=== PATIENT | female | born 1985 | race Caucasian/White ===

== ENCOUNTER → 2017-05-21 07:30 | Outpatient (CLI) | payer OTHER, MEDICAID, SELFPAY ==
[2017-05-21 08:05] LABS: Basophils # 0.1 K/mm3 (0-0.2); Basophils % 1.2 % (0.1-2.0); Eosinophils # 0.2 K/mm3 (0.0-0.4); Eosinophils % 2.5 % (0.1-12.0); Hematocrit 39.1 % (37.0-47.0); Hemoglobin 12.7 g/dL (12.2-16.2); Lymphocytes # 2.5 K/mm3 (0.7-4.5); Lymphocytes % 31.5 K/mm3 (10-50); Mean Corpuscular HGB Conc 32.6 g/dL (31.8-35.4); Mean Corpuscular Volume 89.1 fl (81-99); Mean Platelet Volume 7.6 fl (7.4-10.4); Monocytes # 0.4 K/mm3 (0.1-1.0); Monocytes % 4.8 % (1.7-9.3); Neutrophils # 4.7 K/mm3 (1.8-7.8); Platelet Count 230 K/mm3 (142-424); Red Blood Count 4.39 M/mm3 (4.20-5.40); Red Cell Distribution Width 13.7 % (11.5-17.5); White Blood Count 7.9 K/mm3 (4.8-10.8)
[2017-05-21 08:39] LABS: Anion Gap 11.2 mEq/L (5-15); Blood Urea Nitrogen 7 mg/dL (7-18); Carbon Dioxide 27 mmol/L (21.0-32.0); Chloride 107 mmol/L (98-107); Creatinine,Serum 0.61 mg/dL (0.55-1.02); Estimated Glomerular Filt Rate 112 ml/min (>60); GFR (African American) 136 ML/MIN (>60); Glucose 87 mg/dL (74-106); Potassium 4.2 mmoL/L (3.5-5.1); Sodium 141 mmol/L (136-145)
[2017-05-21 08:42] LABS: HCG,Quantitative 0 mIU/mL
== END ==
PROVIDERS: PCP Family Medicine; Visit Provider Nurse Practitioner Obstetrics & Gynecology
DX: N92.0 Excessive and frequent menstruation with regular cycle (principal); N94.6 Dysmenorrhea, unspecified; R10.2 Pelvic and perineal pain; Z01.812 Encounter for preprocedural laboratory examination
CPT/HCPCS: 36415; 80048; 84702; 85025

== ENCOUNTER 2017-07-18 16:32 | Emergency (ER) | payer MEDICAID, SELFPAY ==
[2017-07-18 16:51] VITALS: BP 132/86; PULSE 88; RESP 18; TEMP 37.4; O2SAT 98; BMI 28.3
[2017-07-18 17:02] LABS: UTC Influenza A Antigen Negative (Negative); UTC Influenza B Antigen Negative (Negative)
--- NOTE | 2017-07-18 17:41 | HMH.EDUTC ---
[facility] [place] Disposition Clinical Impression: Sinusitis Qualifiers: Sinusitis location: pansinusitis Chronicity: acute Recurrence: recurrent Qualified Code(s): J01.41 - Acute recurrent pansinusitis Disposition: Home, Self-Care Condition on Discharge: Good Instructions: DI for Sinusitis Additional Instructions: * Continue and complete antibiotic * Start steroid tomorrow since you had infection today. Helps with inflammation therefore, cough, drainage, pressure. Follow directions on package. Rvwd side effects. Pt reports they have taken them before. * Stop robitussin, theraflu and any other otc cough/sinus medication. Bromfed may cause drowsiness. Know how it effects you (or your child) before driving, caring for small children, or sending your child to school. No other antihistamines/allergy medications while taking bromfed. * Flonase 2 sprays each nostril daily to help with nasal congestion, sinus and ear pressure/inflammation * Lots of fluids * Sleep elevated * Sinus rinse twice a day * Humidifier/vaporizer Prescriptions: Brompheniramine/Pseudoephed/Dm [Bromfed DM Cough Syrup 5mL] 10 ml PO QID PRN #240 ml PRN Reason: Cough Fluticasone Propionate [Flonase 50mcg nasal spray 16gm] 2 spr NS DAILY #1 bottle methylPREDNISolone [Medrol] 4 mg PO DIRECTED #1 tab.ds.pk Referrals: Vibha Barragan MD [Primary Care Provider] - (Follow up IMMEDIATELY for new or worsening symptoms OR no noticeable improvement over the next 72 hours. If this continues to reoccur you might need daily medication for prevention or referral to ENT so BE SURE to follow up. 911 for difficulty breathing or swallowing) Time of Disposition: 17:57 Medical Decision Making - Devante Inquiry Pt receiving controlled substance: No Vital Signs: 07/18/17 16:51 Temperature 99.3 F Temperature Source Temporal Artery Scan Pulse Rate [Brachial] 88 Respiratory Rate 18 Blood Pressure [Right Arm] 132/86 Blood Pressure Mean [Right Arm] 101 Blood Pressure Position [Right Arm] Sitting 02 Sat by Pulse Oximetry 98 - Lab Data Lab results reviewed: Yes: I reviewed the patient's lab results. Lab Results 07/18/17 16:52: Influenza Type A Ag Negative, Influenza Type B Ag Negative [facility] [place] HPI - General Stated complaint: sinus,cough,chills Time Seen by Provider: 07/18/17 17:41 Mode of Arrival: Ambulatory Source of Information: Patient Limitations: No Limitations Description of Symptoms (Recalled from Triage Doc. by RN): SEEN BY DR NOEMI FAYE SUNDAY AND DX WITH SINUS INFECTION AND GIVEN ANTIBIOTIC. CONTINUES TO HAVE FEVER, CHILLS, COUGH AND H/A. HEENT Symptoms (Recalled from RN notes): Yes Resp Symptoms (Recalled from RN notes): Yes Skin Symptoms (Recalled from RN notes): No MS Symptoms (Recalled from RN notes): No Functional Status (Recalled from RN notes): NA - History of Present Illness Provider Complaint: c/o continued sinus pressure. Started 2 weeks ago. Theraflu wasn't helping. Saw PCP, 5 days later. Dx sinusitis. Treated w/ pt believes amoxicillin. Still no improvement despite robitussin. Hx of these same symptoms in Apr 2017 and Feb 2017. Son w/ same symptoms but dx ear infection. - Related Data Home Medications Medication Instructions Recorded Confirmed Loratadine [Claritin 10mg Tablet] 10 mg PO DAILY 05/22/17 05/22/17 Propranolol HCl [Propranolol HCl 80 mg PO DAILY 05/22/17 05/22/17 ER] Previous Rx's Medication Instructions Recorded Brompheniramine/Pseudoephed/Dm 10 ml PO QID PRN #240 ml 07/18/17 [Bromfed DM Cough Syrup 5mL] Fluticasone Propionate [Flonase 2 spr NS DAILY #1 bottle 07/18/17 50mcg nasal spray 16gm] methylPREDNISolone [Medrol] 4 mg PO DIRECTED #1 tab.ds.pk 07/18/17 Allergies Allergy/AdvReac Type Severity Reaction Status Date / Time Sulfa (Sulfonamide Allergy Intermediate I-HIVES Verified 05/22/17 13:22 Antibiotics) - Worker's Comp Is this a Worker's Comp case?: No [facility] History I have reviewed the rickie
--- NOTE | 2017-07-18 17:50 | ED_ITS ---
[facility] [place] Clinical Impression: Sinusitis Qualifiers: Sinusitis location: pansinusitis Chronicity: acute Recurrence: recurrent Qualified Code(s): J01.41 - Acute recurrent pansinusitis Disposition: Home, Self-Care Condition on Discharge: Good Instructions: DI for Sinusitis Additional Instructions: * Continue and complete antibiotic * Start steroid tomorrow since you had infection today. Helps with inflammation therefore, cough, drainage, pressure. Follow directions on package. Rvwd side effects. Pt reports they have taken them before. * Stop robitussin, theraflu and any other otc cough/sinus medication. Bromfed may cause drowsiness. Know how it effects you (or your child) before driving, caring for small children, or sending your child to school. No other antihistamines/allergy medications while taking bromfed. * Flonase 2 sprays each nostril daily to help with nasal congestion, sinus and ear pressure/inflammation * Lots of fluids * Sleep elevated * Sinus rinse twice a day * Humidifier/vaporizer Prescriptions: Brompheniramine/Pseudoephed/Dm [Bromfed DM Cough Syrup 5mL] 10 ml PO QID PRN # 240 ml PRN Reason: Cough Fluticasone Propionate [Flonase 50mcg nasal spray 16gm] 2 spr NS DAILY #1 bottle methylPREDNISolone [Medrol] 4 mg PO DIRECTED #1 tab.ds.pk Referrals: Vibha Barragan MD [Primary Care Provider] - (Follow up IMMEDIATELY for new or worsening symptoms OR no noticeable improvement over the next 72 hours. If this continues to reoccur you might need daily medication for prevention or referral to ENT so BE SURE to follow up. 911 for difficulty breathing or swallowing) Time of Disposition: 17:57 Medical Decision Making - Devante Inquiry Pt receiving controlled substance: No Vital Signs: 07/18/17 16:51 Temperature 99.3 F Temperature Source Temporal Artery Scan Pulse Rate [Brachial] 88 Respiratory Rate 18 Blood Pressure [Right Arm] 132/86 Blood Pressure Mean [Right Arm] 101 Blood Pressure Position [Right Arm] Sitting 02 Sat by Pulse Oximetry 98 - Lab Data Lab results reviewed: Yes: I reviewed the patient's lab results. Lab Results 07/18/17 16:52: Influenza Type A Ag Negative, Influenza Type B Ag Negative [facility] [place] HPI - General Stated complaint: sinus,cough,chills Time Seen by Provider: 07/18/17 17:41 Mode of Arrival: Ambulatory Source of Information: Patient Limitations: No Limitations Description of Symptoms (Recalled from Triage Doc. by RN): SEEN BY DR NOEMI FAYE SUNDAY AND DX WITH SINUS INFECTION AND GIVEN ANTIBIOTIC. CONTINUES TO HAVE FEVER, CHILLS, COUGH AND H/A. HEENT Symptoms (Recalled from RN notes): Yes Resp Symptoms (Recalled from RN notes): Yes Skin Symptoms (Recalled from RN notes): No MS Symptoms (Recalled from RN notes): No Functional Status (Recalled from RN notes): NA - History of Present Illness Provider Complaint: c/o continued sinus pressure. Started 2 weeks ago. Theraflu wasn't helping. Saw PCP, 5 days later. Dx sinusitis. Treated w/ pt believes amoxicillin. Still no improvement despite robitussin. Hx of these same symptoms in Apr 2017 and Feb 2017. Son w/ same symptoms but dx ear infection. - Related Data Home Medications Medication Instructions Recorded Confirmed Loratadine [Claritin 10mg Tablet] 10 mg PO DAILY 05/22/17 05/22/17 Propranolol HCl [Propranolol HCl 80 mg PO DAILY 05/22/17 05/22/17 ER] Previous Rx's Medication Instructions Rec
[2017-07-18 18:08] VITALS: BP 129/85; PULSE 87; RESP 24; TEMP 37.4; O2SAT 98
--- NOTE | 2017-07-18 18:19 | PC.NURSE ---
AFTER PT RECEIVED IM INJECTION SHE WENT TO THE WAITING ROOM QITH HER FAMILY. PT CAME BACK TO THE WINDOW AND SHE THAT SHE DIDNT FEEL WELL. PT VAGALED AT THE WINDOW AND NURSE AND SHINGLES ROOFER HELPER ASSISTED PT TO THE FLOOR. PT STATED THE INJECTION SITE HURTS. PT DENIES BREATHING PROBLEMS, VITALS WERE TAKEN, COOL CLOTH PLACED ON PT'S FOREHEAD. PATIENT AND FAMILY ASKED TO REMAIN IN THE WAITING ROOM.
--- NOTE | 2017-07-18 18:25 | PC.NURSE ---
PT WALKING AROUND IN WAITING ROOM AND STATES SHE FEELS BETTER. PT LEAVING WITH FAMILY AT THIS TIME.
== END 2017-07-18 18:26 | disposition home or self-care (01) ==
PROVIDERS: Emergency Provider Nurse Practitioner Family; Family Provider Family Medicine; PCP Family Medicine
DX: J01.41 Acute recurrent pansinusitis (principal); F17.210 Nicotine dependence, cigarettes, uncomplicated
CPT/HCPCS: 87804; 96372; 99202

== ENCOUNTER → 2017-10-05 10:28 | Outpatient (CLI) | payer MEDICAID, SELFPAY ==
[2017-10-05 10:40] LABS: Basophils # 0.1 K/mm3 (0-0.2); Basophils % 1.7 % (0.1-2.0); Eosinophils # 0.2 K/mm3 (0.0-0.4); Hematocrit 47.3 % (37.0-47.0); Hemoglobin 14.8 g/dL (12.2-16.2); Lymphocytes % 35.7 K/mm3 (10-50); Mean Corpuscular HGB Conc 31.4 g/dL (31.8-35.4); Mean Corpuscular Hemoglobin 28.5 pg (27.0-31.2); Mean Corpuscular Volume 90.7 fl (81-99); Mean Platelet Volume 7.8 fl (7.4-10.4); Monocytes # 0.4 K/mm3 (0.1-1.0); Monocytes % 6.9 % (1.7-9.3); Neutrophils % 51.7 % (37.0-80.0); Platelet Count 253 K/mm3 (142-424); Red Blood Count 5.21 M/mm3 (4.20-5.40); Red Cell Distribution Width 13.7 % (11.5-17.5); White Blood Count 5.7 K/mm3 (4.8-10.8)
[2017-10-05 11:16] LABS: Anion Gap 14.4 mEq/L (5-15); Blood Urea Nitrogen 5 mg/dL (7-18); Calcium 9.2 mg/dL (8.5-10.1); Carbon Dioxide 27 mmol/L (21.0-32.0); Chloride 106 mmol/L (98-107); Creatinine,Serum 0.74 mg/dL (0.55-1.02); Estimated Glomerular Filt Rate 90 ml/min (>60); GFR (African American) 109 ML/MIN (>60); Potassium 4.4 mmoL/L (3.5-5.1); Sodium 143 mmol/L (136-145)
[2017-10-05 11:18] LABS: Glucose 49 mg/dL (74-106)
== END ==
PROVIDERS: Visit Provider Nurse Practitioner Obstetrics & Gynecology
DX: Z01.818 Encounter for other preprocedural examination (principal)
CPT/HCPCS: 36415; 80048; 85025

== ENCOUNTER 2017-10-10 06:00 | Observation (INO) ==
--- NOTE | 2017-10-10 07:13 | Progress Note ---
[facility] Anesthesia Checklist - Patient Identification Patient Identification: Arm Band, Verbal (Name & ) - Structural Data Admitted From: Home Planned Operative Procedure/s: [facility] Consent for Planned Operative Procedure(s) Verified: Yes Verified Documents: Surgical Consent, History and Physical - NPO Status Verified Time NPO: 00:00 - Additional verifications Patient : No Anesthesia Reactions: No Hx Blood Transfusions: No Blood Transfusion Reaction: No Cephalosporin Allergy: No Previous Colonoscopy: No - Cardiovascular Assessment Heart Sounds: S1 & S2 Pulse Strength: Baseline Pulse Rhythm: Regular Peripheral Edema: No - Airway Assessment C-Spine Mobility Assessed: Yes TMJ Mobility Assessed: Yes Dentition: Good Dentition - Neurological Assessment Level of Consciousness: Awake, Alert, Appropriate Hx Seizures: No Numbness or tingling in extremities: No - Anesthesia Plan Anesthesia Risk discussed: Yes Anesthesia Plan: Verified ASA Class: II Anesthesia Type: General [facility] Anesthesia HX I have reviewed the patient's past medical history: Yes Medical History: Reports:: Tuberculosis Denies:: Cancer, Diabetes Mellitus Type 1, Diabetes Mellitus Type 2, Hypertension, Internal Pacemaker, MRSA, Seizures Other Medical History: Denies: Blood Transfusion Reaction Other Surgeries: Yes: Dilation and Curettage, Tubal Ligation, Other. No: Pacemaker Amputation: No Fractures: No *Family Hx:: Cancer, Coronary Artery Disease, Diabetes, Hypertension, Tuberculosis
--- NOTE | 2017-10-10 09:24 | Operative Note ---
Date of procedure: 10/10/17 Pre-op Diagnosis:: Menorrhagia, dysmenorrhea, dyspareunia, possible adenomyosis Post-op Diagnosis:: Menorrhagia, dyspareunia, dysmenorrhea, possible adenomyosis Procedure performed:: Laparoscopically assisted vaginal hysterectomy and bilateral salpingectomy Surgeon:: Bonifacio Montalvo MD Ball Machine Operator(s):: Dr. Pierce CASTINGS TRIMMER:: Clint Roe Anesthesia: GETA Estimated blood loss (mL): 200 Clinical Note:: She is a 32-year-old 3 para 3 lady who complains of severe pain with her periods as well as heavy periods. She has severe pain with intercourse and is not able to have intercourse as result of her discomfort. When I examined her in my office her uterus is bulky and tender possibly consistent with adenomyosis. Having discussed the risks and benefits we like to perform a laparoscopically assisted vaginal hysterectomy and bilateral salpingectomy. Operative findings:: She had a retroverted bulky uterus. The ovaries and tubes appeared normal. The tubes had been previously ligated with Filshie clips. The appendix is visualized appeared normal. The upper abdomen appeared normal. Operative note:: She was taken to the operating room where general anesthesia was found be adequate. She was prepped and draped in the normal sterile fashion in the semi- lithotomy position. A weighted speculum was placed in the vagina and the anterior lip of the cervix was grasped with a tenaculum. I inserted a Nellie retractor into the cervical os. I then changed gloves and injected 10 mL of 0.5 percent ropivacaine around the umbilicus. I made a small incision within the umbilicus and inserted a Veress needle into the abdominal cavity. The abdominal cavity was then insufflated with carbon dioxide gas to a pressure of 20 millimeters of mercury. I then inserted an 11 mm trocar under direct vision. I injected through and through the pubic hairline, made a small incision here and inserted a 5 mm trocar under direct vision. I identified the inferior epigastric arteries on the LEFT side and went lateral to these and injected through and through with ropivacaine.. I made a small incision and inserted an 11 mm trocar under direct vision. This was similarly performed on the patient's RIGHT side. The LEFT round ligament was then grasped and cut with Harmonic scalpel. This was followed by the LEFT tube. I then cut through and cauterized the LEFT utero- ovarian ligament. I opened up the peritoneum anteriorly to the midline. I then took down the posterior aspect of the broad ligament to the level of the uterosacral ligament on the LEFT side. The uterine arteries on the LEFT side were then skeletonized. Hemoclips were placed across the uterine arteries and then the uterine arteries were cauterized with Harmonic scalpel adjacent to the cervix. We then further took down the bladder anteriorly. I grasped the RIGHT round ligament and cut through this with Harmonic scalpel. This was followed by the RIGHT tube. I then cauterized and cut the RIGHT utero- ovarian ligament with Harmonic scalpel. I then freed up the peritoneum anteriorly on the RIGHT side joining up with the midline. I then took down the posterior aspect of the broad ligament to the level of the uterosacral ligament. The uterine arteries on the RIGHT side were skeletonized. Hemoclips were applied to the uterine arteries. I then cauterized and cut the uterine arteries with Harmonic scalpel adjacent to the cervix. I freed up the bladder pillars on the RIGHT side and the LEFT side. I freed up the bladder anteriorly along the cervix. After assuring hemostasis and rinsing the pelvis well we then turned our attention to the fallopian tubes. The RIGHT fallopian tube was grasped at its distal end and cut along the meso salpinx. The tube was removed through the 11 mm trocar site. This was similarly performed on the patient's LEFT side. After assuring hemostasis we then turned our attention to the vaginal portion the surgery. The patient was placed in the lithotomy position. A weighted spectrum was placed in vagina. The anterior and posterior lip of the cervix were grasped with Louis tenacula. I injected 20 mL of 1 percent Xylocaine with epinephrine circumferentially about the cervix. I then circumscribed the cervix with knife. I then opened up into the posterior cul-de-sac with Burleson scissors. A long weighted speculum was then placed to this defect. The left uterosacral ligament was then clamped cut and suture ligated and tied. This is followed by the left cardinal ligament which was clamped cut and suture ligated and tagged. This was followed by clamping cutting and tying the right uterosacral ligament which was also tagged. This is followed by the right cardinal ligament which was clamped cut and suture ligated. I then grasped the anterior vagina mucosa and using both sharp and blunt dissection dissected the bladder off the anterior aspect of the cervix. A [place] retractor was placed through this defect. There were 2 small pedicles of tissue which were clamped cut and the uterus was then removed through the vagina. I then closed the posterior cuff using running 2-0 Vicryl suture in a locked fashion. This was followed by placement of a Escalante suture using 0 PDS first through the posterior vagina and peritoneum and through the left perirectal fascia. I then plicated across posterior peritoneum to the right perirectal fascia and through the peritoneum vagina. The suture was left to be tied at the end. I then closed the peritoneum using 2-0 PDS suture in a pursestring fashion. The cuff was then closed using running 0 Vicryl suture in a locked fashion from anterior to posterior from left to right. A Stark catheter was then placed in the bladder. Clear urine was seen to flow. She was once of again placed in the semi-lithotomy position. I changed gloves. The abdominal cavity was insufflated with carbon oxide gas to a pressure of 20 mmHg. The pelvis was rinsed and once again hemostasis was assured. I then left approximately 100 cc of saline with the pelvis and injected 20 cc of 0.5% ropivacaine into the pelvis as well. The secondary trochars were then removed under direct vision. The sites were hemostatic. The gas was let out of the abdomen and the primary trocar and camera were removed together. No bowel was seen to follow. The 11 mm trocar sites were closed deeply with 2-0 Vicryl suture followed by running subcuticular 4-0 Monocryl suture. The 5 mm trocar site was closed with subcuticular 4-0 Monocryl suture. Sterile dressings were applied. The patient tolerated the procedure well and was taken to the recovery room in excellent condition. All sponge instrument and needle counts were correct. Estimate a blood loss was less than 200 mL. Condition: stable Disposition: PACU Specimens:: Uterus and fallopian tubes. Complications:: None
--- NOTE | 2017-10-10 09:30 | Progress Note ---
[facility] Anesthesia Record Part II Discharge Time: 10:00 Destination: 2nd floor PACU nurse assessment reviewed?: Yes Patient Condition:: Good Anesthesia Complications:: None
--- NOTE | 2017-10-10 09:30 | Progress Note ---
[facility] Anesthesia Record Part I Intake, IV Amount: 1,500 Estimated blood loss (mL): 200 Urine output (mL): 50 Blood Pressure: 105/61 SaO2: 95 Pulse Rate: 64 Respiratory Rate: 16 Temperature: 97.5 F Patient is:: Drowsy, Stable Stable to PACU at:: 09:30
--- NOTE | 2017-10-10 11:01 | Pharmacy Consult Notes ---
[facility] Pharmacy VTE Monitoring - Patient Demographics Admission date: 10/10/17 Report Date: 10/10/17 Time: 11:00 Allergies/Adverse Reactions: Patient Allergies Sulfa (Sulfonamide Antibiotics) Allergy (Intermediate, Verified 09/11/17 11:25) I-HIVES steroid shot Adverse Reaction (Uncoded 10/09/17 12:04) passed out Height: 1.65 m Weight: 80.286 kg - VTE Risk Clinical Trial Participant: Yes - Prophylaxis VTE Prophylaxis Ordered?: Yes Types of VTE Prophylaxis: IPCS Knee High (POST OP) Location of Applied Device: Bilateral Lower Extremeties
[2017-10-10 16:25] LABS: Hematocrit 36.3 % (37.0-47.0); Hemoglobin 11.4 g/dL (12.2-16.2)
[2017-10-11 06:03] LABS: Basophils % 0.2 % (0.1-2.0); Eosinophils # 0.1 K/mm3 (0.0-0.4); Eosinophils % 0.5 % (0.1-12.0); Hematocrit 35.1 % (37.0-47.0); Lymphocytes # 3.1 K/mm3 (0.7-4.5); Lymphocytes % 20.8 K/mm3 (10-50); Mean Corpuscular HGB Conc 31.4 g/dL (31.8-35.4); Mean Corpuscular Hemoglobin 28.4 pg (27.0-31.2); Mean Corpuscular Volume 90.3 fl (81-99); Mean Platelet Volume 8.2 fl (7.4-10.4); Monocytes # 0.6 K/mm3 (0.1-1.0); Monocytes % 4.3 % (1.7-9.3); Neutrophils % 74.3 % (37.0-80.0); Platelet Count 235 K/mm3 (142-424); Red Blood Count 3.89 M/mm3 (4.20-5.40); Red Cell Distribution Width 13.6 % (11.5-17.5); White Blood Count 14.8 K/mm3 (4.8-10.8)
[2017-10-11 06:18] LABS: Anion Gap 11.8 mEq/L (5-15); Calcium 8.6 mg/dL (8.5-10.1); Potassium 3.8 mmoL/L (3.5-5.1)
--- NOTE | 2017-10-11 08:29 | Discharge Summary ---
General - General Admission date:: 10/10/17 Discharge date: 10/11/17 HPI HPI: She is a 32-year-old lady who complains of severe dysmenorrhea, dyspareunia and menorrhagia. She still had a bulky tender uterus possibly consistent with adenomyosis. After having discussed the risks and benefit elected to go ahead with a laparoscopically assisted vaginal hysterectomy and bilateral salpingectomy. Hospital Course Hospital Course: On October 10, 2017 she underwent a laparoscopically assisted vaginal hysterectomy and bilateral salpingectomy. She has done well and has remained afebrile throughout her hospitalization. She is eating and drinking and ambulating. She denies any short breath or chest. She denies any calf tenderness. On examination her incisions are clean and dry. She is voiding well. Objective Vital signs: Temp Pulse Resp BP Pulse Ox 98.0 F 56 L 18 99/53 99 10/11/17 04:30 10/11/17 04:30 10/11/17 04:30 10/11/17 04:30 10/11/17 04:30 no acute distress - *Routine HEENT Exam Head: Present: normocephalic - *Routine Respiratory Exam Comments: She is breathing well and there are no accessory muscle use. - *Routine Cardiovascular Exam Present: RRR - *Routine Abdominal Exam Present: soft Comments: Her incisions are clean and dry. Results Labs on day of discharge: Labs from last 24 hours 10/11/17 10/11/17 10/10/17 05:30 05:30 14:00 WBC 14.8 H RBC 3.89 L Hgb 11.0 L 11.4 L Hct 35.1 L 36.3 L MCV 90.3 MCH 28.4 MCHC 31.4 L RDW 13.6 Plt Count 235 MPV 8.2 Neut % (Auto) 74.3 Lymph % (Auto) 20.8 [place] % (Auto) 4.3 Eos % (Auto) 0.5 Baso % (Auto) 0.2 Neut # (Auto) 11.0 H Lymph # (Auto) 3.1 [place] # (Auto) 0.6 Eos # (Auto) 0.1 Baso # (Auto) 0.0 Sodium 143 Potassium 3.8 Chloride 108 H Carbon Dioxide 27 Anion Gap 11.8 BUN 8 Creatinine 0.75 Estimated Creat Clear 134 Estimated GFR 88 Est GFR ( Amer) 107 Glucose 133 H Calcium 8.6 Urine Color Urine Appearance Urine pH Ur Specific [place] Urine Protein Urine Glucose (UA) Urine Ketones Urine Blood Urine Nitrate Urine Bilirubin Urine Urobilinogen Ur Leukocyte Esterase Urine RBC Urine WBC Ur Squamous Epith Cells Urine Bacteria 10/10/17 09:00 WBC RBC Hgb Hct MCV MCH MCHC RDW Plt Count MPV Neut % (Auto) Lymph % (Auto) [place] % (Auto) Eos % (Auto) Baso % (Auto) Neut # (Auto) Lymph # (Auto) [place] # (Auto) Eos # (Auto) Baso # (Auto) Sodium Potassium Chloride Carbon Dioxide Anion Gap BUN Creatinine Estimated Creat Clear Estimated GFR Est GFR ( Amer) Glucose Calcium Urine Color Yellow Urine Appearance Cloudy Urine pH 6.0 Ur Specific [place] >= 1.030 Urine Protein 1+ Urine Glucose (UA) Negative Urine Ketones Negative Urine Blood Negative Urine Nitrate Negative Urine Bilirubin Negative Urine Urobilinogen 0.2 Ur Leukocyte Esterase Negative Urine RBC None Urine WBC Occasional Ur Squamous Epith Cells 10-20 Urine Bacteria 3+ A DS: Diagnosis - Discharge Diagnosis (1) Menorrhagia Status: Acute (2) Dysmenorrhea Status: Acute (3) Dyspareunia Status: Acute (4) Adenomyosis Status: Acute Discharge Plan - Patient Discharge Instructions ACTIVITY: No heavy lifting DIET: continue same diet - Follow up Plan Disposition: Home, Self-Shelter Medications: Home Medications Medication Instructions Recorded Confirmed Type Azithromycin [Z-Nigel 250mg Tab] 250 mg PO DIRECTED 10/09/17 10/11/17 History Cetirizine HCl [Zyrtec] 10 mg PO HS 10/09/17 10/09/17 History Levonorgestrel [Mirena] 1 insert INTRAUTERI ONCE 10/09/17 10/09/17 History Promethazine/Dextromethorphan 1 tsp PO Q6HP PRN 10/09/17 10/09/17 History [Promethazine-Dm Syrup] Propranolol HCl [Propranolol HCl 120 mg PO DAILY 10/09/17 10/09/17 History ER] predniSONE [Deltasone 2.5mg 2.5 mg PO BID 10/10/17 10/10/17 History tab] Prescriptions/Medication Reconciliation: New Oxycodone HCl/Acetaminophen [Percocet 5/325mg tablet] 1 - 2 tab PO Q4- 6H PRN #30 tab PRN Reason: Severe Pain Continue naproxen 500 mg tablet 500 mg PO BID PRN #60 tab PRN Reason: pain Promethazine/Dextromethorphan [Promethazine-Dm Syrup] 1 tsp PO Q6HP PRN PRN Reason: Cough Propranolol HCl [Propranolol HCl ER] 120 mg PO DAILY Levonorgestrel [Mirena] 1 insert INTRAUTERI ONCE predniSONE [Deltasone 2.5mg tab] 2.5 mg PO BID Cetirizine HCl [Zyrtec] 10 mg PO HS Azithromycin [Z-Nigel 250mg Tab] 250 mg PO DIRECTED
== END 2017-10-11 09:00 | disposition home or self-care (01) ==
LOC: OR 06:00 → OB 10:17 → INTOOBSV 10:17
PROVIDERS: ADMIT Nurse Practitioner Obstetrics & Gynecology; ATTEND Nurse Practitioner Obstetrics & Gynecology

== ENCOUNTER → 2017-11-02 09:59 | Outpatient (CLI) | payer MEDICAID, SELFPAY ==
--- NOTE | 2017-11-02 10:05 | US_ITS ---
US thyroid HISTORY: ITS.REASON: ENLARGED THYROID ORDERING PHYSICIAN: Asya Bustos PATIENT AGE: 32 years Comparison: None FINDINGS: The right lobe is 4.2 x 1.9 x 1.6 cm with homogeneous echogenicity. No discrete mass. The left lobe is 4.4 x 1.3 x 1.5 cm with homogeneous echogenicity and no discrete mass. The isthmus has an unremarkable appearance. IMPRESSION: Mildly enlarged thyroid gland. No nodules evident
== END ==
PROVIDERS: Family Provider Family Medicine; PCP Family Medicine; Visit Provider Nurse Practitioner
DX: E04.9 Nontoxic goiter, unspecified (principal)
CPT/HCPCS: 76536

== ENCOUNTER → 2018-01-08 11:27 | Outpatient (CLI) | payer MEDICAID, SELFPAY ==
--- NOTE | 2018-01-08 11:35 | XR_ITS ---
XR chest 2V HISTORY: ITS.REASON: INACTIVE TUBERCULOSIS ORDERING PHYSICIAN: Avis Jain PATIENT AGE: 32 years COMPARISON: 09/13/2016 FINDINGS: The cardiomediastinal silhouette and pulmonary vascularity are within normal limits. The lungs are clear without infiltrates, suspicious nodules, or pleural effusions. There is prominent calcified left hilar lymph node unchanged. No cavitating process evident. No acute bony abnormalities. IMPRESSION: No change with no acute finding. No radiographic evidence of active tuberculosis
== END ==
PROVIDERS: PCP Family Medicine; Visit Provider Nurse Practitioner Family
DX: R76.11 Nonspecific reaction to tuberculin skin test without active tuberculosis (principal)
CPT/HCPCS: 71046

== ENCOUNTER → 2019-01-18 10:42 | Outpatient (CLI) | payer BC, SELFPAY ==
--- NOTE | 2019-01-18 10:51 | XR_ITS ---
PROCEDURE: XR CHEST 2V CLINICAL HISTORY: HX OF PPD Positive PPD COMPARISON: CXR CHEST(2 VIEWS-NOT PORTABLE) from 09/13/2016 CXR2V XR chest 2V from 01/08/2018 FINDINGS: The cardiomediastinal silhouette and pulmonary vascularity are within normal limits. Calcified node is present in the left hilum The remaining lungs are clear. No acute bony anomaly IMPRESSION: No change with no acute finding. Calcified lymph node is present in the left hilum unchanged. No radiographic evidence of active granulomatous process Dictated by: Eleazar Crawford MD 01/18/2019 11:28 Electronically signed by Eleazar Crawford MD in [place] 01/18/2019 11:28
== END ==
PROVIDERS: PCP Family Medicine; Visit Provider Family Medicine
DX: Z92.89 Personal history of other medical treatment (principal)
CPT/HCPCS: 71046

== ENCOUNTER → 2019-03-26 09:13 | Outpatient (CLI) | payer BC, SELFPAY ==
[2019-03-26 15:05] LABS: Chol/HDL Ratio 3.4 (1-3.5); Cholesterol 181 mg/dL (140-200); HDL Cholesterol 54 mg/dL (29-89); LDL Cholesterol 116 mg/dL (0-130); Triglycerides 53 mg/dL (30-200); VLDL Cholesterol 11 mg/dL (0-40)
== END ==
PROVIDERS: PCP Nurse Practitioner Family; Visit Provider Nurse Practitioner Family
DX: E78.5 Hyperlipidemia, unspecified (principal)
CPT/HCPCS: 36415; 80061

== ENCOUNTER 2020-03-12 17:18 | Emergency (ER) | payer BC, SELFPAY ==
[2020-03-12 17:55] VITALS: BP 112/79; PULSE 78; RESP 18; TEMP 36.6; O2SAT 99; BMI 28.3
--- NOTE | 2020-03-12 18:12 | HMH.EDUTC ---
[facility] [place] Disposition Clinical Impression: Exposure to COVID-19 virus Disposition: Home, Self-Care Condition on Discharge: Good Instructions: Preventing the Spread of Coronavirus Discharge Instructions Additional Instructions: Drink plenty of fluids. Take tylenol for pain or fever. Follow up with your regular doctor. GO TO THE ER FOR ANY WORSENING SYMPTOMS Referrals: Shubham Bland MD [Primary Care Provider] - Time of Disposition: 18:13 Medical Decision Making - Medical Records Medical records reviewed: No: I reviewed the patient's medical records. - Devante Inquiry Pt receiving controlled substance: No Vital Signs: 03/12/20 17:55 Temperature 97.9 F Temperature Source Oral Pulse Rate [Radial] 78 Respiratory Rate 18 Blood Pressure [Right Arm] 112/79 Blood Pressure Mean [Right Arm] 90 Blood Pressure Source [Right Arm] Automatic Cuff Blood Pressure Position [Right Arm] Sitting 02 Sat by Pulse Oximetry 99 Oxygen Delivery Method Room Air Orders (Tests/Meds): ORDERS Category Date Time Status Covid-19 Nasal PCR ([facility]) Routine Lab 03/12/20 17:45 Received [facility] [place] HPI - General Stated complaint: wants covid test Time Seen by Provider: 03/12/20 18:12 Mode of Arrival: Ambulatory Source of Information: Patient Limitations: No Limitations Description of Symptoms (Recalled from Triage Doc. by RN): COVID TEST HEENT Symptoms (Recalled from RN notes): No Resp Symptoms (Recalled from RN notes): No Skin Symptoms (Recalled from RN notes): No MS Symptoms (Recalled from RN notes): No Functional Status (Recalled from RN notes): WNL - History of Present Illness Provider Complaint: She was exposed to covid thru a coworker. She denies any symptoms. - Related Data Home Medications Medication Instructions Recorded Confirmed Cetirizine HCl [Zyrtec] 10 mg PO HS 10/09/17 10/09/17 Propranolol HCl [Propranolol HCl 120 mg PO DAILY 10/09/17 10/09/17 ER] Previous Rx's Medication Instructions Recorded naproxen 500 mg tablet 500 mg PO BID PRN #60 tab 08/15/17 Allergies Allergy/AdvReac Type Severity Reaction Status Date / Time Sulfa (Sulfonamide Allergy Intermediate I-HIVES Verified 11/19/17 13:24 Antibiotics) steroid shot AdvReac passed out Uncoded 11/19/17 13:24 - Worker's Comp Is this a Worker's Comp case?: No [facility] History - Hepatitis A Screen Drug use history?: No High risk sexual behaviors?: No History of sexually transmitted infection?: No Currently employed?: No Childcare worker?: No Do you have indoor plumbing?: Yes Do you have electricity?: Yes Attestation statement:: This patient has been screened for Hepatitis A risk factors. I have reviewed the patient's past medical history: Yes Medical History: Reports:: Tuberculosis Denies:: Cancer, Diabetes Mellitus Type 1, Diabetes Mellitus Type 2, Hypertension, Internal Pacemaker, MRSA, Seizures Other Medical History: Denies: Blood Transfusion Reaction Laterality Cases: Bilateral: Other Other Surgeries: Yes: Dilation and Curettage, Tubal Ligation, Other. 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
[2020-03-12 18:36] VITALS: BP 112/79; PULSE 78; RESP 18; TEMP 36.6; O2SAT 99
== END 2020-03-12 18:36 | disposition home or self-care (01) ==
PROVIDERS: Emergency Provider Nurse Practitioner Family; PCP Family Medicine
DX: Z20.828 Contact with and (suspected) exposure to other viral communicable diseases (principal); Z88.2 Allergy status to sulfonamides
CPT/HCPCS: 99201; U0003

== ENCOUNTER 2020-03-19 19:24 | Emergency (ER) | payer BC, SELFPAY ==
[2020-03-19 19:30] VITALS: BP 133/75; PULSE 77; RESP 20; TEMP 36.9; O2SAT 98; BMI 25.0
--- NOTE | 2020-03-19 19:54 | HMH.EDUTC ---
[facility] [place] Disposition Clinical Impression: Exposure to COVID-19 virus Disposition: Home, Self-Care Condition on Discharge: Good Instructions: Preventing the Spread of Coronavirus Discharge Instructions Additional Instructions: Drink plenty of fluids. Take tylenol for pain or fever. Return if you begin to have difficulty breathing. Follow up with your regular doctor. GO TO THE ER FOR ANY WORSENING SYMPTOMS Referrals: Shubham Bland MD [Primary Care Provider] - Time of Disposition: 19:56 Medical Decision Making - Medical Records Medical records reviewed: No: I reviewed the patient's medical records. - Devante Inquiry Pt receiving controlled substance: No Vital Signs: 03/19/20 19:30 Temperature 98.5 F Temperature Source Oral Pulse Rate [Right Brachial] 77 Respiratory Rate 20 Blood Pressure [Right Arm] 133/75 Blood Pressure Mean [Right Arm] 94 Blood Pressure Source [Right Arm] Automatic Cuff Blood Pressure Position [Right Arm] Sitting 02 Sat by Pulse Oximetry 98 Oxygen Delivery Method Room Air Orders (Tests/Meds): ORDERS Category Date Time Status Covid-19 Nasal PCR Sendout Stat Lab 03/19/20 19:35 Received [facility] [place] HPI - General Stated complaint: covid test Time Seen by Provider: 03/19/20 19:54 Mode of Arrival: Ambulatory Source of Information: Patient Limitations: No Limitations Description of Symptoms (Recalled from Triage Doc. by RN): PATIENT REQUESTING COVID TEST; NO SYMPTOMS OR KNOWN DIRECT EXPOSURE HEENT Symptoms (Recalled from RN notes): No Resp Symptoms (Recalled from RN notes): No Skin Symptoms (Recalled from RN notes): No MS Symptoms (Recalled from RN notes): No Functional Status (Recalled from RN notes): WNL - History of Present Illness Provider Complaint: She is here needing a covid test. She denies any symptoms. - Related Data Home Medications Medication Instructions Recorded Confirmed Cetirizine HCl [Zyrtec] 10 mg PO HS 10/09/17 03/19/20 Allergies Allergy/AdvReac Type Severity Reaction Status Date / Time Sulfa (Sulfonamide Allergy Intermediate I-HIVES Verified 11/19/17 13:24 Antibiotics) steroid shot AdvReac passed out Uncoded 11/19/17 13:24 - Worker's Comp Is this a Worker's Comp case?: No [facility] History - Hepatitis A Screen Drug use history?: No High risk sexual behaviors?: No History of sexually transmitted infection?: No Currently employed?: No Childcare worker?: No Do you have indoor plumbing?: Yes Do you have electricity?: Yes Attestation statement:: This patient has been screened for Hepatitis A risk factors. I have reviewed the patient's past medical history: Yes Medical History: Reports:: Tuberculosis Denies:: Cancer, Diabetes Mellitus Type 1, Diabetes Mellitus Type 2, Hypertension, Internal Pacemaker, MRSA, Seizures Other Medical History: Denies: Blood Transfusion Reaction Laterality Cases: Bilateral: Other Other Surgeries: Yes: Dilation and Curettage, Tubal Ligation, Other. 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
[2020-03-19 20:05] VITALS: BP 133/75; PULSE 77; RESP 20; TEMP 36.9; O2SAT 98
[2020-03-21 09:21] LABS: Covid-19 Nasal PCR Sendout UK Not Detected
== END 2020-03-19 20:06 | disposition home or self-care (01) ==
PROVIDERS: Emergency Provider Nurse Practitioner Family; PCP Family Medicine
DX: Z20.828 Contact with and (suspected) exposure to other viral communicable diseases (principal); Z88.2 Allergy status to sulfonamides; Z90.79 Acquired absence of other genital organ(s)
CPT/HCPCS: 99201; U0003

== ENCOUNTER 2020-04-02 12:28 | Emergency (ER) | payer BC, SELFPAY ==
[2020-04-02 12:48] VITALS: BP 129/70; PULSE 90; RESP 18; O2SAT 100; BMI 25.0
--- NOTE | 2020-04-02 13:20 | HMH.EDUTC ---
[facility] [place] Disposition Clinical Impression: Exposure to COVID-19 virus Disposition: Home, Self-Care Condition on Discharge: Good Instructions: Preventing the Spread of Coronavirus Discharge Instructions Additional Instructions: Drink plenty of fluids. Take tylenol for pain or fever. Return if you begin to have difficulty breathing. Follow up with your regular doctor. GO TO THE ER FOR ANY WORSENING SYMPTOMS Referrals: Shubham Bland MD [Primary Care Provider] - Time of Disposition: 13:21 Medical Decision Making - Medical Records Medical records reviewed: No: I reviewed the patient's medical records. - Devante Inquiry Pt receiving controlled substance: No Vital Signs: 04/02/20 12:48 04/02/20 13:30 Temperature 98.0 F Temperature Source Oral Pulse Rate 90 Pulse Rate [Radial] 90 Respiratory Rate 18 18 Blood Pressure 129/70 Blood Pressure [Right Arm] 129/70 Blood Pressure Mean [Right Arm] 89 Blood Pressure Source Automatic Cuff Blood Pressure Source [Right Arm] Automatic Cuff Blood Pressure Position Sitting Blood Pressure Position [Right Arm] Sitting 02 Sat by Pulse Oximetry 100 Oxygen Delivery Method Room Air Room Air Orders (Tests/Meds): ORDERS Category Date Time Status Covid-19 Nasal PCR Sendout Fabián Stat Lab 04/02/20 12:45 Received [facility] [place] HPI - General Stated complaint: covid test Time Seen by Provider: 04/02/20 13:20 Mode of Arrival: Ambulatory Source of Information: Patient Limitations: No Limitations Description of Symptoms (Recalled from Triage Doc. by RN): covid test HEENT Symptoms (Recalled from RN notes): No Resp Symptoms (Recalled from RN notes): No Skin Symptoms (Recalled from RN notes): No MS Symptoms (Recalled from RN notes): No Functional Status (Recalled from RN notes): wnl - History of Present Illness Provider Complaint: Her tested positive for covid last week. She denies any symptoms. - Related Data Home Medications Medication Instructions Recorded Confirmed Cetirizine HCl [Zyrtec] 10 mg PO HS 10/09/17 03/19/20 Allergies Allergy/AdvReac Type Severity Reaction Status Date / Time Sulfa (Sulfonamide Allergy Intermediate I-HIVES Verified 11/19/17 13:24 Antibiotics) steroid shot AdvReac passed out Uncoded 11/19/17 13:24 - Worker's Comp Is this a Worker's Comp case?: No [facility] History - Hepatitis A Screen Drug use history?: No High risk sexual behaviors?: No History of sexually transmitted infection?: No Currently employed?: No Childcare worker?: No Do you have indoor plumbing?: Yes Do you have electricity?: Yes Attestation statement:: This patient has been screened for Hepatitis A risk factors. I have reviewed the patient's past medical history: Yes Medical History: Reports:: Tuberculosis Denies:: Cancer, Diabetes Mellitus Type 1, Diabetes Mellitus Type 2, Hypertension, Internal Pacemaker, MRSA, Seizures Other Medical History: Denies: Blood Transfusion Reaction Laterality Cases: Bilateral: Other Other Surgeries: Yes: Dilation and Curettage, Tubal Ligation, Other. 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
[2020-04-02 13:30] VITALS: BP 129/70; PULSE 90; RESP 18; TEMP 36.7; O2SAT 100
[2020-04-03 17:44] LABS: Covid-19 Nasal PCR Sendout Lex Not Detected
== END 2020-04-02 13:31 | disposition home or self-care (01) ==
PROVIDERS: Emergency Provider Nurse Practitioner Family; PCP Family Medicine
DX: Z20.828 Contact with and (suspected) exposure to other viral communicable diseases (principal); F17.210 Nicotine dependence, cigarettes, uncomplicated; Z88.2 Allergy status to sulfonamides
CPT/HCPCS: 99201; U0004

== ENCOUNTER → 2020-12-02 13:15 | Outpatient (CLI) | payer BC, SELFPAY ==
--- NOTE | 2020-12-02 14:07 | XR_ITS ---
PROCEDURE: XR SHOULDER LT MIN 2V CLINICAL INDICATION: LT SHOULDER PAIN COMPARISON: No exams were available for comparison FINDINGS: No fracture or dislocation. No lytic or blastic change. There is normal mineralization. The joint spaces are well-preserved. No significant degenerative/arthritic changes. No erosive changes evident. Other findings:No subacromial stenosis IMPRESSION: No acute findings. Dictated by: Eleazar Crawford MD 12/02/2020 15:52 Eleazar Crawford MD in [place] 12/02/2020 15:52
--- NOTE | 2020-12-02 14:07 | XR_ITS ---
PROCEDURE: XR CERVICAL SPINE 5V CLINICAL INDICATION: CERVICALGIA,NUMBNESS COMPARISON: CR CS5 CERVICAL SPINE 4 OR 5 VIEWS from 07/01/2014 FINDINGS: Normal alignment. No fracture or dislocation. Foramina are widely patent. No lytic or blastic change. No cervical rib. There is slight decrease in the disc space at C5-C6 with minimal endplate osteophytes. Multiple calcified nodes are present in the mediastinum IMPRESSION: Minimal degenerative disc disease C5-C6 Dictated by: Eleazar Crawford MD 12/02/2020 15:51 Eleazar Crawford MD in [place] 12/02/2020 15:51
== END ==
PROVIDERS: PCP Family Medicine; Visit Provider Nurse Practitioner Family
DX: M25.512 Pain in left shoulder (principal); M54.2 Cervicalgia; R20.0 Anesthesia of skin
CPT/HCPCS: 72050; 73030

== ENCOUNTER → 2021-05-19 12:33 | Outpatient (CLI) | payer BC, SELFPAY | PROVIDERS: Visit Provider Nurse Practitioner | DX: Z20.822 Contact with and (suspected) exposure to COVID-19 (principal) | CPT/HCPCS: C9803; U0003; U0005 ==

== ENCOUNTER 2021-09-15 19:01 | Emergency (ER) | payer BC, SELFPAY ==
[2021-09-15 19:31] VITALS: BP 130/76; PULSE 78; RESP 19; TEMP 36.8; O2SAT 99; BMI 26.1
--- NOTE | 2021-09-15 19:41 | XR_ITS ---
PROCEDURE INFORMATION: Exam: XR Thoracic Spine Exam date and time: 09/15/2021 7:44 PM Age: 36 years old Clinical indication: Other: Pain in between shoulder blades TECHNIQUE: Imaging protocol: XR of the thoracic spine. Views: 3 views. COMPARISON: CR XR CERVICAL SPINE 5V 12/02/2020 2:13 PM FINDINGS: Bones/joints: Mild rotoscoliosis. Soft tissues: Densely calcified lymph nodes are identified in the left hilar and apparently the carinal and right infrahilar chains. Lungs: Included lungs appear clear. Other findings: No evidence of acute displaced cortical disruption or dislocation. IMPRESSION: 1. Densely calcified lymph nodes are identified in the left hilar and apparently the carinal and right infrahilar chains. 2. No evidence of acute fracture disruption or dislocation. 3. Mild rotoscoliosis.
--- NOTE | 2021-09-15 19:41 | HMH.EDUTC ---
[facility] [place] Clinical Impression: Muscle spasm Disposition: Home, Self-Care Condition on Discharge: Good Instructions: DI for Muscle Spasm, Methocarbamol Additional Instructions: *Ibuprofen maulik 6 hours with meal as needed for pain/inflammation *Remember you had a Toradol shot in the clinic today, which is similar to Motrin *Not additional anti-inflammatory like motrin, aleve, advil with the above amount of ibuprofen. You can still take Tylenol every 4 hours as needed if you need something else for pain *Ice 20 minutes every 2 hours for the first 48 hours after the initial injury followed by moist heat every 20 minutes 3-4 times a day to affected area *Muscle relaxer every 12 hours as needed for muscle spasms but remember, it WILL cause drowsiness You cannot take it and drive, operate machinery or care for small children. *Keep this area active, no movement leads to more stiffness, However take it easy and avoid heavy lifting pushing or pulling *Follow up with you family doctor if no improvement for further treatment Prescriptions: methocarbamoL [Methocarbamol] 750 mg PO BID PRN #10 tab PRN Reason: Muscle Spasm Transmission Status: Pending to [facility] Referrals: Vibha Barragan MD [Primary Care Provider] - As needed Forms: Work/School Release Time of Disposition: 21:09 Medical Decision Making - Devante Inquiry Pt receiving controlled substance: No Devante was queried for this patient: No Vital Signs: 09/15/21 19:31 Temperature 98.2 F Temperature Source Oral Pulse Rate [Left] 78 Respiratory Rate 19 Blood Pressure [Right Arm] 130/76 Blood Pressure Mean [Right Arm] 94 02 Sat by Pulse Oximetry 99 Orders (Tests/Meds): ED MEDICATIONS Discontinued Medications Generic Name Dose Route Start Last Admin Trade Name Freq PRN Reason Stop Dose Admin Ketorolac Tromethamine 60 mg 09/15/21 20:48 09/15/21 20:49 Ketorolac 60mg/2ml Vial IM 09/15/21 20:49 60 mg ONCE ONE Administration - Radiology Data #1 Image(s): T-Spine Image Reviewed: Yes I have reviewed radiologist's interpretation IMPRESSION: 1. Densely calcified lymph nodes are identified in the left hilar and apparently the carinal and right infrahilar chains. 2. No evidence of acute fracture disruption or dislocation. 3. Mild rotoscoliosis. Medical Decision Narrative: Discussed xray finding with patient and she agreed to follow up with PCP for further testing [facility] [place] - General Stated complaint: neck, back L shoulder pain Time Seen by Provider: 09/15/21 19:41 Mode of Arrival: Ambulatory Source of Information: Patient Limitations: No Limitations Description of Symptoms (Recalled from Triage Doc. by RN): pt c/o pain right below the base of her neck that radiates up her neck and down to her R shoulder. pt denies any injury. HEENT Symptoms (Recalled from RN notes): No Resp Symptoms (Recalled from RN notes): No Skin Symptoms (Recalled from RN notes): No MS Symptoms (Recalled from RN notes): Yes Functional Status (Recalled from RN notes): wnl - History of Present Illness Provider Complaint: Patient states that she woke up Wed having pain between her shoulderblades with tightness and pain in her right shoulder area that radiates up her shoulder into the base of her neck and hurts when she moves States feels tight and hurts when she turns her head or moves her right shoulder so tonight when she was still having pain and spasms she came in to get checked out - Related Data Home Medications Medication Instructions Recorded Confirmed Cetirizine HCl [Zyrtec] 10 mg PO HS 10/09/17 03/19/20 Previous Rx's Medication Instructions Recorded methocarbamoL [Methocarbamol] 750 mg PO BID PRN #10 tab 09/15/21 Allergies Allergy/AdvReac Type Severity Reaction Status Date / Time Sulfa (Sulfonamide Allergy Intermediate I-HIVES Verified 11/19/17 13:24 Antibiotics) steroid shot AdvReac passed out Uncoded 11/19/17 13:
[2021-09-15 21:19] VITALS: BP 130/76; PULSE 78; RESP 19; TEMP 36.8
== END 2021-09-15 21:20 | disposition home or self-care (01) ==
PROVIDERS: Emergency Provider Nurse Practitioner; PCP Family Medicine
DX: M62.830 Muscle spasm of back (principal); M25.511 Pain in right shoulder; M54.2 Cervicalgia; F17.210 Nicotine dependence, cigarettes, uncomplicated; Z79.899 Other long term (current) drug therapy; Z88.2 Allergy status to sulfonamides; Z88.8 Allergy status to other drugs, medicaments and biological substances; Z86.11 Personal history of tuberculosis; Z82.49 Family history of ischemic heart disease and other diseases of the circulatory system; Z80.9 Family history of malignant neoplasm, unspecified; Z83.3 Family history of diabetes mellitus; Z83.1 Family history of other infectious and parasitic diseases
CPT/HCPCS: 72072; 96372; 99213; G0463

== ENCOUNTER → 2021-09-27 12:46 | Outpatient (CLI) | payer BC, SELFPAY ==
--- NOTE | 2021-09-27 12:55 | CT_ITS ---
FINAL REPORT CLINICAL HISTORY: CALCIFIED LYMPH NODES,ABN CXR FINDINGS: Axial images of the chest was performed with and without contrast by computed tomography. Sagittal and coronal reformatted images were obtained and reviewed. This study was performed with techniques to keep radiation doses as low as reasonably achievable (ALARA). Individualized dose reduction techniques using automated exposure control or adjustment of mA and/or kV according to the patient's size were employed. There are bulky calcified mediastinal and left hilar lymph nodes. The heart is normal in size. There is no pleural or pericardial effusion. There is a calcified granuloma in the right lower lobe. The lungs are otherwise clear. Limited images of the upper abdomen are unremarkable. IMPRESSION: Calcified mediastinal and left hilar lymph nodes consistent with prior mycobacterial/fungal disease. Reviewed, Interpreted and Dictated by Preston Villalta III, MD Transcribed by Chrissy Villa Authenticated by Pretson Villalta III, MD on 09/27/2021 02:12:[address] [facility]
== END ==
LOC: RAD 12:47
PROVIDERS: PCP Family Medicine; Visit Provider Nurse Practitioner Family
DX: I89.8 Other specified noninfective disorders of lymphatic vessels and lymph nodes (principal); R93.89 Abnormal findings on diagnostic imaging of other specified body structures
CPT/HCPCS: 71270; Q9967

== ENCOUNTER → 2022-01-13 15:31 | Outpatient (CLI) | payer BC, SELFPAY ==
[2022-01-13 16:10] LABS: Basophils # 0.1 K/mm3 (0-0.2); Basophils % 1.7 % (0.1-2.0); Eosinophils # 0.2 K/mm3 (0.0-0.4); Eosinophils % 2.3 % (0.1-12.0); Hematocrit 40.1 % (37.0-47.0); Hemoglobin 13.2 g/dL (12.2-16.2); Lymphocytes # 2.9 K/mm3 (0.7-4.5); Lymphocytes % 33.6 % (10-50); Mean Corpuscular HGB Conc 32.8 g/dL (31.8-35.4); Mean Corpuscular Hemoglobin 30.7 pg (27.0-31.2); Mean Corpuscular Volume 93.6 fl (81-99); Mean Platelet Volume 8.6 fl (7.4-10.4); Monocytes # 0.4 K/mm3 (0.1-1.0); Monocytes % 4.2 % (1.7-9.3); Neutrophils % 58.2 % (37.0-80.0); Platelet Count 249 K/mm3 (142-424); Red Blood Count 4.28 M/mm3 (4.20-5.40); Red Cell Distribution Width 13.3 % (11.5-17.5); White Blood Count 8.5 K/mm3 (4.8-10.8)
[2022-01-13 17:24] LABS: Chloride 106 mmol/L (98-107); Potassium 4.4 mmoL/L (3.5-5.1); Sodium 141 mmol/L (136-145)
[2022-01-13 17:26] LABS: Alanine Aminotransferase 20 U/L (12-78); Amylase 67 U/L (30-110); Aspartate Amino Transferase 30 U/L (14-36); Blood Urea Nitrogen 9 mg/dl (7-17); Estimated Glomerular Filt Rate 94 ml/min (>60); GFR (African American) 113 ML/MIN (>60)
[2022-01-13 17:27] LABS: Albumin Level 4.4 g/dl (3.5-5.0); Albumin/Globulin Ratio 1.9 (1.1-1.8); Alkaline Phosphatase 64 U/L (38-126); Anion Gap 10.4 mEq/L (5-15); Calcium 9.2 mg/dl (8.4-10.2); Carbon Dioxide 29 mmol/L (22.0-30.0); Globulin 2.3 g/dL (1.3-3.2); Glucose 92 mg/dl (74-100); Lipase 157 U/L (23-300); Total Protein,Serum 6.7 g/dl (6.3-8.2)
[2022-01-13 17:30] LABS: Bilirubin,Total < 0.1 mg/dl (0.2-1.3)
== END ==
PROVIDERS: PCP Nurse Practitioner Family; Visit Provider Nurse Practitioner Family
DX: R10.10 Upper abdominal pain, unspecified (principal); R13.19 Other dysphagia; R19.5 Other fecal abnormalities; L40.9 Psoriasis, unspecified
CPT/HCPCS: 36415; 80053; 82150; 83690; 85025

== ENCOUNTER → 2022-01-24 14:36 | Outpatient (POV) | payer BC, SELFPAY | PROVIDERS: Visit Provider Dermatology | DX: Z00.00 Encounter for general adult medical examination without abnormal findings (principal) ==

== ENCOUNTER → 2022-03-21 16:01 | Outpatient (CLI) | payer BC, SELFPAY ==
[2022-03-21 17:04] LABS: Uric Acid 3.1 mg/dl (2.5-6.2)
[2022-03-21 17:09] LABS: C-Reactive Protein 1.9 mg/L (0-4)
[2022-03-21 17:17] LABS: Erythrocyte Sedimentation Rate 14 mm/hr (0-20)
[2022-03-23 09:23] LABS: RA Latex Turbid. <10.0 IU/mL (<14.0)
[2022-03-24 10:03] LABS: Antinuclear Antibodies, IFA Negative (.)
== END ==
PROVIDERS: PCP Nurse Practitioner Family; Visit Provider Nurse Practitioner Family
DX: M79.10 Myalgia, unspecified site (principal); M25.50 Pain in unspecified joint; L40.9 Psoriasis, unspecified
CPT/HCPCS: 36415; 84550; 85651; 86038; 86140; 86431; 86788; 86789

== ENCOUNTER → 2022-04-01 08:06 | Outpatient (CLI) | payer BC, SELFPAY ==
--- NOTE | 2022-04-01 08:16 | MR_ITS ---
FINAL REPORT CLINICAL HISTORY: JOINT PAIN, PAIN IN L SHOULDER. PAIN WTH LAYING DOWN. LROM. COMPARISON: 12/02/2020 FINDINGS: Multiplanar MR imaging of the left shoulder was performed without contrast. There is a partial thickness, articular surface tear of the supraspinatus tendon measuring greater than 50%. The infraspinatus tendon is intact. There is mild a.c. joint arthrosis with mild outlet narrowing. A moderate amount of fluid is present in the subacromial/subdeltoid bursa. No labral tear is identified. The long head of the biceps tendon is intact. There is abnormal signal of the anterior aspect of the greater tuberosity likely representing a small, nondisplaced fracture with adjacent bone marrow edema. However, focal osteonecrosis could have a similar appearance. No significant glenohumeral joint effusion is identified. The musculature is intact. There is no evidence of soft tissue mass or cyst. IMPRESSION: Partial thickness, articular surface tear of the supraspinatus tendon, greater than 50%. Probable, small, nondisplaced fracture of the greater tuberosity with adjacent bone marrow edema. However, focal osteonecrosis could have a similar appearance. Mild a.c. joint arthrosis with moderate subacromial/subdeltoid bursitis. Reviewed, Interpreted and Dictated by Preston Villalta III, MD Transcribed by Inessa Middleton Authenticated and [facility]
== END ==
LOC: RAD 08:07
PROVIDERS: PCP Nurse Practitioner Family; Visit Provider Nurse Practitioner Family
DX: M25.512 Pain in left shoulder (principal)
CPT/HCPCS: 73221

== ENCOUNTER 2023-01-20 12:23 | Emergency (ER) | payer OTHER, SELFPAY ==
--- NOTE | 2023-01-20 12:39 | EXP.UTC ---
Discharge Plan Disposition Patient Disposition: Home, Self-Care Condition: Good Prescriptions Prescriptions: New azithromycin [Zithromax] 250 mg tablet 250 mg PO UD DOSE PK Qty: 6 0RF Rx Instructions: Take two (2) tablets today, then one (1) tablet days #2 thru #5 guaifenesin [Mucinex] 600 mg tablet extended release 12hr 600 - 1,200 mg PO BIDP PRN (Reason: Congestion) Qty: 30 0RF No Action Otezla 30 mg tablet 30 mg PO DAILY ondansetron HCl 4 mg tablet 4 mg PO tyrosine 500 mg tablet 500 mg PO BID Rx Instructions: administer on an empty stomach, 1 hour before or 2-3 hours after meals Referrals Follow up/Referrals: Avis Jain APRN [Primary Care Provider] - See instructions Activity Restrictions/Add. Instructions Additional Instructions/Restrictions: Drink plenty of fluids. Take tylenol or ibuprofen for pain or fever. Take the medications as directed. Follow up with your regular doctor. GO TO THE ER FOR ANY WORSENING SYMPTOMS Clinical Impressions Clinical Impression: Sinusitis, Acute viral syndrome Instructions Patient Instructions: DI for Sinusitis, DI for Viral Syndrome Discharge ED Provider: Jl Willis [facility] [place] General Stated complaint: sore throat Time Seen by Provider: 01/20/23 12:39 History of Present Illness Provider Complaint: She states that for the past 3 days she has had cough, chest and sinus congestion. Related Data Home Medications Medication Instructions Recorded Confirmed apremilast 30 mg tablet (Otezla) 30 mg PO DAILY . 07/24/22 01/20/23 ondansetron HCl 4 mg tablet 4 mg PO 07/24/22 07/24/22 tyrosine 500 mg tablet 500 mg PO BID 07/24/22 07/24/22 Previous Rx's Medication Instructions Recorded azithromycin 250 mg tablet 250 mg PO UD DOSE PK #6 tabs 01/20/23 (Zithromax) guaifenesin 600 mg tablet, 600 - 1,200 mg PO BIDP PRN 01/20/23 extended release 12 hr (Mucinex) Congestion #30 tabs Allergies Allergy/AdvReac Type Severity Reaction Status Date / Time Sulfa (Sulfonamide Allergy Intermediate I-HIVES Verified 01/20/23 12:58 Antibiotics) steroid shot AdvReac Unknown passed out Uncoded 01/20/23 12:59 [facility] Disclaimer: The information contained in this section may have been updated after the patient was seen, as this information can be updated by other users. Surgical History Hx of hysterectomy Hx of tubal ligation Family History Other Cancer Social History Smoking Status: Current every day smoker tobacco type: cigarettes packs per day: 1 second hand exposure: Yes alcohol intake: current substance use type: denies use current occupational status: other Travel in the last 8 weeks: None household members: spouse and children housing: house current occupation: [employer] current occupational exposures/hazards: No caffeine: Yes ROS Obtained: Yes All systems reviewed & no additional complaints except as documented Constitutional Constitutional: Reports chills and Reports fever(s) Eyes Eyes: Denies eye discharge ENT Ears, Nose, Mouth, and Throat: Reports as per HPI Cardiovascular Cardiovascular: Denies chest pain Respiratory Respiratory: Denies chest congestion and Reports cough Gastrointestinal Gastrointestingal: Reports nausea; Denies abdominal pain, constipation, cramping, diarrhea or vomiting Musculoskeletal Musculoskeletal: Denies arthralgias Integumentary/Breasts Skin/Breast: Denies rash Neurologic Neurologic: Denies paresthesias Physical Exam General General appearance: alert and in no apparent distress Eye Eye exam: Present normal appearance, PERRL and EOMI ENT ENT exam: Present mucous membranes moist and normal external ear exam Expanded ENT Exam 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
[2023-01-20 12:40] VITALS: BP 115/77; PULSE 76; RESP 18; TEMP 37; O2SAT 98; BMI 28.3
[2023-01-20 12:59] LABS: UTC Strep Screen (Rapid) Negative (Negative)
[2023-01-20 13:38] VITALS: BP 115/77; PULSE 76; RESP 18; TEMP 37; O2SAT 98
== END 2023-01-20 13:38 | disposition home or self-care (01) ==
PROVIDERS: Emergency Provider Nurse Practitioner Family; PCP Nurse Practitioner Family
DX: J01.90 Acute sinusitis, unspecified (principal); B34.9 Viral infection, unspecified; F17.210 Nicotine dependence, cigarettes, uncomplicated
CPT/HCPCS: 87880; 99212; 99214; G0463

== ENCOUNTER 2023-03-18 15:48 | Emergency (ER) | payer OTHER, SELFPAY ==
--- NOTE | 2023-03-18 15:59 | EXP.UTC ---
Discharge Plan Disposition Patient Disposition: Home, Self-Care Condition: Good Prescriptions Prescriptions: New ondansetron 4 mg Tablet,Disintegrating 4 mg PO Q8H PRN (Reason: Nausea) Qty: 12 0RF No Action Otezla 30 mg tablet 30 mg PO DAILY cetirizine [Zyrtec] 10 mg Tablet,Chewable 10 mg PO DAILY Referrals Follow up/Referrals: Avis Jain APRN [Primary Care Provider] - See instructions Activity Restrictions/Add. Instructions Additional Instructions/Restrictions: Drink plenty of fluids. Take tylenol for pain or fever. Follow up with your regular doctor. GO TO THE ER FOR ANY WORSENING SYMPTOMS Clinical Impressions Clinical Impression: Acute viral syndrome Stand Alone Forms Stand Alone Forms: Work/School Release Instructions Patient Instructions: DI for Viral Syndrome Discharge ED Provider: Jl Willis [facility] General Stated complaint: THOMAS, Backpain Time Seen by Provider: 03/18/23 15:59 History of Present Illness Provider Complaint: She states that she has had body aches, chills, fever, head ache and malaise since yesterday. Related Data Home Medications Medication Instructions Recorded Confirmed apremilast 30 mg tablet (Otezla) 30 mg PO DAILY . 07/24/22 03/18/23 cetirizine 10 mg chewable tablet 10 mg PO DAILY allergies 03/18/23 03/18/23 (Zyrtec) Previous Rx's Medication Instructions Recorded ondansetron 4 mg disintegrating 4 mg PO Q8H PRN Nausea #12 tabs 03/18/23 tablet Allergies Allergy/AdvReac Type Severity Reaction Status Date / Time Sulfa (Sulfonamide Allergy Intermediate I-HIVES Verified 03/18/23 16:22 Antibiotics) steroid shot AdvReac Unknown passed out Uncoded 03/18/23 16:23 [facility] Disclaimer: The information contained in this section may have been updated after the patient was seen, as this information can be updated by other users. Surgical History Hx of hysterectomy Hx of tubal ligation Family History Other Cancer Social History Smoking Status: Current every day smoker tobacco type: cigarettes packs per day: 1 second hand exposure: Yes alcohol intake: current substance use type: denies use current occupational status: other Travel in the last 8 weeks: None household members: spouse and children housing: house current occupation: [employer] current occupational exposures/hazards: No caffeine: Yes ROS Obtained: Yes All systems reviewed & no additional complaints except as documented Constitutional Constitutional: Reports chills and Reports fever(s) Eyes Eyes: Denies eye discharge ENT Ears, Nose, Mouth, and Throat: Reports as per HPI Cardiovascular Cardiovascular: Denies chest pain Respiratory Respiratory: Denies chest congestion and Reports cough Gastrointestinal Gastrointestingal: Reports nausea; Denies abdominal pain, constipation, cramping, diarrhea or vomiting Musculoskeletal Musculoskeletal: Denies arthralgias Integumentary/Breasts Skin/Breast: Denies rash Neurologic Neurologic: Denies paresthesias Physical Exam General General appearance: alert and in no apparent distress Head Head exam: atraumatic, normocephalic and normal inspection Eye Eye exam: Present normal appearance, PERRL and EOMI ENT ENT exam: Present normal exam, normal oropharynx, mucous membranes moist, TM's normal bilaterally and normal external ear exam Neck Neck exam: Present normal inspection, full ROM and trachea midline; Absent meningismus or lymphadenopathy Chest Chest inspection: Present normal inspection and symmetric chest wall rise; Absent tenderness Respiratory Respiratory exam: Present normal lung sounds bilaterally; Absent respiratory distress Cardiovascular Cardiovascular exam: Present regular rate and normal rhythm; Absent JV
[2023-03-18 16:10] VITALS: BP 116/47; PULSE 87; RESP 18; TEMP 36.7; O2SAT 99; BMI 27.3
[2023-03-18 16:17] LABS: UTC Influenza A Antigen Negative (Negative); UTC Influenza B Antigen Negative (Negative)
[2023-03-18 16:18] LABS: Apearance,Urine Clear (Clear); Bilirubin,Urine Negative (Negative); Blood, Urine Negative (Negative); Color,Urine Yellow (Yellow); Glucose,Urine (UA) Negative (Negative); Ketones,Urine Negative (Negative); Protein,Urine Negative (Negative); UTC Leukocyte Esterase,Urine Negative (Negative); UTC Nitrate,Urine Negative (Negative); Urobilinogen,Urine 0.2 EU/dl (0.2)
[2023-03-18 16:56] LABS: UTC Strep Screen (Rapid) Negative (Negative)
[2023-03-18 17:12] VITALS: BP 116/47; PULSE 87; RESP 18; TEMP 36.7; O2SAT 99
[2023-03-18 17:13] LABS: Adenovirus,PCR Not Detected (NotDetected); Coronavirus 19, PCR Not Detected (NotDetected); Coronavirus 229E Not Detected (NotDetected); Coronavirus NL63 Not Detected (NotDetected); Coronavirus OC43 Not Detected (NotDetected); Coronovirus HKU1,PCR Not Detected (NotDetected); Human Metapneumovirus Not Detected (NotDetected); Influenza A, PCR Not Detected (NotDetected); Influenza AH1, 2009 Not Detected (NotDetected); Influenza AH1, PCR Not Detected (NotDetected); Influenza AH3,PCR Not Detected (NotDetected); Influenza B, PCR Not Detected (NotDetected); Parainfluenza 1, PCR Not Detected (NotDetected); Parainfluenza 2, PCR Not Detected (NotDetected); Parainfluenza 3, PCR Not Detected (NotDetected); Parainfluenza 4, PCR Not Detected (NotDetected); Rhinovirus/Enterovirus Not Detected (NotDetected)
[2023-03-18 18:54] LABS: Respiratory Syncytial Virus Detected (NotDetected)
== END 2023-03-18 17:12 | disposition home or self-care (01) ==
PROVIDERS: Emergency Provider Nurse Practitioner Family; PCP Nurse Practitioner Family
DX: R51.9 Headache, unspecified (principal); R50.9 Fever, unspecified; R53.81 Other malaise; M54.9 Dorsalgia, unspecified; R05.9 Cough, unspecified; R11.0 Nausea; B34.9 Viral infection, unspecified; F17.210 Nicotine dependence, cigarettes, uncomplicated
CPT/HCPCS: 81003; 87632; 87635; 87804; 87880; 99212; 99214; G0463

== ENCOUNTER 2023-05-12 12:57 | Emergency (ER) | payer OTHER, SELFPAY ==
[2023-05-12 13:13] VITALS: BP 113/74; PULSE 80; RESP 18; TEMP 37.3; O2SAT 100; BMI 27.1
--- NOTE | 2023-05-12 13:26 | ED_ITS ---
Discharge Plan Disposition Patient Disposition: Home, Self-Care Condition: Good Prescriptions Prescriptions: New iwpzoisjaszfgug-ulazhaepn-IM [Bromfed DM] 2-30-10 mg/5 mL syrup 10 ml PO Q4-6H PRN (Reason: cold symptoms) Qty: 200 0RF methylprednisolone [Medrol (Nigel)] 4 mg tablets,dose pack See Rx Instructions .ROUTE .COMPLEX 6 Days Qty: 21 0RF Rx Instructions: 4 mg orally ;Medrol dose taper nigel cefdinir 300 mg capsule 300 mg PO Q12H Qty: 20 0RF No Action albuterol sulfate 90 mcg/actuation HFA aerosol inhaler 2 puff inhalation Q4-6H PRN (Reason: shortness of breath or wheezing) 30 Days Qty: 8.5 0RF Otezla 30 mg tablet 30 mg PO BID cetirizine [Zyrtec] 10 mg Tablet,Chewable 10 mg PO DAILY Referrals Follow up/Referrals: Avis Jain APRN [Primary Care Provider] - See instructions Activity Restrictions/Add. Instructions Additional Instructions/Restrictions: Go to ER for chest pain. Take medication as prescribed. Increase fluids and rest. Clinical Impressions Clinical Impression: Acute upper respiratory infection Instructions Patient Instructions: DI for Viral Upper Respiratory Infection -- Adult Discharge ED Provider: Annetta Miller [facility] General Stated complaint: congestion body ache diarrhea perera vomiting st Mode of Arrival: Ambulatory Source of Information: Patient Limitations: No Limitations Time Seen by Provider: 05/12/23 13:16 Description of Symptoms (Recalled from Triage Doc. by RN): Pt's symptoms are body aches, fever, bilateral ear pain, neck pain, vomiting, and diarrhea. HEENT Symptoms (Recalled from RN notes): Yes Resp Symptoms (Recalled from RN notes): No Skin Symptoms (Recalled from RN notes): No MS Symptoms (Recalled from RN notes): No Functional Status (Recalled from RN notes): n/a History of Present Illness Provider Complaint: Pt relates that she got drunk on and started getting sick the next day. She reports that she has had sinus pressure and pain, facial swelling, fever, cough, vomiting, diarrhea, and bilateral ear pain. She reports that she has been taking her daughters left over Amoxicillin for the last 5 days. Pt reports that she is coughing up green phlegm. Related Data Home Medications Medication Instructions Recorded Confirmed cetirizine 10 mg chewable tablet 10 mg PO DAILY allergies 03/18/23 05/12/23 (Zyrtec) apremilast 30 mg tablet (Otezla) 30 mg PO BID . 03/19/23 05/12/23 Previous Rx's Medication Instructions Recorded albuterol sulfate 90 mcg/actuation 2 puff inhalation Q4-6H PRN 03/19/23 aerosol inhaler shortness of breath or wheezing 30 days #8.5 grams ctbpbukrhigqssa-piycgtsoxngxtxe-WT 10 ml PO Q4-6H PRN cold symptoms 05/12/23 2 mg-30 mg-10 mg/5 mL oral syrup #200 mL (Bromfed DM) cefdinir 300 mg capsule 300 mg PO Q12H #20 caps 05/12/23 methylprednisolone 4 mg tablets in See Rx Instructions .Route 05/12/23 a dose pack (Medrol (Nigel)) .COMPLEX 6 days #21 tabs Allergies Allergy/AdvReac Type Severity Reaction Status Date / Time Sulfa (Sulfonamide Allergy Intermediate I-HIVES Verified 05/12/23 13:19 Antibiotics) steroid shot AdvReac Unknown passed out Uncoded 03/27/23 08:24 Worker's Comp Is this a Worker's Comp case?: No [facility] Disclaimer: The information contained in this section may have been updated after the patient was seen, as this information can be updated by other users. Surgical History Hx of hysterectomy Hx of tubal ligation Family History Other Cancer Social History Smoking Status: Current every day smoker tobacco type: cigarettes packs per day: 1 second hand exposure: Yes alcohol intake: current substance use type: denies use current occupational status: other Travel in the last 8 weeks: None household members: spouse and children housing: house current occupation: [employer] current occupational exposures/hazards: No caffeine: Yes ROS Obtained: Yes All systems reviewed & no additional complaints except as documented Constitutional Constitutional: Reports system reviewed and no additional complaints, except as documented, Reports body ache, Reports fatigue, Reports fever(s) and Reports malaise Eyes Eyes: Reports system reviewed and no additional complaints, except as documented ENT Ears, Nose, Mouth, and Throat: Reports system reviewed and no additional complaints, except as documented, Reports otalgia, Reports facial pain, Reports nasal congestion, Reports nasal discharge, Reports sinus pain and Reports sinus pressure Cardiovascular Cardiovascular: Reports system reviewed and no additional complaints, except as documented Respiratory Respiratory: Reports system reviewed and no additional complaints, except as documented, Reports change in phlegm color and Reports pain with cough Gastrointestinal Gastrointestingal: Reports system reviewed and no additional complaints, except as documented, diarrhea, nausea and vomiting Genitourinary Female Genitourinary: Reports system reviewed and no additional complaints, except as documented Musculoskeletal Musculoskeletal: Reports system reviewed and no additional complaints, except as documented Integumentary/Breasts Skin/Breast: Reports system reviewed and no additional complaints, except as documented Neurologic Neurologic: Reports system reviewed and no additional complaints, except as documented Endocrine Endocrine: Reports system reviewed and no additional complaints, except as documented and Reports fatigue Hematologic/Lymphatic Henatologic/Lymphatic: Reports system reviewed and no additional complaints, except as documented Allergic/Immunologic Allergic/Immunologic: Reports system reviewed and no additional complaints, except as documented Physical Exam General General appearance: alert Comment: ill appearing Head Head exam: atraumatic and normocephalic Eye Eye exam: Present normal appearance Expanded ENT Exam External ear exam: Present normal external inspection TM/Canal exam: Bilateral TM: effusion Nose exam: Present sinus tenderness (with obvious swelling noted) Nasal speculum exam: Bilateral: other (clear drainage) Mouth exam: Present normal external inspection Teeth exam: Present normal inspection Throat exam: Present normal inspection Neck Neck exam: Present tenderness and lymphadenopathy Chest Chest inspection: Present normal inspection and symmetric chest wall rise Respiratory Respiratory exam: Present normal lung sounds bilaterally Cardiovascular Cardiovascular exam: Present regular rate and normal rhythm Abdominal Exam Abdominal exam: Present soft and normal bowel sounds Extremities Exam Extremities exam: Present normal inspection Back Exam Back exam: Present normal inspection Neurological Exam Neurological exam: Present alert and oriented X3 Psychiatric Psychiatric exam: Present normal affect and normal mood Skin Skin exam: Present warm, dry and intact Lymphatic Lymphatic Findings: no adenopathy Medical Decision Making Devante Inquiry Pt receiving controlled substance: No Devante was queried for this patient: No Vital Signs: 05/12/23 13:13 Temperature 99.1 F Temperature Source Oral Pulse Rate [Right Radial] 80 Respiratory Rate 18 Blood Pressure [Right Arm] 113/74 Blood Pressure Mean [Right Arm] 87 Blood Pressure Source [Right Arm] Automatic Cuff Blood Pressure Position [Right Arm] Sitting 02 Sat by Pulse Oximetry 100 Oxygen Delivery Method Room Air Lab Data Lab results reviewed: Yes I reviewed the patient's lab results. Medical Decision Narrative: Talked with the patient at length concerning chest pain. Advised to go to ER for chest pain. Pt relates that she has an appointment with her PCP on Sunday and will mention the chest pain to her.
[2023-05-12 13:30] LABS: UTC Influenza A Antigen Negative (Negative); UTC Influenza B Antigen Negative (Negative)
[2023-05-12 13:45] VITALS: BP 113/74; PULSE 80; RESP 18; TEMP 37.3; O2SAT 100
== END 2023-05-12 13:45 | disposition home or self-care (01) ==
PROVIDERS: Emergency Provider Nurse Practitioner Family; PCP Nurse Practitioner Family
DX: R07.1 Chest pain on breathing (principal); J06.9 Acute upper respiratory infection, unspecified; R51.9 Headache, unspecified; R50.9 Fever, unspecified; R11.2 Nausea with vomiting, unspecified; R19.7 Diarrhea, unspecified; R09.81 Nasal congestion; R07.0 Pain in throat; H92.03 Otalgia, bilateral; F17.210 Nicotine dependence, cigarettes, uncomplicated; B34.9 Viral infection, unspecified
CPT/HCPCS: 87804; 99212; 99214; G0463

== ENCOUNTER 2023-05-14 14:53 | Outpatient (CLI) | payer OTHER, SELFPAY ==
--- NOTE | 2023-05-14 14:59 | XR_ITS ---
FINAL REPORT CLINICAL HISTORY: left sided chest pain COMPARISON: 01/18/2019 FINDINGS: Two views of the chest were obtained. The heart size and pulmonary vascularity are within normal limits. The mediastinum is normal. No acute pulmonary abnormality is identified. There is no pneumothorax. The bony thorax is intact. IMPRESSION: No active cardiopulmonary disease. Reviewed, Interpreted and Dictated by Preston Villalta III, MD Transcribed by Andressa Diego Authenticated and [facility]
[2023-05-14 17:21] LABS: Basophils % 0.3 % (0.1-2.0); Eosinophils % 0.1 % (0.1-12.0); Hematocrit 43.2 % (37.0-47.0); Hemoglobin 14.3 g/dL (12.2-16.2); Lymphocytes # 1.3 K/mm3 (0.7-4.5); Lymphocytes % 20.6 % (10-50); Mean Corpuscular HGB Conc 33.1 g/dL (31.8-35.4); Mean Corpuscular Hemoglobin 30.5 pg (27.0-31.2); Mean Corpuscular Volume 91.9 fl (81-99); Mean Platelet Volume 9.5 fl (7.4-10.4); Monocytes # 0.2 K/mm3 (0.1-1.0); Monocytes % 3.8 % (1.7-9.3); Neutrophils # 4.9 K/mm3 (1.8-7.8); Neutrophils % 75.3 % (37.0-80.0); Platelet Count 236 K/mm3 (142-424); White Blood Count 6.5 K/mm3 (4.8-10.8)
[2023-05-14 18:24] LABS: Chloride 102 mmol/L (98-107); Sodium 138 mmol/L (136-145)
[2023-05-14 18:25] LABS: Potassium 4.3 mmoL/L (3.5-5.1)
[2023-05-14 18:27] LABS: Alanine Aminotransferase 101 U/L (12-78); Albumin Level 4.5 g/dl (3.5-5.0); Alkaline Phosphatase 71 U/L (38-126); Anion Gap 14.3 mEq/L (5-15); Aspartate Amino Transferase 92 U/L (14-36); Bilirubin,Total 0.4 mg/dl (0.2-1.3); Blood Urea Nitrogen 4 mg/dl (7-17); Carbon Dioxide 26 mmol/L (22.0-30.0); Cholesterol 138 mg/dl (140-200); Estimated Glomerular Filt Rate 137 ml/min (>60); GFR (African American) 165 ML/MIN (>60); Triglycerides 163 mg/dl (30-150); VLDL Cholesterol 33 mg/dL (0-40)
[2023-05-14 18:28] LABS: Albumin/Globulin Ratio 1.7 (1.1-1.8); Calcium 8.8 mg/dl (8.4-10.2); Chol/HDL Ratio 3.6 (1-3.5); Globulin 2.6 g/dL (1.3-3.2); Glucose 102 mg/dl (74-100); HDL Cholesterol 38 mg/dl (40-60); Total Protein,Serum 7.1 g/dl (6.3-8.2)
[2023-05-14 18:38] LABS: Direct LDL Cholesterol 71.75 mg/dL (100-129)
[2023-05-14 18:41] LABS: C-Reactive Protein 0.7 mg/L (0-4); Troponin I < 0.01 ng/ml (0.00-0.034)
== END 2023-05-14 23:59 ==
LOC: RAD 14:55
PROVIDERS: PCP Nurse Practitioner Family; Visit Provider Nurse Practitioner Family
DX: R07.9 Chest pain, unspecified (principal); D72.829 Elevated white blood cell count, unspecified; R74.8 Abnormal levels of other serum enzymes
CPT/HCPCS: 71046; 80053; 80061; 84484; 85025; 86140

== ENCOUNTER 2023-05-24 07:43 | Outpatient (CLI) | payer OTHER, SELFPAY ==
--- NOTE | 2023-05-24 07:43 | US_ITS ---
FINAL REPORT TECHNIQUE: Multiple transverse and longitudinal images CLINICAL HISTORY: Elevated liver enzymes COMPARISON: None FINDINGS: The gallbladder shows no wall thickening, distention or stone disease. However, there is sludge present in the gallbladder. The common bile duct is mildly enlarged, measuring up to 8 mm. No fluid collections are seen. Limited portions of the right liver are unremarkable. Limited portions of the right kidney are unremarkable. IMPRESSION: No gallstones are seen, however sludge is present in the gallbladder and the common bile duct is mildly enlarged. Reviewed, Interpreted and Dictated by Nitesh Davison MD Transcribed by Lashell Hay Authenticated and [facility]
== END 2023-05-24 23:59 ==
LOC: RAD 07:43
PROVIDERS: PCP Nurse Practitioner Family; Visit Provider Nurse Practitioner Family
DX: R74.8 Abnormal levels of other serum enzymes (principal)
CPT/HCPCS: 76705

== ENCOUNTER 2023-06-22 09:03 | Outpatient (CLI) | payer OTHER, SELFPAY ==
--- NOTE | 2023-06-22 09:04 | NM_ITS ---
FINAL REPORT CLINICAL HISTORY: elevated liver enzymes, gallbladder sludge 9:15 am 8.40 mci Tc choletec 1.5 mcg of cck no pain during cck COMPARISON: None FINDINGS: Sequential anterior projection images of the abdomen were obtained after the intravenous injection of 8.4 mCi technetium 99m Choletec. There is normal uptake of radiotracer by the liver. The bile ducts are visualized by 5 minutes. Gallbladder activity is seen by 15 minutes. Bowel activity is noted by 10 minutes. After 1 hour, 1.5 ?g of CCK was injected intravenously for calculation of gallbladder ejection fraction. The gallbladder ejection fraction is 85%, which is within normal limits. IMPRESSION: No evidence of cystic duct or bile duct obstruction. Normal gallbladder ejection fraction of 85%. Reviewed, Interpreted and Dictated by Nitesh Davison MD Transcribed by Lashell Hay Authenticated and [facility]
[2023-06-22] MEDS: ISOTOPE CHOLETECH;1 DOSE (UP TO 15 MCI) IV (13:06)
[2023-06-22] MEDS: SODIUM CHLORIDE 0.9% 10ML SYR (RAD ONLY) 10 ML IV (13:06)
[2023-06-22] MEDS: SINCALIDE 1.5 MCG in 0.9 % SODIUM CHLORIDE 50 ML 100 MCG IV (13:06)
== END 2023-06-22 23:59 ==
LOC: RAD 09:04
PROVIDERS: PCP Nurse Practitioner Family; Visit Provider Nurse Practitioner Family
DX: K82.8 Other specified diseases of gallbladder (principal); R74.8 Abnormal levels of other serum enzymes
CPT/HCPCS: 78227; A9537; J2805

== ENCOUNTER 2023-09-25 16:46 | Outpatient (CLI) | payer OTHER, SELFPAY ==
--- NOTE | 2023-09-25 16:49 | XR_ITS ---
PROCEDURE INFORMATION: Exam: XR Chest Exam date and time: 09/25/2023 4:50 PM Age: 38 years old Clinical indication: Screening exam; Pre-employment physical; Additional info: HX of tb TECHNIQUE: Imaging protocol: Radiologic exam of the chest. Views: 2 views. COMPARISON: CR XR CHEST 2V 05/14/2023 3:07 PM FINDINGS: Lungs: Clear lungs. Stable calcified left hilar lymph node. Pleural spaces: No pneumothorax. No sizable pleural effusion. Heart/Mediastinum: No cardiomegaly. Bones/joints: Unremarkable. IMPRESSION: Clear lungs.
== END 2023-09-25 23:59 | disposition home or self-care (01) ==
LOC: RAD 16:47
PROVIDERS: PCP Nurse Practitioner Family; Visit Provider Nurse Practitioner Family
DX: Z86.11 Personal history of tuberculosis (principal)
CPT/HCPCS: 71046

== ENCOUNTER 2024-04-21 20:04 | Emergency (ER) | payer OTHER, SELFPAY ==
[2024-04-21 20:05] VITALS: BP 135/74; PULSE 103; RESP 16; TEMP 37.2; O2SAT 99; BMI 27.9
--- NOTE | 2024-04-21 20:23 | HMH.EDGENADL ---
Discharge Plan Disposition Patient Disposition: Home, Self-Care Condition: Good Prescriptions Prescriptions: New fdrltyokvrgkdrr-uyolyirdg-XR [Bromfed DM] 2-30-10 mg/5 mL syrup 5 ml PO Q6H PRN (Reason: cold symptoms) Qty: 118 0RF ondansetron HCl 4 mg tablet 4 mg PO Q8H PRN (Reason: nausea and vomiting) 4 Days Qty: 12 0RF No Action hydroxychloroquine [Plaquenil] 200 mg tablet 200 mg PO DAILY prednisone 20 mg tablet 20 mg PO BID Qty: 14 0RF Rx Instructions: Take two tablets on days 1-4. Take one tablet daily on days 5-8. On days 9-12 take one half tablet. benzonatate 100 mg capsule 100 mg PO TID PRN (Reason: cough) Qty: 30 0RF Rx Instructions: May take 2 capsules(200mg) at a time if one does not provide relief. pseudoephedrine HCl 60 mg tablet 60 mg PO Q6H PRN (Reason: nasal congestion) Qty: 30 0RF Rx Instructions: DNExceed 4 doses/24h amoxicillin-pot clavulanate 875-125 mg tablet 1 tab PO Q12H Qty: 14 0RF cetirizine [Zyrtec] 10 mg Tablet,Chewable 10 mg PO DAILY Referrals Follow up/Referrals: Avis Jain APRN [Primary Care Provider] - See instructions Activity Restrictions/Add. Instructions Additional Instructions/Restrictions: You were evaluated in the emergency department today and diagnosed with COVID-19. 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 Take Tylenol and ibuprofen every 4-6 hours at home as needed for pain/fever. Follow-up closely with your primary care provider. Return to the emergency department for new or worsening symptoms. Clinical Impressions Clinical Impression: COVID-19 Stand Alone Forms Stand Alone Forms: Work/School Release Instructions Patient Instructions: DI for Viral Syndrome, DI for COVID-19 (Suspected or Confirmed ) Print Language Print Language: Ethiopian Discharge ED Provider: Kenzie Kirkpatrick General Adult HPI General Chief complaint: PAIN Stated complaint: congestion chills headache fever Time Seen by Provider: 04/21/24 20:17 Mode of Arrival: Ambulatory Source of Information: Patient Limitations: No Limitations Description of Symptoms (Recalled from ER Triage Doc. by RN): Pt presents to ED for fever, body aches, chills that started this morning around 7am. Pt states she took Theraflu at home but still feels bad. Pt is A&O*4 and is bedside. History of Present Illness HPI narrative: This patient is a 39-year-old female who denies significant past medical history presenting to the emergency department for evaluation with concern for fever, body aches, and chills that started around 7:00 this morning suddenly. She states that she took TheraFlu at home earlier this morning but still feels bad. She reports sore throat and cough as well but no significant abdominal pain, vomiting, changes in bowel movements, urinary symptoms, or other concerns. Related Data Home Medications ?Medication ?Instructions ?Recorded ?Confirmed cetirizine 10 mg chewable tablet 10 mg PO DAILY allergies 03/18/23 04/02/24 (Zyrtec) hydroxychloroquine 200 mg tablet 200 mg PO DAILY 12/14/23 04/02/24 (Plaquenil) Previous Rx's ?Medication ?Instructions ?Recorded amoxicillin 875 mg-potassium 1 tab PO Q12H #14 tabs 04/02/24 clavulanate 125 mg tablet benzonatate 100 mg capsule 100 mg PO TID PRN cough #30 caps 04/02/24 prednisone 20 mg tablet 20 mg PO BID #14 tabs 04/02/24 pseudoephedrine HCl 60 mg tablet 60 mg PO Q6H PRN nasal congestion 04/02/24 #30 tabs tsbxzsbtqjggytv-hszwhquorlxkklj-FX 5 ml PO Q6H PRN cold symptoms #118 04/21/24 2 mg-30 mg-10 mg/5 mL oral syrup mL (Bromfed DM) ondansetron HCl 4 mg tablet 4 mg PO Q8H PRN nausea and 04/21/24 vomiting 4 days #12 tabs Allergies Allergy/AdvReac Type Severity Reaction Status Date / Time Sulfa (Sulfonamide Allergy Intermediate I-HIVES Verified 04/02/24 15:36 Antibiotics) steroid shot AdvReac Unknown passed out Uncoded 04/02/24 15:36 PFSH PFSH Disclaimer: The information contained in this section may have been updated after the patient was seen, as this information can be updated by other users. Medical History Elevated white blood cell count Elevated liver enzymes Surgical History Hx of tubal ligation Hx of hysterectomy Family History Other Cancer Social History Smoking Status: Current every day smoker tobacco type: cigarettes packs per day: 1 second hand exposure: Yes alcohol intake: current alcohol intake frequency: holidays/special occasions only substance use type: denies use current occupational status: other Travel in the last 8 weeks: None household members: spouse and children housing: house current occupation: [employer] [place] current occupational exposures/hazards: No caffeine: Yes Have you lived/traveled outside US in past 30 days?: No Contact w/someone who lives/traveled outside US past 30 days?: No Exposure to someone with infectious disease in past 14 days?: No Do you have a fever (greater than 100.4 F or 38 C)?: Yes Have you tested positive for COVID-19: No Exposed to someone with COVID-19 in past 14 days?: No Do you have a sore throat?: No Do you have a cough?: No Do you have any weakness?: No Do you have any diarrhea?: No Are you experiencing any unusual bleeding?: No Do you have any muscle aches/pain?: No Do you have any abdominal pain?: No Are you experiencing loss of taste or smell?: No Other Medical History Have you received the Flu Vaccine for this season: No Have you received the Pneumonia Vaccine: No ROS Obtained: Yes All systems reviewed & no additional complaints except as documented Physical Exam General General appearance: alert and in no apparent distress Head Head exam: atraumatic and normocephalic Eye Eye exam: Present normal appearance, PERRL and EOMI ENT ENT exam: Present normal exam, normal oropharynx, mucous membranes moist and normal external ear exam Neck Neck exam: Present normal inspection, full ROM and trachea midline; Absent tenderness Chest Chest inspection: Present normal inspection and symmetric chest wall rise; Absent tenderness Respiratory Respiratory exam: Present normal lung sounds bilaterally; Absent respiratory distress, wheezes, stridor or accessory muscle use Cardiovascular Cardiovascular exam: Present normal rhythm and tachycardia Abdominal Exam Abdominal exam: Present soft; Absent distention, tenderness or guarding Extremities Exam Extremities exam: Present normal inspection, full ROM and normal capillary refill; Absent tenderness or edema Back Exam Back exam: Present normal inspection and full ROM; Absent tenderness Neurological Exam Neurological exam: Present alert, oriented X3, CN II-XII intact and normal gait; Absent motor sensory deficit Psychiatric Psychiatric exam: Present normal affect and normal mood Skin Skin exam: Present warm and dry Medical Decision Making Medical Records Medical records reviewed: Yes I reviewed the patient's medical records. Screening: Per USPSTF and CDC recommendations, given the prevalence of disease in our region, it is our hospital?s policy to screen for HIV and viral Hepatitis for all patients aged 18 and over and those with ongoing risk factors. Devante Inquiry Pt receiving controlled substance: No Vital Signs: 04/21/24 20:05 04/21/24 20:30 04/21/24 21:00 Temperature 99.0 F Temperature Source Oral Pulse Rate 93 H 92 H Pulse Rate [Left] 103 H Respiratory Rate 16 Blood Pressure 116/66 115/64 Blood Pressure [Right Arm] 135/74 Blood Pressure Mean [Right Arm] 94 02 Sat by Pulse Oximetry 99 96 97 Oxygen Delivery Method Room Air 04/21/24 21:30 04/21/24 22:06 Temperature 99 F Temperature Source Pulse Rate 73 71 Pulse Rate [Left] Respiratory Rate 18 Blood Pressure 113/71 113/71 Blood Pressure [Right Arm] Blood Pressure Mean [Right Arm] 02 Sat by Pulse Oximetry 95 Oxygen Delivery Method Room Air Lab Data Lab results reviewed: Yes I reviewed the patient's lab results. Lab Results 04/21/24 20:08: SARS-CoV-2 (PCR) Detected A, Influenza A Untype (PCR) Not detected, Influenza Type B (PCR) Not detected Orders (Tests/Meds): ED MEDICATIONS Discontinued Medications Generic Name Dose Route Start Last Admin Trade Name Freq PRN Reason Stop Dose Admin Acetaminophen 1,000 mg 04/21/24 20:22 04/21/24 20:46 Acetaminophen 1,000mg/100ml Vial IV 04/21/24 20:23 1,000 mg ONCE ONE Administration Lactated Ringer's 1,000 mls @ 999 mls/hr 04/21/24 20:22 04/21/24 20:46 Lactated Ringer's 1000 Ml Bag IV 04/21/24 21:22 999 mls/hr .Q1H1M ONE Administration Ketorolac Tromethamine 15 mg 04/21/24 20:22 04/21/24 20:46 Ketorolac 30mg/Ml Vial IV 04/21/24 20:23 15 mg ONCE ONE Administration Ondansetron HCl 4 mg 04/21/24 20:22 04/21/24 20:46 Ondansetron 4mg/2ml Vial IV 04/21/24 20:23 Not Given ONCE ONE ORDERS Category Date Time Status Rapid PCR Covid and Flu A/B Stat Lab 04/21/24 20:08 Completed Medical Decision Narrative: In summary, this patient is a 39-year-old female presenting to the Emergency Department for evaluation of fever, headache, cough, body aches.. Differential diagnoses considered include but are not limited to viral syndrome, pneumonia, dehydration, gastroenteritis, migraine. Ruling out the most morbid conditions drove assessment. On exam, the patient is nontoxic-appearing. She alert and oriented x 4 and has no meningismus. Cardiopulmonary and abdominal exams are benign. Official close a viral syndrome causing her symptoms. I considered obtaining basic lab evaluation, however given reassuring history and exam I do not feel that this is indicated as it would likely not change control specialist. I also consider chest x-ray, but she has no adventitious lung sounds and I feel is likely viral, so this was not ordered. I did send viral swabs. Also give the patient a bolus of IV fluids, IV Toradol, acetaminophen, and Zofran for symptomatic improvement. She had good improvement and was resting comfortably on reassessment with normal vital signs on cardiac telemetry. She did test positive for COVID-19, which I notified her of. Ultimately at this time I feel that she is appropriate for discharge home with instructions for supportive management of viral syndrome. She was given prescriptions for Bromfed and Zofran as well as instructions for close follow-up with her primary care provider. She was discharged after all questions were answered. Critical Care Critical Care Time Critical Care Time: No
[2024-04-21 20:30] VITALS: BP 116/66; PULSE 93; O2SAT 96
[2024-04-21 20:40] LABS: Influenza A, PCR Not Detected (NotDetected); Influenza B, PCR Not Detected (NotDetected)
[2024-04-21] MEDS: ACETAMINOPHEN 1,000MG/100ML VIAL 1000 MG IV (20:46)
[2024-04-21] MEDS: KETOROLAC 30MG/ML VIAL 15 MG IV (20:46)
[2024-04-21] MEDS: LACTATED RINGERS 1000ML 1,000 ML 999 ML IV (20:46)
[2024-04-21 21:00] VITALS: BP 115/64; PULSE 92; O2SAT 97
[2024-04-21 21:30] VITALS: BP 113/71; PULSE 73; O2SAT 95
[2024-04-21 21:39] LABS: Coronavirus 19, PCR Detected (NotDetected)
[2024-04-21 22:06] VITALS: BP 113/71; PULSE 71; RESP 18; TEMP 37.2; O2SAT 94
== END 2024-04-21 22:07 | disposition home or self-care (01) ==
PROVIDERS: Emergency Provider Emergency Medicine; PCP Nurse Practitioner Family
DX: U07.1 COVID-19 (principal); R50.9 Fever, unspecified; R09.81 Nasal congestion; R51.9 Headache, unspecified; R05.9 Cough, unspecified; M79.10 Myalgia, unspecified site
CPT/HCPCS: 87636; 96361; 96374; 96375; 99283; J0131; J1885; J7120

== ENCOUNTER 2024-08-25 16:46 | Outpatient (CLI) | payer OTHER, SELFPAY ==
--- OUTSIDE RECORDS SUMMARY | 2024-08-25 16:47 | XMS_ITS ---
Author Organization [facility] , [facility] Address [address] [place] [address] Phone Care Team Providers Care Feature Writer Name Role Phone Kali PURI, Shaggy Cortes Unavailable [phone] JYOTI PALENCIA MD Primary Care Provider [phone] Problems Includes: Active, inactive, and resolved Problems All Visits Onset Date Resolved Date Provider Condition S tatus Joint Pain, Localized in the Left Shoulder 04/04/2022 Shaggy Bass MD Active Last Documented On 2 10:14AM ; [facility] Plan of Treatment Instructions to patient Lose weight Last Documented On 3 2:55PM ; [facility] Assessments Includes: Assessments for all patient encounters No Assessments Recorded Instructions Includes: Instructions for all patient encounters Instructions to patient Lose weight Last Documented On 3 2:55PM ; [facility] Medical Equipment - Implanted Devices Includes: Current and historical Devices No Medical Equipment Recorded Medications Includes: Current and historical Medications Current Medications (continue as prescribed) Omeprazole 20 MG Oral Capsule Delayed Release 03/26/20 Provider: Libra Askew APRN Diagnosis: Last Documented On 3 2:48PM By Arya Peacock ; [facility] Medications Administered Includes: Administered Medications in patient's chart No Administered Medications Recorded Results Includes: Results from 08/26/2023 through 08/25/2024 No Results Recorded For Specified Dates History of Present Illness History of Present Illness not supported for this document type No History of Present Illness Recorded Social History Description Last Updated Tobacco non-user 08/01/2022 Last Documented On 3 5:04PM ; [facility], [facility] Alcohol use 08/01/2022 Last Documented On 3 5:04PM ; [facility], [facility] Caffeine use 08/01/2022 Last Documented On 3 5:04PM ; [facility], [facility] Exercising regularly 08/01/2022 Last Documented On 3 5:04PM ; [facility], [facility] No recent change in diet 08/01/2022 Last Documented On 3 5:04PM ; [facility], [facility] Not using drugs 08/01/2022 Last Documented On 3 5:04PM ; [facility], [facility] Yes, current smoker. 08/01/2022 Last Documented On 3 5:04PM ; [facility], [facility] Smoking Status Unknown Procedures and Surgical History Surgical History Last Updated History of hysterectomy 08/01/2022 Last Documented On 3 5:04PM ; [facility], [facility] Medical History Includes: Medical History in patient's chart No Medical History Recorded Family History Includes: Family History in patient's chart Description Last Updated Diabetes mellitus 08/01/2022 Last Documented On 3 5:04PM ; [facility], [facility] Family history of cancer 08/01/2022 Last Documented On 3 5:04PM ; [facility], [facility] Family history of heart disease 08/02/19 23 Last Documented On 3 5:04PM ; [facility], [facility] Family history of osteoporosis 3 Last Documented On 3 5:04PM ; [facility], [facility] Family history of rheumatoid arthritis 0 08/01/2022 Last Documented On 3 5:04PM ; [facility], [facility] Family history of systemic hypertension 08/01/2022 Last Documented On 3 5:04PM ; [facility], [facility] Review of Systems Review of Systems not supported for this document type No Review of Systems Recorded Mental Status Description Anxiety Functional Status No Functional Status Recorded Physical Exam Physical Exam not supported for this document type No Physical Exam Recorded Allergies Includes: Active, inactive, and resolved Allergies Substance Type Reaction Onset Date Resolved Date Statu s Sulfa Antibiotics Allergy 08/01/2022 A ctive Last Documented On 3 2:49PM ; [facility], [facility] Insurance Includes: Active Insurance Policies Plan Name Member ID Group # Subscriber Relationship Effect [id number] Dates 1 - THE Disconnect [id number] Renu Desouza Self 10/28/2022 - Un known Clinical Notes Includes: Signed Clinical Notes starting from 04/13/2022 No Clinical Notes Recorded
--- OUTSIDE RECORDS SUMMARY | 2024-08-25 16:48 | XMS_ITS | Data Portability ---
Author Organization [place] - [facility] Address [address] [place] [address] Care Team Providers Care Obgyn Specialist Name Role Phone TANYA GUZMAN Referring Provider TANYA GUZMAN Primary Care Provider [phone] Assessment No assessment recorded. Plan of Treatment Reminders Order Date Submit Date Provider Last Modified By Organization Details Last Modified Time Details Appointments None recorded. Lab None recorded. Referral None recorded. Procedures None recorded. Surgeries None recorded. Imaging None recorded. Medication Orders omeprazole 20 mg capsule,del ayed release [address] [place] [address] Pharmacy, [address] [place] [address], [address], [place], [address], 16:21:59 Patient TargetsNo targets recorded. Patient InstructionsNo instructions recorded. Reason for Referral None Reported. Results Created Date Observation Date Name Description Value Unit Range Abnormal Flag Note LastModifiedBy Organization Detail LastModifiedTime Result Notes None recorded. Medical Equipment None Reported. Medications Name Sig Start Date Stop Date Status Note LastModified by Organization Details LastModified Time fluconazole 150 mg tablet active Not Available Not Availabl e Not Available penicillin V potassium 500 mg tablet active Not Available Not Available No t Available methocarbamol 750 mg tablet active Not Available Not Availabl e Not Available pantoprazole 40 mg tablet,delayed release active Not Available Not Available Not Available omeprazole 20 mg capsule,delaye d release Take 1 capsule every day by oral route for 30 days. active Not Available Not Available No t Available fluocinonide 0.05 % topical solution active Not Available Not Available Not Available cefdinir 300 mg capsule active Not Available Not Available N ot Available Otezla 30 mg tablet active Not Available Not Available Not Available Clenpiq 10 mg-3.5 gram-12 gram/160 mL oral solution drink 1 5.4 oz bottle at 5 pm followed by 5 cups of clear liquid. Repeat 6 hours before procedure . active Not Available Not Available No t Available Flowflex COVID-19 Antigen Home Test kit active Not Available Not Available Not Available Vitals Date Recorded Body weight Heart rate Systolic blood pressure Diastolic blood pressure Provider Name and Address Organization Details Last Updated DateTime 02/09/2022 61152.15 g 91 /min 112 mm[Hg] 62 mm[Hg] [facility] Mcgee [facility] [place] [facility] [place] 02/09/2022 14:09:27 Social History None recorded. Functional Status None recorded. Mental Status None recorded. Family History Nothing Reported. Medical History No medical history recorded. Gynecological HistoryNo gynecological history recorded. Obstetrics History GPAL:G 0 P 0 0 0 0 Past Encounters Encounter ID Performer Location Encounter Start Date Encounter Closed Date Diagnosis/Indication Diagnosis SNOMED-CT Code Diagnosis ICD10 Code Diagnosis Note [id number] Adrianna Askew NP [facility] [address] [address] 02/09/2022 13:55:45 02/09/2022 15:30:55 Dark stools 05977963 R19.5 - Colonoscop y scheduled- advised Bismuth and iron supplement s also can give stool the appearance of being dark Heartburn 02759254 R12 -Stop taking NSAIDs-Slim id alcohol, NSAIDS, or trigger foods-Omep razole BID x 12 weeks. Consider decreasing to once daily at follow up.- EGD scheduled [id number] Adrianna Askew NP [facility] [address] [address] 05/05/2022 11:08:57 05/05/2022 11:23:02 Gastritis 0088558 K29.70 - continue omeprazole once daily- stay upright 30-60 minutes after eating- avoid trigger/fo ods- also discussed results of EGD colonoscop y. Patient verbalized Health Concerns Section Related Observation LastModified by Organization Detai ls LastModified Time None Recorded Concern Status LastModified by Organization Details LastModified Time None Recorded Advance Directives Directive None Recorded Payers Encounter Date Sequence Insurance Name Policy Number Policy Justin Covered Member ID Justin Member ID Guarantor Name 02/09/2022 1 [place] [id number] Renu Desouza [id number] Renu J Deo 05/05/2022 1 [place] [id number] Renu Desouza [id number] Renu J Deo Notes Date Note Type Note Provider Name and Address Organization Details Recorded Time 02/09/2022 text/html Patient is a 36 year old female referred to our office by Dr Barragan in [place]. Reports black stool, intermittent dysphagia. Reports heartburn and nausea. Denies hematemesis or vomiting. Denies constipation. Reports stool is typically loose. Still has gall bladder. Does not take Iron supplements or Bismuth. Takes Aleve 8 tablets daily. Adrianna Askew NP [address] , [place], [address], [facility] [place] 02/09/2022 16:23:09 05/05/2022 text/html (02/09/22)Sena t is a 36 year old female referred to our office by Dr Barragan in [place]. Reports black stool, intermittent dysphagia. Reports heartburn and nausea. Denies hematemesis or vomiting. Denies constipation. Reports stool is typically loose. Still has gall bladder. Does not take Iron supplements or Bismuth. Takes Aleve 8 tablets daily.(05/05/22) A total of 8 minutes were spent with the patient during this telephone encounter. Greater than 50% of the time spent in medical decision making and evaluation. Adrianna Askew NP [address] , [place], [address], [facility] & [place] 05/05/2022 11:30:07 OBGyn Episode No OBEpisode recorded.
--- OUTSIDE RECORDS SUMMARY | 2024-08-25 16:48 | XMS_ITS ---
Care Plan - [facility], [facility] Created on: August 25, 2024 DeoRenu richmond : 1985 Sex: Female Author Organization [facility] , [facility] Address [address] [place] [address] Phone Care Team Providers Care Pinball Machine Repairer Name Role Phone Kali PURI, Shaggy P Unavailable [phone] SLIME PURI, JYOTI Salgado Primary Care Provider [phone]
--- OUTSIDE RECORDS SUMMARY | 2024-08-25 16:48 | XMS_ITS | Clinical Summary ---
Author Organization [facility] , [facility] Address [address] [place] [address] Phone Care Team Providers Care Bed Rubber Name Role Phone Kali PURI, Shaggy Cortes Unavailable [phone] JYOTI PALENCIA MD Primary Care Provider [phone] Reason for Visit and Chief Complaint The Chief Complaint is: L shoulder pain Problems Includes: Problems addressed during this encounter and other active Problems All Visits Onset Date Resolved Date Provider Condition S tatus Joint Pain, Localized in the Left Shoulder 04/04/2022 Shaggy Bass MD Active Last Documented On 2 10:14AM ; [facility] Plan of Treatment Instructions to patient Lose weight Last Documented On 3 2:55PM ; [facility], [facility] Assessments Includes: Assessments from this encounter Findings 37 year old presents with pain in the left shoulder, she reports that she has had pain in this shoulder for about one- two years. She states that she has constant daily pain in this shoulder. she can not recall a specific injury to this shoulder. She reports that the pain started after the covid injection and reports that the pain has gradually progressed since the day of the injection. She reports that she has a history of 4 pinched nerves in her neck and she has tingling that tracks down the arm to the hands. She comes today with a MRI that shows, inflammation in the bone of the greater tuberosity - Last Documented On 08/02/2022 5:04PM ; [facility], [facility] 08/01/2022-left shoulder pain today follow-up she has been a 6 out of 10 on the pain scale steroid shot in March once another one and no new trauma injury or falls she is been taking medication for psoriatic arthritis but nothing else has been changed. - Last Documented On 08/02/2022 5:04PM ; [facility], [facility] PHYSICAL EXAM - Last Documented On 08/02/2022 5:04PM ; [facility], [facility] CONSTITUTIONAL: Well developed, well groomed, well nourished patient in no acute distress who appears stated age, height and weight. - Last Documented On 08/02/2022 5:04PM ; [facility], [facility] PSYCHIATRIC: The patient is alert and oriented to person, place, date and situation. Mood and affect are normal for current situation. - Last Documented On 08/02/2022 5:04PM ; [facility], [facility] NEUROLOGICAL: Sensation normal bilateral upper and lower extremities. - Last Documented On 08/02/2022 5:04PM ; [facility], [facility] LYMPHATIC: No pitting edema noted in the lower extremities. - Last Documented On 08/02/2022 5:04PM ; [facility], [facility] SKIN: No lesions noted on upper or lower extremities. Skin is dry, warm and with normal turgor. - Last Documented On 08/02/2022 5:04PM ; [facility], [facility] VASCULAR: No swelling in upper or lower extremities other than described below in extremity exam. Radial pulses normal in both upper extremities. - Last Documented On 08/02/2022 5:04PM ; [facility], [facility] GAIT AND STATION: Normal gait without assistive devices. Station normal. - Last Documented On 08/02/2022 5:04PM ; [facility], [facility] LEFT SHOULDER: No atrophy. tenderness to palpation over Ac joint . No crepitation. Active Range of Motion: Abduction 160 degrees, Forward flexion 160 degrees, External rotation with arm at side 35 degrees, Internal rotation to level of . Passive Range of Motion: not limited. Stability: no anterior, no posterior, no inferior laxity. Strength: Forward flexion 5/5 limited by pain , Internal rotation 5/5, External rotation 5/5. Negative Impingement sign. Negative Cross Arm test. Negative Francis's test. No pain with Speeds test. Negative drop arm test. - Last Documented On 08/02/2022 5:04PM ; [facility], [facility] RIGHT SHOULDER: No atrophy. No tenderness to palpation. No crepitation. Active Range of Motion: Abduction 160 degrees, Forward flexion 180 degrees, External rotation with arm at side degrees, Internal rotation to level of T12. Passive Range of Motion: not limited. Stability: no anterior, no posterior, no inferior laxity. Strength: Forward flexion 5/5, Internal rotation 5/5, External rotation 5/5. Negative Impingement sign. Negative Cross Arm test. Negative Francis's test. Negative Speeds test. Negative drop arm test. - Last Documented On 08/02/2022 5:04PM ; [facility] Cervical Spine: No tenderness to palpation. No pain with flexion, extension, lateral rotation, or lateral bending of the cervical spine. Negative Spurling sign. - Last Documented On 08/02/2022 5:04PM ; [facility] ASSESSMENT AND PLAN - Last Documented On 08/02/2022 5:04PM ; [facility] Initial visit for left shoulder pain that occurred 2 years ago after getting a covid injection. She reports that the pain she is having in this shoulder started the same time she got the covid injection. She comes toady with a MRI that shows inflammation the bone of the greater tuberosity. We discussed that this could be related to the injection and the possibility that the needle hit the bone. Specifically SIRVA. Moving forward i would recommend a cortisone injection to help calm down the inflammation in this shoulder. I would also recommend physical therapy to work on the mechanics of the shoulder. I will follow up with her for a recheck in 3 months where she can have another injection if needed. We could also consider a shoulder scope and debridement if symptoms persist. - Last Documented On 08/02/2022 5:04PM ; [facility] 08/01/2022-patient got a left shoulder injection into the subacromial bursa and joint space and the patient is doing well with that took the injection very well to sterile prep the patient has no other abnormalities dislocations or subluxations that we see on physical examination. Follow-up in 3 months if needed - Last Documented On 08/02/2022 5:04PM ; [facility] LEFT SHOULDER INJECTION-After sterile prep with alcohol, using sterile technique & posterior approach, 8 cc Marcaine and 40 mg of Kenalog was injected into the left shoulder subacromial space. Hemostasis obtained at the end of the procedure. Patient tolerated the procedure well and will ice for 10-15 minutes once or twice later today. - Last Documented On 08/02/2022 5:04PM ; [facility], [facility] Instructions Includes: Instructions from this encounter Instructions to patient Lose weight Last Documented On 3 2:55PM ; [facility], [facility] Medical Equipment - Implanted Devices Includes: Current Devices No Medical Equipment Recorded Medications Includes: Medications discussed during this encounter and other current Medications Current Medications (continue as prescribed) Omeprazole 20 MG Oral Capsule Delayed Release 03/26/20 22 Provider: Libra Askew APRN Diagnosis: Last Documented On 3 2:48PM By Arya Peacock ; [facility], [facility] Medications Administered Includes: Administered Medications from this encounter No Administered Medications Recorded Vital Signs Includes: Vital Signs from this encounter Vital Name 08/01/2022 02:55P Height (in) 65 Weight (lb) 168 Body Mass Index 28 Body Surface Area 1.8 Note: snb Last Documented: On 08/01/2022 2:56PM ; [facility], [facility] Results Includes: Results discussed during this encounter No Results Recorded For Specified Dates History of Present Illness Includes: History of Present Illness from this encounter KYLE Desouza is a 37 year old female. - Allergy list reviewed - Problem list reviewed - Medication list reviewed - Previous history of new onset pain Injury is not work related or an automotive accident - Patient pain level from 1-10: 8 - No previous treatment. Social History Description Last Updated Tobacco non-user 08/01/2022 Last Documented On 3 5:04PM ; [facility], [facility] Alcohol use 08/01/2022 Last Documented On 3 5:04PM ; [facility], [facility] Caffeine use 08/01/2022 Last Documented On 3 5:04PM ; [facility] Exercising regularly 08/01/2022 Last Documented On 3 5:04PM ; [facility], [facility] No recent change in diet 08/01/2022 Last Documented On 3 5:04PM ; [facility], [facility] Not using drugs 08/01/2022 Last Documented On 3 5:04PM ; [facility], [facility] Yes, current smoker. 08/01/2022 Last Documented On 3 5:04PM ; [facility], [facility] Smoking Status Unknown Procedures and Surgical History Includes: Procedures from this encounter Procedures Code Diagnosis Performing Provider Service L ocation Service Date use of tobacco assessment performed 1000F Last Documented On 3 2:55PM ; [facility], [facility] an X-ray was performed 44745 Last Documented On 3 2:51PM ; [facility] an MRI was performed [id number] Last Documented On 3 2:51PM ; [facility], [facility] Surgical History Last Updated History of hysterectomy 08/01/2022 Last Documented On 3 5:04PM ; [facility], [facility] Medical History Includes: Medical History addressed during this encounter No Medical History Recorded Family History Includes: Family History addressed during this encounter Description Last Updated Diabetes mellitus 08/01/2022 Last Documented On 3 5:04PM ; [facility], [facility] Family history of cancer 08/01/2022 Last Documented On 3 5:04PM ; [facility] Family history of heart disease 08/02/19 23 Last Documented On 3 5:04PM ; [facility], [facility] Family history of osteoporosis 3 Last Documented On 3 5:04PM ; [facility], [facility] Family history of rheumatoid arthritis 0 08/01/2022 Last Documented On 3 5:04PM ; [facility], [facility] Family history of systemic hypertension 08/01/2022 Last Documented On 3 5:04PM ; [facility], [facility] Review of Systems Includes: Review of Systems from this encounter Systemic: Not feeling tired and no recent weight loss. Recent weight gain. Head: No headache. Sinus pain. Eyes: No vision problems and no Cataracts. Glasses/Contacts. No Glaucoma. Otolaryngeal: No hearing loss and no tinnitus. Cardiovascular: No chest pain or discomfort. Palpitations. No Hypertension and no High Cholesterol. Pulmonary: No daytime asthma symptoms and no chronic cough. No wheezing. Gastrointestinal: No heartburn and no abdominal pain. No Indigestion, no Acid Reflux, no Peptic Ulcer, no GI Stomach Bleed, and no Ulcers. Endocrine: No hot flashes, no muscle weakness, no Diabetes, no Hypothyroid, and no Hyperthyroid. Hematologic: No easy bleeding. A tendency for easy bruising. No Anemia. Musculoskeletal: Arthritis. No lower back pain. No soft tissue swelling. Pain localized to one or more joints. Neurological: No dizziness, no convulsions, and no numbness. Psychological: Anxiety. No emotional lability, no depression, and no insomnia. Not crying for no reason. Skin: No dry skin. No Ulcers, no Scars, and no rash. Allergic and Immunologic: Complaint of seasonal allergic reaction. Mental Status Includes: Mental Status from this encounter Description Anxiety Functional Status Includes: Functional Status from this encounter No Functional Status Recorded Physical Exam Includes: Physical Exam from this encounter Allergies Includes: Active Allergies Substance Type Reaction Onset Date Resolved Date Statu s Sulfa Antibiotics Allergy 08/01/2022 A ctive Last Documented On 3 2:49PM ; [facility] Encounters Encounter Provider Location Date Check-In Time Check- Out Time Diagnosis Follow Up Joel Lala PA-C [facility] 3 2:25PM 3:05PM Insurance Includes: Active Insurance Policies Plan Name Member ID Group # Subscriber Relationship Effect jorje Dates 1 - THE No [employer] [id number] Renu Desouza Self 10/28/2022 - Un known Clinical Notes Includes: Clinical Notes from this encounter * Progress note Date Encounter Last Documented by 08/01/2022 Follow Up Last documented on 08/02/2022; 5:04 PM, Joel Lala PA-C; [facility] Active Problems & Conditions - Joint Pain, Localized in the Left Shoulder Chief Complaint The Chief Complaint is: L shoulder pain. Referred Here Referred by. History of Present Illness Renu Desouza is a 37 year old female. - Allergy list reviewed - Problem list reviewed - Medication list reviewed - Previous history of new onset pain Injury is not work related or an automotive accident - Patient pain level from 1-10: 8 - No previous treatment. Current Medication - Omeprazole 20 MG Oral Capsule Delayed Release 60 days, 0 refills Past Medical/Surgical History Surgical: - Hysterectomy Social History Yes, current smoker. Current diet: No recent change in diet. Caffeine use: Caffeine use. Tobacco use: Tobacco non-user. Alcohol: Alcohol use. Drug Use: Not using drugs. Habits: Exercising regularly. Allergies - Sulfa Antibiotics Family History Cancer Heart disease Diabetes mellitus Systemic hypertension Osteoporosis Rheumatoid arthritis Review Of Systems Systemic: Not feeling tired and no recent weight loss. Recent weight gain. Head: No headache. Sinus pain. Eyes: No vision problems and no Cataracts. Glasses/Contacts. No Glaucoma. Otolaryngeal: No hearing loss and no tinnitus. Cardiovascular: No chest pain or discomfort. Palpitations. No Hypertension and no High Cholesterol. Pulmonary: No daytime asthma symptoms and no chronic cough. No wheezing. Gastrointestinal: No heartburn and no abdominal pain. No Indigestion, no Acid Reflux, no Peptic Ulcer, no GI Stomach Bleed, and no Ulcers. Endocrine: No hot flashes, no muscle weakness, no Diabetes, no Hypothyroid, and no Hyperthyroid. Hematologic: No easy bleeding. A tendency for easy bruising. No Anemia. Musculoskeletal: Arthritis. No lower back pain. No soft tissue swelling. Pain localized to one or more joints. Neurological: No dizziness, no convulsions, and no numbness. Psychological: Anxiety. No emotional lability, no depression, and no insomnia. Not crying for no reason. Skin: No dry skin. No Ulcers, no Scars, and no rash. Allergic and Immunologic: Complaint of seasonal allergic reaction. Physical Findings - Vitals taken 08/01/2022 02:55 pm snb Height 65 in Weight 168 lbs Body Mass Index 28 kg/m2 Body Surface Area 1.8 m2 Standard Measurements: - Patient was overweight. Assessment 37 year old presents with pain in the left shoulder, she reports that she has had pain in this shoulder for about one- two years. She states that she has constant daily pain in this shoulder. she can not recall a specific injury to this shoulder. She reports that the pain started after the covid injection and reports that the pain has gradually progressed since the day of the injection. She reports that she has a history of 4 pinched nerves in her neck and she has tingling that tracks down the arm to the hands. She comes today with a MRI that shows, inflammation in the bone of the greater tuberosity 08/01/2022-left shoulder pain today follow-up she has been a 6 out of 10 on the pain scale steroid shot in March once another one and no new trauma injury or falls she is been taking medication for psoriatic arthritis but nothing else has been changed. PHYSICAL EXAM CONSTITUTIONAL: Well developed, well groomed, well nourished patient in no acute distress who appears stated age, height and weight. PSYCHIATRIC: The patient is alert and oriented to person, place, date and situation. Mood and affect are normal for current situation. NEUROLOGICAL: Sensation normal bilateral upper and lower extremities. LYMPHATIC: No pitting edema noted in the lower extremities. SKIN: No lesions noted on upper or lower extremities. Skin is dry, warm and with normal turgor. VASCULAR: No swelling in upper or lower extremities other than described below in extremity exam. Radial pulses normal in both upper extremities. GAIT AND STATION: Normal gait without assistive devices. Station normal. LEFT SHOULDER: No atrophy. tenderness to palpation over Ac joint . No crepitation. Active Range of Motion: Abduction 160 degrees, Forward flexion 160 degrees, External rotation with arm at side 35 degrees, Internal rotation to level of . Passive Range of Motion: not limited. Stability: no anterior, no posterior, no inferior laxity. Strength: Forward flexion 5/5 limited by pain , Internal rotation 5/5, External rotation 5/5. Negative Impingement sign. Negative Cross Arm test. Negative Francis's test. No pain with Speeds test. Negative drop arm test. RIGHT SHOULDER: No atrophy. No tenderness to palpation. No crepitation. Active Range of Motion: Abduction 160 degrees, Forward flexion 180 degrees, External rotation with arm at side degrees, Internal rotation to level of T12. Passive Range of Motion: not limited. Stability: no anterior, no posterior, no inferior laxity. Strength: Forward flexion 5/5, Internal rotation 5/5, External rotation 5/5. Negative Impingement sign. Negative Cross Arm test. Negative Francis's test. Negative Speeds test. Negative drop arm test. Cervical Spine: No tenderness to palpation. No pain with flexion, extension, lateral rotation, or lateral bending of the cervical spine. Negative Spurling sign. ASSESSMENT AND PLAN Initial visit for left shoulder pain that occurred 2 years ago after getting a covid injection. She reports that the pain she is having in this shoulder started the same time she got the covid injection. She comes toady with a MRI that shows inflammation the bone of the greater tuberosity. We discussed that this could be related to the injection and the possibility that the needle hit the bone. Specifically SIRVA. Moving forward i would recommend a cortisone injection to help calm down the inflammation in this shoulder. I would also recommend physical therapy to work on the mechanics of the shoulder. I will follow up with her for a recheck in 3 months where she can have another injection if needed. We could also consider a shoulder scope and debridement if symptoms persist. 08/01/2022-patient got a left shoulder injection into the subacromial bursa and joint space and the patient is doing well with that took the injection very well to sterile prep the patient has no other abnormalities dislocations or subluxations that we see on physical examination. Follow-up in 3 months if needed LEFT SHOULDER INJECTION-After sterile prep with alcohol, using sterile technique & posterior approach, 8 cc Marcaine and 40 mg of Kenalog was injected into the left shoulder subacromial space. Hemostasis obtained at the end of the procedure. Patient tolerated the procedure well and will ice for 10-15 minutes once or twice later today. Previous Tests Imaging: X-Ray: An X-ray was performed. MRI Scan: An MRI was performed. Counseling/Education - Lose weight Notes transcribed by Alana Traore This dictation was done with voice recognition software and may contain errors and omissions. Practice Management Use of tobacco assessment performed. Care Team - JYOTI PALENCIA MD - CERAMIC RESEARCH ENGINEER
--- OUTSIDE RECORDS SUMMARY | 2024-08-25 16:48 | XMS_ITS | Clinical Summary ---
Author Organization [facility] Address [address] [place] [address] Phone Care Team Providers Care Rn Nursery Name Role Phone Kali PURI, Shaggy Cortes Unavailable [phone] JYOTI PALENCIA MD Primary Care Provider [phone] Reason for Visit and Chief Complaint The Chief Complaint is: L shoulder pain Problems Includes: Problems addressed during this encounter and other active Problems Current Visit Onset Date Resolved Date Provider Vandana lawrence Status Joint Pain, Localized in the Left Shoulder 04/04/2022 Shaggy Bass MD Active Last Documented On 2 10:14AM ; [facility], [facility] Plan of Treatment Pending Tests Order Diagnosis Results Due Ordering P rovider Therapy - Physical Therapy Shoulder 04/04/22 Shaggy Bass MD Last Documented On 2 11:44AM ; [facility] Assessments Includes: Assessments from this encounter [...] the greater tuberosity - Last Documented On 04/04/2022 11:44AM ; [facility] PHYSICAL EXAM - Last Documented On 04/04/2022 11:44AM ; [facility] CONSTITUTIONAL: Well developed, well groomed, well nourished patient in no acute distress who appears stated age, height and weight. - Last Documented On 04/04/2022 11:44AM ; [facility] PSYCHIATRIC: The patient is alert and oriented to person, place, date and situation. Mood and affect are normal for current situation. - Last Documented On 04/04/2022 11:44AM ; [facility] NEUROLOGICAL: Sensation normal bilateral upper and lower extremities. - Last Documented On 04/04/2022 11:44AM ; [facility] LYMPHATIC: No pitting edema noted in the lower extremities. - Last Documented On 04/04/2022 11:44AM ; [facility] SKIN: No lesions noted on upper or lower extremities. Skin is dry, warm and with normal turgor. - Last Documented On 04/04/2022 11:44AM ; [facility] VASCULAR: No swelling in upper or lower extremities other than described below in extremity exam. Radial pulses normal in both upper extremities. - Last Documented On 04/04/2022 11:44AM ; [facility] GAIT AND STATION: Normal gait without assistive devices. Station normal. - Last Documented On 04/04/2022 11:44AM ; [facility] LEFT SHOULDER: No atrophy. tenderness to [...] drop arm test. - Last Documented On 04/04/2022 11:44AM ; [facility] RIGHT SHOULDER: No atrophy. No tenderness [...] drop arm test. - Last Documented On 04/04/2022 11:44AM ; [facility] Cervical Spine: No tenderness to palpation. No pain with flexion, extension, lateral rotation, or lateral bending of the cervical spine. Negative Spurling sign. - Last Documented On 04/04/2022 11:44AM ; [facility] ASSESSMENT AND PLAN - Last Documented On 04/04/2022 11:44AM ; [facility] Initial visit for left shoulder [...] if symptoms persist. - Last Documented On 04/04/2022 11:44AM ; [facility] LEFT SHOULDER INJECTION-After sterile prep with alcohol, using sterile technique & posterior approach, 8 cc Marcaine and 40 mg of Kenalog was injected into the left shoulder subacromial space. Hemostasis obtained at the end of the procedure. Patient tolerated the procedure well and will ice for 10-15 minutes once or twice later today. - Last Documented On 04/04/2022 11:44AM ; [facility] Medical Equipment - Implanted Devices Includes: Current Devices No Medical Equipment Recorded Medications Includes: Medications discussed during this encounter and other current Medications Current Medications (continue as prescribed) Omeprazole 20 MG Oral Capsule Delayed Release 03/26/20 22 Provider: Libra Askew APRN Diagnosis: Last Documented On 3 2:48PM By Arya Peacock ; [facility] Medications Administered Includes: Administered Medications from this encounter No Administered Medications Recorded Vital Signs Includes: Vital Signs from this encounter Vital Name 04/04/2022 10:31A Blood Pressure Sitting (mmHg) 120/77 Pulse Rate-Sitting (bpm) 83 Height (in) 65 Weight (lb) 166 Body Mass Index (kg/m2) 27.6 Body Surface Area (m2) 1.8 Note: td Last Documented: On 04/04/2022 10:31A M ; [facility] Results Includes: Results discussed during this encounter No Results Recorded For Specified Dates History of Present Illness Includes: History of Present Illness from this encounter HPI Renu Desouza is a 37 year old female. - Allergy list reviewed - Problem list reviewed - Medication list reviewed Social History No Social History Recorded - Smoking Status Unknown Medical History Includes: Medical History addressed during this encounter No Medical History Recorded Family History Includes: Family History addressed during this encounter No Family History Recorded Review of Systems Includes: Review of Systems from this encounter No Review of Systems Recorded Mental Status Includes: Mental Status from this encounter No Mental Status Recorded Functional Status Includes: Functional Status from this encounter No Functional Status Recorded Physical Exam Includes: Physical Exam from this encounter Allergies Includes: Active Allergies Substance Type Reaction Onset Date Resolved Date Statu s Sulfa Antibiotics Allergy 08/01/2022 A ctive Last Documented On 3 2:49PM ; [facility] Encounters Encounter Provider Location Date Check-In Time Check-Out Time Diagnosis Next Available Non-Specified Physician Shaggy Bass MD [facility] B 04/04/20 22 9:37AM 11:34AM Insurance Includes: Active Insurance Policies Plan Name Member ID Group # Subscriber Relationship Effect jorje Dates 1 - THE [employer] [id number] Renu Desouza Self 10/28/2022 - Un known Clinical Notes Includes: Clinical Notes from this encounter No Clinical Notes Recorded
[2024-08-25 17:06] LABS: Basophils # 0.1 K/mm3 (0-0.2); Basophils % 1.2 % (0.1-2.0); Eosinophils # 0.1 Kmm3 (0.0-0.4); Eosinophils % 1.5 % (0.1-12.0); Hematocrit 39.9 % (37.0-47.0); Hemoglobin 13.4 g/dL (12.2-16.2); Lymphocytes # 2.6 K/mm3 (0.7-4.5); Lymphocytes % 35.1 % (10-50); Mean Corpuscular HGB Conc 33.6 g/dL (31.8-35.4); Mean Corpuscular Hemoglobin 31.2 pg (27.0-31.2); Mean Platelet Volume 10.3 fl (7.4-10.4); Monocytes # 0.5 K/mm3 (0.1-1.0); Monocytes % 6.7 % (1.7-9.3); Neutrophils # 4.1 K/mm3 (1.8-7.8); Neutrophils % 55.2 % (37.0-80.0); Nucleated Red Blood Cells # 0 10^3/uL; Nucleated Red Blood Cells % 0 %; Platelet Count 255 K/mm3 (142-424); Red Blood Count 4.29 M/mm3 (4.20-5.40); Red Cell Distribution Width 13.6 % (11.5-17.5); White Blood Count 7.5 K/mm3 (4.8-10.8)
[2024-08-25 17:20] LABS: Albumin Level 4.1 g/dl (3.5-5.0); Chloride 106 mmol/L (98-107); Potassium 4.1 mmoL/L (3.5-5.1); Sodium 140 mmol/L (136-145)
[2024-08-25 17:23] LABS: Alanine Aminotransferase 26 U/L (12-78); Albumin/Globulin Ratio 1.7 (1.1-1.8); Alkaline Phosphatase 70 U/L (38-126); Anion Gap 8.1 mEq/L (5-15); Aspartate Amino Transferase 39 U/L (14-36); Bilirubin,Total 0.2 mg/dl (0.2-1.3); Blood Urea Nitrogen 4 mg/dl (7-17); Carbon Dioxide 30 mmol/L (22.0-30.0); Estimated Glomerular Filt Rate 110 ml/min (>60); GFR (African American) 133 ML/MIN (>60); Globulin 2.4 g/dL (1.3-3.2); Total Protein,Serum 6.5 g/dl (6.3-8.2)
[2024-08-25 17:24] LABS: Calcium 9.8 mg/dl (8.4-10.2); Glucose 87 mg/dl (74-100)
[2024-08-25 17:30] LABS: C-Reactive Protein 1.3 mg/L (0-4)
[2024-08-25 17:32] LABS: Erythrocyte Sedimentation Rate 10 mm/hr (0-20)
== END 2024-08-25 23:59 | disposition home or self-care (01) ==
LOC: LAB.DROPOF 16:46
PROVIDERS: PCP Nurse Practitioner Family; Visit Provider Nurse Practitioner Family
DX: L40.50 Arthropathic psoriasis, unspecified (principal); Z79.899 Other long term (current) drug therapy
CPT/HCPCS: 80053; 85025; 85651; 86140

== ENCOUNTER 2024-08-26 16:21 | Outpatient (CLI) | payer OTHER, SELFPAY ==
--- NOTE | 2024-08-26 16:23 | XR_ITS ---
PROCEDURE INFORMATION: Exam: XR Chest Exam date and time: 08/26/2024 4:25 PM Age: 39 years old Clinical indication: Other: Screening for tb; Additional info: Screening for tb, HX of pos ppd TECHNIQUE: Imaging protocol: Radiologic exam of the chest. Views: 2 views. COMPARISON: CR XR CHEST 2V 09/25/2023 4:50 PM FINDINGS: Lungs: No consolidations. No lung cavitations. Pleural spaces: Unremarkable. No pleural effusion. No pneumothorax. Heart/Mediastinum: Stable mediastinal calcified granulomas. Normal heart size. Bones/joints: Unremarkable. IMPRESSION: No acute findings.
--- OUTSIDE RECORDS SUMMARY | 2024-08-26 16:23 | XMS_ITS | Clinical Summary ---
Author Organization [facility] Address [address] [place] [address] Phone Care Team Providers Care Facility Technician Name Role Phone Kali PURI, Shaggy Cortes Unavailable [phone] JYOTI PALENCIA MD Primary Care Provider [phone] Reason for Visit and Chief Complaint The Chief Complaint is: L shoulder pain Problems Includes: Problems addressed during this encounter and other active Problems All Visits Onset Date Resolved Date Provider Condition S tatus Joint Pain, Localized in the Left Shoulder 04/04/2022 Shaggy Bass MD Active Last Documented On 2 10:14AM ; [facility] Plan of Treatment Instructions to patient Lose weight Last Documented On 3 2:55PM ; [facility] Assessments Includes: Assessments from this encounter [...] - Last Documented On 08/02/2022 5:04PM ; [facility] 08/01/2022-left shoulder pain today follow-up she has been a 6 out of 10 on the pain scale steroid shot in March once another one and no new trauma injury or falls she is been taking medication for psoriatic arthritis but nothing else has been changed. - Last Documented On 08/02/2022 5:04PM ; [facility] PHYSICAL EXAM - Last Documented On 08/02/2022 5:04PM ; [facility], [facility] CONSTITUTIONAL: Well developed, well groomed, well nourished patient in no acute distress who appears stated age, height and weight. - Last Documented On 08/02/2022 5:04PM ; [facility] PSYCHIATRIC: The patient is alert and oriented to person, place, date and situation. Mood and affect are normal for current situation. - Last Documented On 08/02/2022 5:04PM ; [facility] NEUROLOGICAL: Sensation normal bilateral upper and lower extremities. - Last Documented On 08/02/2022 5:04PM ; [facility] LYMPHATIC: No pitting edema noted in the lower extremities. - Last Documented On 08/02/2022 5:04PM ; [facility] SKIN: No lesions noted on upper or lower extremities. Skin is dry, warm and with normal turgor. - Last Documented On 08/02/2022 5:04PM ; [facility] VASCULAR: No swelling in upper or lower extremities other than described below in extremity exam. Radial pulses normal in both upper extremities. - Last Documented On 08/02/2022 5:04PM ; [facility] GAIT AND STATION: Normal gait without assistive devices. Station normal. - Last Documented On 08/02/2022 5:04PM ; [facility] LEFT SHOULDER: No atrophy. tenderness to [...] - Last Documented On 08/02/2022 5:04PM ; [facility] RIGHT SHOULDER: No atrophy. No tenderness [...] - Last Documented On 08/02/2022 5:04PM ; [facility] Cervical Spine: No tenderness to palpation. No pain with flexion, extension, lateral rotation, or lateral bending of the cervical spine. Negative Spurling sign. - Last Documented On 08/02/2022 5:04PM ; [facility] ASSESSMENT AND PLAN - Last Documented On 08/02/2022 5:04PM ; [facility] Initial visit for left shoulder pain that [...] - Last Documented On 08/02/2022 5:04PM ; [facility] 08/01/2022-patient got a left shoulder injection into the subacromial bursa and joint space and the patient is doing well with that took the injection very well to sterile prep the patient has no other abnormalities dislocations or subluxations that we see on physical examination. Follow-up in 3 months if needed - Last Documented On 08/02/2022 5:04PM ; [facility] LEFT SHOULDER INJECTION-After sterile prep with alcohol, using sterile technique & posterior approach, 8 cc Marcaine and 40 mg of Kenalog was injected into the left shoulder subacromial space. Hemostasis obtained at the end of the procedure. Patient tolerated the procedure well and will ice for 10-15 minutes once or twice later today. - Last Documented On 08/02/2022 5:04PM ; [facility] Instructions Includes: Instructions from this encounter Instructions to patient Lose weight Last Documented On 3 2:55PM ; [facility] Medical Equipment - Implanted Devices Includes: Current Devices No Medical Equipment Recorded Medications Includes: Medications discussed during this encounter and other current Medications Current Medications (continue as prescribed) Omeprazole 20 MG Oral Capsule Delayed Release 03/26/20 22 Provider: Libra Askew APRN Diagnosis: Last Documented On 3 2:48PM By Arya Peacock ; [facility] Medications Administered Includes: Administered Medications from this encounter No Administered Medications Recorded Vital Signs Includes: Vital Signs from this encounter Vital Name 08/01/2022 02:55P Height (in) 65 Weight (lb) 168 Body Mass Index 28 Body Surface Area 1.8 Note: snb Last Documented: On 08/01/2022 2:56PM ; [facility] Results Includes: Results discussed during this [...] Documented On 3 5:04PM ; [facility] Alcohol use 08/01/2022 Last Documented On 3 5:04PM ; [facility] Caffeine use 08/01/2022 Last Documented On 3 5:04PM ; [facility] Exercising regularly 08/01/2022 Last Documented On 3 5:04PM ; [facility] No recent change in diet 08/01/2022 Last Documented On 3 5:04PM ; [facility] Not using drugs 08/01/2022 Last Documented On 3 5:04PM ; [facility] Yes, current smoker. 08/01/2022 Last Documented On 3 5:04PM ; [facility] Smoking Status Unknown Procedures and Surgical History Includes: Procedures from this encounter Procedures Code Diagnosis Performing Provider Service L ocation Service Date use of tobacco assessment performed 1000F Last Documented On 3 2:55PM ; [facility] an X-ray was performed 20785 Last Documented On 3 2:51PM ; [facility] an MRI was performed [id number] Last Documented On 3 2:51PM ; [facility] Surgical History Last Updated History of hysterectomy 08/01/2022 Last Documented On 3 5:04PM ; [facility] Medical History Includes: Medical History addressed during this encounter No Medical History Recorded Family History Includes: Family History addressed during this encounter Description Last Updated Diabetes mellitus 08/01/2022 Last Documented On 3 5:04PM ; [facility] Family history of cancer 08/01/2022 Last Documented On 3 5:04PM ; [facility] Family history of heart disease 08/02/19 23 Last Documented On 3 5:04PM ; [facility] Family history of osteoporosis 3 Last Documented On 3 5:04PM ; [facility] Family history of rheumatoid arthritis 0 08/01/2022 Last Documented On 3 5:04PM ; [facility] Family history of systemic hypertension 08/01/2022 Last Documented On 3 5:04PM ; [facility] Review of Systems Includes: Review of [...] ctive Last Documented On 3 2:49PM ; [facility] Encounters Encounter Provider Location Date Check-In Time Check- Out Time Diagnosis Follow Up Joel Lala PA-C [facility] B 3 2:25PM 3:05PM Insurance Includes: Active Insurance Policies Plan Name Member ID Group # Subscriber Relationship Effect jorje Dates 1 - THE [employer] [id number] Renu Desouza Self 10/28/2022 - Un known Clinical Notes Includes: Clinical Notes from this encounter * Progress note Date Encounter Last Documented by 08/01/2022 Follow Up Last documented on 08/02/2022; 5:04 PM, Joel Lala PA-C; [facility] Active Problems & Conditions - Joint Pain, [...] Care Team - JYOTI PALENCIA MD - [place] ARCHITECT
--- OUTSIDE RECORDS SUMMARY | 2024-08-26 16:23 | XMS_ITS | Clinical Summary ---
Author Organization [facility] Address [address] [place] [address] Phone Care Team Providers Care Insurance Claim Representative Name Role Phone Kali PURI, Shaggy Cortes Unavailable [phone] JYOTI PALENCIA MD Primary Care Provider [phone] Reason for Visit and Chief Complaint The Chief Complaint is: L shoulder pain Problems Includes: Problems addressed during this encounter and other active Problems Current Visit Onset Date Resolved Date Provider Vandana lawrence Status Joint Pain, Localized in the Left Shoulder 04/04/2022 Shaggy Bass MD Active Last Documented On 2 10:14AM ; [facility], [facility] Plan of Treatment Pending Tests Order Diagnosis Results Due Ordering P rovider Therapy - Physical Therapy Shoulder 04/04/22 Shaggy Bass MD Last Documented On 2 11:44AM ; [facility], [facility] Assessments Includes: Assessments from this [...] - Last Documented On 04/04/2022 11:44AM ; [facility], [facility] PHYSICAL EXAM - Last Documented On 04/04/2022 11:44AM ; [facility], [facility] CONSTITUTIONAL: Well developed, well groomed, well nourished patient in no acute distress who appears stated age, height and weight. - Last Documented On 04/04/2022 11:44AM ; [facility], [facility] PSYCHIATRIC: The patient is alert and oriented to person, place, date and situation. Mood and affect are normal for current situation. - Last Documented On 04/04/2022 11:44AM ; [facility], [facility] NEUROLOGICAL: Sensation normal bilateral upper and lower extremities. - Last Documented On 04/04/2022 11:44AM ; [facility], [facility] LYMPHATIC: No pitting edema noted in the lower extremities. - Last Documented On 04/04/2022 11:44AM ; [facility], [facility] SKIN: No lesions noted on upper or lower extremities. Skin is dry, warm and with normal turgor. - Last Documented On 04/04/2022 11:44AM ; [facility], [facility] VASCULAR: No swelling in upper or lower extremities other than described below in extremity exam. Radial pulses normal in both upper extremities. - Last Documented On 04/04/2022 11:44AM ; [facility], [facility] GAIT AND STATION: Normal gait without assistive devices. Station normal. - Last Documented On 04/04/2022 11:44AM ; [facility], [facility] LEFT SHOULDER: No atrophy. tenderness [...] - Last Documented On 04/04/2022 11:44AM ; [facility], [facility] RIGHT SHOULDER: No atrophy. No [...] - Last Documented On 04/04/2022 11:44AM ; [facility] Cervical Spine: No tenderness to palpation. No pain with flexion, extension, lateral rotation, or lateral bending of the cervical spine. Negative Spurling sign. - Last Documented On 04/04/2022 11:44AM ; [facility] ASSESSMENT AND PLAN - Last Documented On 04/04/2022 11:44AM ; [facility] Initial visit for left shoulder pain [...] - Last Documented On 04/04/2022 11:44AM ; [facility] LEFT SHOULDER INJECTION-After sterile prep with alcohol, using sterile technique & posterior approach, 8 cc Marcaine and 40 mg of Kenalog was injected into the left shoulder subacromial space. Hemostasis obtained at the end of the procedure. Patient tolerated the procedure well and will ice for 10-15 minutes once or twice later today. - Last Documented On 04/04/2022 11:44AM ; [facility] Medical Equipment - Implanted Devices Includes: Current Devices No Medical Equipment Recorded Medications Includes: Medications discussed during this encounter and other current Medications Current Medications (continue as prescribed) Omeprazole 20 MG Oral Capsule Delayed Release 03/26/20 22 Provider: Libra Askew APRN Diagnosis: Last Documented On 3 2:48PM By Arya Peacock ; [facility] Medications Administered Includes: Administered Medications from this encounter No Administered Medications Recorded Vital Signs Includes: Vital Signs from this encounter Vital Name 04/04/2022 10:31A Blood Pressure Sitting (mmHg) 120/77 Pulse Rate-Sitting (bpm) 83 Height (in) 65 Weight (lb) 166 Body Mass Index (kg/m2) 27.6 Body Surface Area (m2) 1.8 Note: td Last Documented: On 04/04/2022 10:31A M ; [facility] Results Includes: Results discussed during [...] ctive Last Documented On 3 2:49PM ; [facility] Encounters Encounter Provider Location Date Check-In Time Check-Out Time Diagnosis Next Available Non-Specified Physician Shaggy Bass MD [facility] B 04/04/20 22 9:37AM 11:34AM Insurance Includes: Active Insurance Policies Plan Name Member ID Group # Subscriber Relationship Effect jorje Dates 1 - THE [employer] [id number] Renu Desouza Self 10/28/2022 - Un known Clinical Notes Includes: Clinical Notes from this encounter No Clinical Notes Recorded
--- OUTSIDE RECORDS SUMMARY | 2024-08-26 16:23 | XMS_ITS ---
Author Organization [facility] , [facility] Address [address] [place] [address] Phone Care Team Providers Care Circus Supervisor Name Role Phone Kali PURI, Shaggy Cortes Unavailable [phone] JYOTI PALENCIA MD Primary Care Provider [phone] Problems Includes: Active, inactive, and resolved Problems All Visits Onset Date Resolved Date Provider Condition S tatus Joint Pain, Localized in the Left Shoulder 04/04/2022 Shaggy Bass MD Active Last Documented On 2 10:14AM ; [facility] Plan of Treatment Instructions to patient Lose weight Last Documented On 3 2:55PM ; [facility] Assessments Includes: Assessments for all patient encounters No Assessments Recorded Instructions Includes: Instructions for all patient encounters Instructions to patient Lose weight Last Documented On 3 2:55PM ; [facility] Medical Equipment - Implanted Devices Includes: Current and historical Devices No Medical Equipment Recorded Medications Includes: Current and historical Medications Current Medications (continue as prescribed) Omeprazole 20 MG Oral Capsule Delayed Release 03/26/20 Provider: Libra Askew APRN Diagnosis: Last Documented On 3 2:48PM By Arya Peacock ; [facility] Medications Administered Includes: Administered Medications in patient's chart No Administered Medications Recorded Results Includes: Results from 08/27/2023 through 08/26/2024 No Results Recorded For Specified Dates History of Present Illness History of Present Illness not supported for this document type No History of Present Illness Recorded Social History Description Last Updated Tobacco non-user 08/01/2022 Last Documented On 3 5:04PM ; [facility] Alcohol use 08/01/2022 Last Documented On 3 5:04PM ; [facility] Caffeine use 08/01/2022 Last Documented On 3 5:04PM ; [facility], [facility] Exercising regularly 08/01/2022 Last Documented On 3 5:04PM ; [facility], [facility] No recent change in diet 08/01/2022 Last Documented On 3 5:04PM ; [facility] Not using drugs 08/01/2022 Last Documented On 3 5:04PM ; [facility] Yes, current smoker. 08/01/2022 Last Documented On 3 5:04PM ; [facility] Smoking Status Unknown Procedures and Surgical History Surgical History Last Updated History of hysterectomy 08/01/2022 Last Documented On 3 5:04PM ; [facility], [facility] Medical History Includes: Medical History in patient's chart No Medical History Recorded Family History Includes: Family History in patient's chart Description Last Updated Diabetes mellitus 08/01/2022 Last Documented On 3 5:04PM ; [facility], [facility] Family history of cancer 08/01/2022 Last Documented On 3 5:04PM ; [facility], [facility] Family history of heart disease 08/02/19 23 Last Documented On 3 5:04PM ; [facility], [facility] Family history of osteoporosis 3 Last Documented On 3 5:04PM ; [facility] Family history of rheumatoid arthritis 0 08/01/2022 Last Documented On 3 5:04PM ; [facility] Family history of systemic hypertension 08/01/2022 Last Documented On 3 5:04PM ; [facility] Review of Systems Review of Systems not [...] Documented On 3 2:49PM ; [facility], [facility] Insurance Includes: Active Insurance Policies Plan Name Member ID Group # Subscriber Relationship Effect [id number] Dates 1 - THE Rapp IT Up [id number] Renu Desouza Self 10/28/2022 - Un known Clinical Notes Includes: Signed Clinical Notes starting from 04/13/2022 No Clinical Notes Recorded
--- OUTSIDE RECORDS SUMMARY | 2024-08-26 16:24 | XMS_ITS ---
Care Plan - [facility] Created on: August 26, 2024 DeoRenu richmond : 1985 Sex: Female Author Organization [facility] , [facility] Address [address] [place] [address] Phone Care Team Providers Care Public Speaking Instructor Name Role Phone Kali PURI, Shaggy P Unavailable [phone] SLIME PURI, JYOTI Salgado Primary Care Provider [phone]
== END 2024-08-26 23:59 | disposition home or self-care (01) ==
LOC: RAD 16:21
PROVIDERS: PCP Nurse Practitioner Family; Visit Provider Nurse Practitioner Family
DX: R76.11 Nonspecific reaction to tuberculin skin test without active tuberculosis (principal); Z11.1 Encounter for screening for respiratory tuberculosis
CPT/HCPCS: 71046

== ENCOUNTER 2024-09-04 15:09 | Outpatient (CLI) | payer OTHER, SELFPAY ==
[2024-09-04 19:09] LABS: Chol/HDL Ratio 3.9 (1-3.5); Cholesterol 191 mg/dl (140-200); HDL Cholesterol 49 mg/dl (40-60); Triglycerides 282 mg/dl (30-150); VLDL Cholesterol 56 mg/dL (0-40)
[2024-09-04 19:22] LABS: Direct LDL Cholesterol 107.84 mg/dL (100-129)
[2024-09-04 19:25] LABS: Free T4 (Free Thyroxine) 0.93 ng/dl (0.78-2.19)
[2024-09-04 19:42] LABS: Thyroid Stimulating Hormone 1.19 uIU/mL (0.465-4.68)
== END 2024-09-04 23:59 | disposition home or self-care (01) ==
LOC: LAB 15:10
PROVIDERS: PCP Nurse Practitioner Family; Visit Provider Nurse Practitioner
DX: R06.02 Shortness of breath (principal); R00.2 Palpitations; E16.2 Hypoglycemia, unspecified
CPT/HCPCS: 36415; 80061; 84439; 84443; 93270

== ENCOUNTER 2024-09-05 16:15 | Outpatient (CLI) | payer OTHER, SELFPAY ==
--- OUTSIDE RECORDS SUMMARY | 2024-09-05 16:18 | XMS_ITS | Data Portability ---
Author Organization [place] - [facility] [place] [facility] & [place] [facility] Address [address] [place] [address] Care Team Providers Care Cutter Operator Helper Name Role Phone TANYA GUZMAN Referring Provider [phone] TANYA GUZMAN Primary Care Provider Assessment No assessment recorded. Plan of Treatment Reminders Order Date Submit Date Provider Last Modified By Organization Details Last Modified Time Details Appointments None recorded. Lab None recorded. Referral None recorded. Procedures None recorded. Surgeries None recorded. Imaging None recorded. Medication Orders omeprazole 20 mg capsule,del ayed release [address] [place] [address] Pharmacy, [address] [place] [address], [address], [place], [address], 16:21:59 Patient TargetsNo targets recorded. Patient InstructionsNo [...] Address Organization Details Last Updated DateTime 02/09/2022 80000.15 g 91 /min 112 mm[Hg] 62 mm[Hg] [facility] [place] & [place] 02/09/2022 14:09:27 Social History None recorded. Functional Status None recorded. Mental Status None recorded. Family History Nothing Reported. Medical History No medical history recorded. Gynecological HistoryNo gynecological history recorded. Obstetrics History GPAL:G 0 P 0 0 0 0 Past Encounters Encounter ID Performer Location Encounter Start Date Encounter Closed Date Diagnosis/Indication Diagnosis SNOMED-CT Code Diagnosis ICD10 Code Diagnosis Note [id number] Adrianna Askew NP [facility] [address] [address] 02/09/2022 13:55:45 02/09/2022 15:30:55 Dark stools 12523236 R19.5 - Colonoscop y scheduled- advised Bismuth and iron supplement s also can give stool the appearance of being dark Heartburn 34878375 R12 -Stop taking NSAIDs-Slim id alcohol, NSAIDS, or trigger foods-Omep razole BID x 12 weeks. Consider decreasing to once daily at follow up.- EGD scheduled [id number] Adrianna Askew NP [facility] [address] [address] 05/05/2022 11:08:57 05/05/2022 11:23:02 Gastritis 3625944 K29.70 - continue omeprazole once daily- stay upright 30-60 minutes after eating- avoid trigger/fo ods- also discussed results of EGD colonoscop y. Patient verbalized Health Concerns Section Related Observation LastModified by Organization Detai ls LastModified Time None Recorded Concern Status LastModified by Organization Details LastModified Time None Recorded Advance Directives Directive None Recorded Payers Insurance Date Sequence Insurance Name Policy Number Policy Justin Covered Member ID Justin Member ID Guarantor Name 05/12/2022 1 [place] [id number] Renu Desouza [id number] Renu Desouza Notes Date Note Type Note Provider Name and Address Organization Details Recorded Time 02/09/2022 text/html Patient is a 36 year old female referred to our office by Dr Barragan in [place]. Reports black stool, intermittent dysphagia. Reports heartburn and nausea. Denies hematemesis or vomiting. Denies constipation. Reports stool is typically loose. Still has gall bladder. Does not take Iron supplements or Bismuth. Takes Aleve 8 tablets daily. Adrianna Askew NP [address], [place], [address], [facility] 02/09/2022 16:23:09 05/05/2022 text/html (02/09/22)Sena t is a 36 year old female referred to our office by Dr Barragan in [place]. Reports black stool, intermittent dysphagia. Reports heartburn [...] and evaluation. Adrianna Askew NP [address], [place], [address], [facility] 05/05/2022 11:30:07 OBGyn Episode No OBEpisode recorded.
--- NOTE | 2024-09-05 16:30 | MM_ITS ---
PROCEDURE INFORMATION: Exam: MG Bilateral Screening 3D Mammography Exam date and time: 09/05/2024 4:20 PM Age: 39 years old Clinical indication: Screening mammogram TECHNIQUE: Imaging protocol: Bilateral Screening tomosynthesis and 2D mammography including computer-aided detection (CAD) when performed. COMPARISON: No relevant prior studies available. FINDINGS: MAMMOGRAPHY: Breast composition: The breast is heterogeneously dense, which may obscure small masses. Mass: None. Architectural distortion: No new or suspicious architectural distortion. Calcifications: No new or suspicious calcifications are present Asymmetric density: No new or suspicious asymmetric density is present Skin thickening: None. Axillary adenopathy: None. IMPRESSION: No mammographic evidence of malignancy. Recommend annual screening mammography unless otherwise clinically indicated. ASSESSMENT: BI-RADS category 1: Negative.
== END 2024-09-05 23:59 | disposition home or self-care (01) ==
LOC: RAD 16:16
PROVIDERS: Visit Provider Nurse Practitioner Family
DX: Z12.31 Encounter for screening mammogram for malignant neoplasm of breast (principal)
CPT/HCPCS: 77063; 77067

== ENCOUNTER 2024-09-09 07:19 | Outpatient (CLI) | payer OTHER, SELFPAY ==
--- OUTSIDE RECORDS SUMMARY | 2024-09-09 07:22 | XMS_ITS | Data Portability ---
Author Organization [place] - [facility] & [place] [facility] Address [address] [place] [address] Care Team Providers Care Director Religious Education Name Role Phone TANYA GUZMAN Referring Provider [phone] TANYA GUZMAN Primary Care Provider [phone] Assessment No assessment recorded. Plan of Treatment Reminders Order Date Submit Date Provider Last Modified By Organization Details Last Modified Time Details Appointments None recorded. Lab None recorded. Referral None recorded. Procedures None recorded. Surgeries None recorded. Imaging None recorded. Medication Orders omeprazole 20 mg capsule,del ayed release [address] [place] [address] Pharmacy, [address] [place] [address], [address], [place], [address], 16:21:59 Patient TargetsNo targets recorded. Patient InstructionsNo [...] Address Organization Details Last Updated DateTime 02/09/2022 87891.15 g 91 /min 112 mm[Hg] 62 mm[Hg] [facility] [place] & [place] 02/09/2022 14:09:27 Social History None recorded. Functional Status None recorded. Mental Status None recorded. Family History Nothing Reported. Medical History No medical history recorded. Gynecological HistoryNo gynecological history recorded. Obstetrics History GPAL:G 0 P 0 0 0 0 Past Encounters Encounter ID Performer Location Encounter Start Date Encounter Closed Date Diagnosis/Indication Diagnosis SNOMED-CT Code Diagnosis ICD10 Code Diagnosis Note [id number] Adrianna Askew NP [facility] [address] [address] 02/09/2022 13:55:45 02/09/2022 15:30:55 Dark stools 07112192 R19.5 - Colonoscop y scheduled- advised Bismuth and iron supplement s also can give stool the appearance of being dark Heartburn 77679406 R12 -Stop taking NSAIDs-Slim id alcohol, NSAIDS, or trigger foods-Omep razole BID x 12 weeks. Consider decreasing to once daily at follow up.- EGD scheduled [id number] Adrianna Askew NP [facility] [address] [address] 05/05/2022 11:08:57 05/05/2022 11:23:02 Gastritis 7645823 K29.70 - continue omeprazole once daily- stay [...] Name 05/12/2022 1 [place] [id number] Renu Desouza [id number] Renu Desouza Notes Date Note Type Note Provider Name and Address Organization Details Recorded Time 02/09/2022 text/html Patient is a 36 year old female referred to our office by Dr Barragan in [place]. Reports black stool, intermittent dysphagia. Reports heartburn and nausea. Denies hematemesis or vomiting. Denies constipation. Reports stool is typically loose. Still has gall bladder. Does not take Iron supplements or Bismuth. Takes Aleve 8 tablets daily. Adrianna Askew NP [address], [place], [address], [facility] 02/09/2022 16:23:09 05/05/2022 text/html (02/09/22)Sena t is a 36 year old female referred to our office by Dr Barragan in [place]. Reports black stool, intermittent dysphagia. Reports heartburn [...] evaluation. Adrianna Askew NP [address], [place], [address], [facility] 05/05/2022 11:30:07 OBGyn Episode No OBEpisode recorded.
--- NOTE | 2024-09-09 07:30 | US_ITS ---
FINAL REPORT CLINICAL HISTORY: ABD PAIN-- HN/V FINDINGS: RIGHT UPPER QUADRANT ULTRASOUND Technique: Ultrasound images of the right upper quadrant were obtained. Limited images of the liver parenchyma is normal in echogenicity. The gallbladder is well visualized and the wall appears normal. There are no gallstones. Common duct measures 6 mm. The right kidney is unremarkable. IMPRESSION: Common duct is in the upper limits of normal in size. Reviewed, Interpreted and Dictated by Nitesh Davison MD Transcribed by Chrissy Villa Authenticated and . [facility]
== END 2024-09-09 23:59 | disposition home or self-care (01) ==
PROVIDERS: PCP Nurse Practitioner Family; Visit Provider Nurse Practitioner Family
DX: R11.2 Nausea with vomiting, unspecified (principal); R10.10 Upper abdominal pain, unspecified
CPT/HCPCS: 76705

== ENCOUNTER 2024-09-26 14:59 | Outpatient (CLI) | payer OTHER, SELFPAY ==
--- NOTE | 2024-09-26 | CA_ITS ---
APPROVED REPORT EXAM: Comprehensive 2D, Doppler, and color-flow Echocardiogram Head Of Loss Prevention: Lyudmila Sifuentes RVT Ht: 5 ft 5 in Wt: 169lbs BSA: 1.84 BP: 116/51 mmHg Indications: Dyspnea, palpitations 2D Dimensions LA Volume 35.40 mL LA Volume Index 19.24 mL/m2 (M/F) 16-34 M-Mode Dimensions RVDd 2.43 cm (0.9-2.6) LA Diam 3.43 cm (1.9-4.0) LVDd 5.66 cm (3.5-5.7) LVDs 3.95 cm (3.5-5.7) IVSd 1.10 cm (0.6-1.1) PWd 0.30 cm (0.6-1.1) EF (Teich) 56.90% FS 30.20% EDV (Teich) 157.50 mL TAPSE 2.36 (<1.7) ESV (Teich) 67.90 mL LV Diastology E Decel Time 223 (160-240 msec) E/A Ratio 1.4 Aortic Valve CAROL Index 1.35 cm2/m2 AoV Peak Regino. 127.0 (50-130 cm/s) AO Peak GR. 6.40 mmHg AO Mean GR. 3.80 (<5 mmHg) AO VTI 28.9 (18-25 cm) CAROL (VTI) 2.55 (2.5-4.5 cm2) Mitral Valve MV E Max Regino. 78.0 (40-130 cm/s) MV A Velocity 57.0 (40-130 cm/s) E/A Ratio 1.36 MV PHT 65.0 ms Pulmonary Valve PV Peak Velocity 69.0 (50-150 cm/s) Tricuspid Valve TR P. Velocity 251.00 cm/s RAP Estimate 10.00 mmHg RVSP 35.20 mmHg Left Ventricle The left ventricle is normal size. The left ventricular systolic function is normal. The left ventricular ejection fraction is within the normal range. There is normal left ventricular wall thickness. There is normal LV segmental wall motion. The left ventricular diastolic function is normal. LVEF is 55%. Right Ventricle Right ventricle is mildly dilated. Right ventricle is mildly hypokinetic. Atria The left atrium size is normal. The right atrium size is normal. There is no Doppler evidence of interatrial shunt. Aortic Valve The aortic valve opens well. There is no aortic valvular stenosis. No aortic regurgitation is present. Mitral Valve The mitral valve is normal in structure. No evidence of mitral valve stenosis. Trace mitral regurgitation. Tricuspid Valve Tricuspid valve is grossly normal in structure and function. Mild tricuspid regurgitation. RVSP 20-25 mmHg. Pulmonic Valve The pulmonary valve is normal in structure. Trace pulmonic regurgitation. Great Vessels The aortic root is normal in size. IVC is normal in size and collapses >50% with inspiration. Pericardium There is no pericardial effusion. Other Information Study Quality: Fair Conclusion Normal LV systolic function. Mild RV dilation with mild reduction in RV function. Mild TR. Further evaluation for mild RV dysfunction is suggested, including a limited TTE + agitated saline administration for evaluation of interatrial shunt. Electronically signed by : Ailyn Beauchamp MD 10/06/2024 23:41:14
--- OUTSIDE RECORDS SUMMARY | 2024-09-26 15:01 | XMS_ITS | Data Portability ---
Author Organization [place] - [facility] & [place] [facility] Address [address] [place] [address] Care Team Providers Care Personal Care Assistant Name Role Phone TANYA GUZMAN Referring Provider TANYA GUZMAN Primary Care Provider Assessment No assessment recorded. Plan of Treatment Reminders Order Date Submit Date Provider Last Modified By Organization Details Last Modified Time Details Appointments None recorded. Lab None recorded. Referral None recorded. Procedures None recorded. Surgeries None recorded. Imaging None recorded. Medication Orders omeprazole 20 mg capsule,del ayed release [address] [place] [address] Pharmacy, [address] [place] [address], [address], [place], [address], 16:21:59 Patient TargetsNo targets recorded. Patient InstructionsNo [...] Address Organization Details Last Updated DateTime 02/09/2022 65217.15 g 91 /min 112 mm[Hg] 62 mm[Hg] [facility] [place] & [place] 02/09/2022 14:09:27 Social History None recorded. Functional Status None recorded. Mental Status None recorded. Family History Nothing Reported. Medical History No medical history recorded. Gynecological HistoryNo gynecological history recorded. Obstetrics History GPAL:G 0 P 0 0 0 0 Past Encounters Encounter ID Performer Location Encounter Start Date Encounter Closed Date Diagnosis/Indication Diagnosis SNOMED-CT Code Diagnosis ICD10 Code Diagnosis Note [id number] Adrianna Askew NP [facility] [address] [address] 02/09/2022 13:55:45 02/09/2022 15:30:55 Dark stools 12829187 R19.5 - Colonoscop y scheduled- advised Bismuth and iron supplement s also can give stool the appearance of being dark Heartburn 04164904 R12 -Stop taking NSAIDs-Slim id alcohol, NSAIDS, or trigger foods-Omep razole BID x 12 weeks. Consider decreasing to once daily at follow up.- EGD scheduled [id number] Adrianna Askew NP [facility] [address] [address] 05/05/2022 11:08:57 05/05/2022 11:23:02 Gastritis 4833128 K29.70 - continue omeprazole once daily- stay [...] Justin Member ID Guarantor Name 05/12/2022 1 [place] [id number] Renu Desouza [id number] Renu Desouza Notes Date Note Type Note Provider Name and Address Organization Details Recorded Time 02/09/2022 text/html Patient is a 36 year old female referred to our office by Dr Barragan in [place]. Reports black stool, intermittent dysphagia. Reports heartburn and nausea. Denies hematemesis or vomiting. Denies constipation. Reports stool is typically loose. Still has gall bladder. Does not take Iron supplements or Bismuth. Takes Aleve 8 tablets daily. Adrianna Askew NP [address], [place], [address], [facility] & [place] 02/09/2022 16:23:09 05/05/2022 text/html (02/09/22)Sena t is a 36 year old female referred to our office by Dr Barragan in [place]. Reports black stool, intermittent dysphagia. Reports heartburn [...] evaluation. Adrianna Askew NP [address], [place], [address], [facility] 05/05/2022 11:30:07 OBGyn Episode No OBEpisode recorded.
== END 2024-09-26 23:59 | disposition home or self-care (01) ==
LOC: RT 15:00
PROVIDERS: PCP Nurse Practitioner Family; Visit Provider Nurse Practitioner
DX: I07.1 Rheumatic tricuspid insufficiency (principal); I49.1 Atrial premature depolarization; I49.3 Ventricular premature depolarization; I49.8 Other specified cardiac arrhythmias; E16.2 Hypoglycemia, unspecified
CPT/HCPCS: 93306

== ENCOUNTER 2024-12-30 21:04 | Emergency (ER) | payer OTHER, SELFPAY ==
--- NOTE | 2024-12-30 21:11 | ED_ITS ---
<Statement entered by Dirk Mauricio MD - 12/31/24 00:19> I was consulted by the MICHAEL, and we discussed the complexity of the problems being addressed. I approve the treatment and management plan for this patient's care in the emergency department, thus performing a substantive portion of the medical decision making. Patient is COVID +, which explains the symptomatology. She has remained hemodynamically stable throughout her ED visit and is felt that she is appropriate for discharge at this time. Return precautions were given. Dirk Mauricio MD Discharge Plan Disposition Patient Disposition: Home, Self-Care Prescriptions Prescriptions: No Action ascorbic acid (vitamin C) 500 mg tablet 500 mg PO DAILY zinc gluconate 50 mg tablet 50 mg PO DAILY cholecalciferol (vitamin D3) 25 mcg (1,000 unit) capsule 50 mcg PO DAILY omeprazole 20 mg capsule,delayed release(DR/EC) 20 mg PO DAILY Qty: 30 2RF buspirone 7.5 mg tablet 7.5 mg PO BID Qty: 60 2RF cyclobenzaprine 10 mg tablet 10 mg PO HS PRN (Reason: muscle spasm) Qty: 30 0RF amoxicillin-pot clavulanate 875-125 mg tablet 1 tab PO BID Qty: 20 0RF prednisone 10 mg tablets,dose pack See Rx Instructions PO PER PKG DIR 6 Days Qty: 21 0RF Rx Instructions: PO PER PKG DIR propranolol 60 mg capsule,extended release 24 hr See Rx Instructions .ROUTE .COMPLEX Qty: 90 3RF Dose Instruction: TAKE 1 CAPSULE BY MOUTH ONCE DAILY Rx Instructions: TAKE 1 CAPSULE BY MOUTH ONCE DAILY cetirizine [Zyrtec] 10 mg Tablet,Chewable 10 mg PO DAILY ondansetron HCl 4 mg tablet 4 mg PO Q8H PRN (Reason: nausea and vomiting) 4 Days Qty: 12 0RF Referrals Follow up/Referrals: Avis Jain APRN [Primary Care Provider, Medical] - See instructions Activity Restrictions/Add. Instructions Additional Instructions/Restrictions: Increase fluids and rest. Take meds that your doctor gave you today. Also take Tylenol and ibuprofen for pain or fever. Please follow-up with your PCP. Return to ED for any other problems or concerns. Clinical Impressions Clinical Impression: COVID-19 Instructions Patient Instructions: DI for Viral Pharyngitis Print Language Print Language: Burkinan Discharge ED Provider: Dirk Mauricio General Adult HPI <Yani Bustos (ED), [employer] - Last Filed: 12/30/24 22:03> General Chief complaint: Upper Respiratory Infection Stated complaint: Sore throat,bilateral earache Time Seen by Provider: 12/30/24 21:07 History of Present Illness HPI narrative: 39-year-old female presents to the ED for complaint of sore throat ear pain and fever this morning. She went to her PCP and was given amoxicillin and steroids. She said they did not swab her so she wants to be swabbed. Related Data Home Medications ?Medication ?Instructions ?Recorded ?Confirmed cetirizine 10 mg chewable tablet 10 mg PO DAILY allerg ies 03/18/23 12/30/24 (Zyrtec) ascorbic acid (vitamin C) 500 mg 500 mg PO DAILY 08/2512/30/24 tablet cholecalciferol (vitamin D3) 25 50 mcg PO DAILY 12/30/24 mcg (1,000 unit) capsule zinc gluconate 50 mg tablet 50 mg PO DAILY 08/25/24 Previous Rx's ?Medication ?Instructions ?Recorded ondansetron HCl 4 mg tablet 4 mg PO Q8H PRN nausea and 04/21/24 vomiting 4 days #12 tabs buspirone 7.5 mg tablet 7.5 mg PO BID #60 tabs 08/25 omeprazole 20 mg capsule,delayed 20 mg PO DAILY #30 ca ps 08/25/24 release cyclobenzaprine 10 mg tablet 10 mg PO HS PRN muscle sp asm #30 11/07/24 tabs propranolol 60 mg capsule,24 See Rx Instructions .Rout e 11/24/24 hr,extended release .COMPLEX #90 caps amoxicillin 875 mg-potassium 1 tab PO BID #20 tabs 06/24 clavulanate 125 mg tablet prednisone 10 mg tablets in a dose See Rx Instructions PO PER PKG DIR 12/30/24 pack 6 days #21 tabs Allergies Allergy/AdvReac Type Severity Reaction Status Date / Time Sulfa (Sulfonamide Allergy Intermediate I-HIVES Verified 12/30/24 13:55 Antibiotics) PFSH <Yani Bustos (ED), [employer] - Last Filed: 12/30/24 22:03> PFS Disclaimer: The information contained in this section may have been updated after the patient was seen, as this information can be updated by other users. Medical History Abnormal echocardiogram Chest pain Elevated liver enzymes Elevated white blood cell count Palpitations SOB (shortness of breath) Surgical History Hx of hysterectomy Hx of tubal ligation Family History Other Cancer Social History Smoking Status: Current every day smoker tobacco type: cigarettes packs per day: 1 second hand exposure: Yes alcohol intake: current alcohol intake frequency: holidays/special occasions only substance use type: denies use current occupational status: employed Travel in the last 8 weeks?: [place] the [place] household members: spouse and children housing: house current occupation: [employer] current occupational exposures/hazards: No caffeine: Yes Have you lived/traveled outside US in past 30 days?: No Contact w/someone who lives/traveled outside US past 30 days?: No Exposure to someone with infectious disease in past 14 days?: No Do you have a fever (greater than 100.4 F or 38 C)?: No Have you tested positive for COVID-19?: No Exposed to someone with COVID-19 in past 14 days?: No Do you have a sore throat?: No Do you have a cough?: No Do you have any weakness?: No Do you have any diarrhea?: No Are you experiencing any unusual bleeding?: No Do you have any muscle aches/pain?: No Do you have any abdominal pain?: No Are you experiencing loss of taste or smell?: No Other Medical History Have you received the Flu Vaccine for this season: No Have you received the Pneumonia Vaccine: No <Yani Bustos (ED), [employer] - Last Filed: 12/30/24 22:03> ROS Obtained: Yes Systems reviewed as appropriate & no additional complaints except as documented Constitutional Constitutional: Reports as per HPI Physical Exam <Yani Bustos (ED), [employer] - Last Filed: 12/30/24 22:03> General General appearance: alert and in no apparent distress Head Head exam: normocephalic Eye Eye exam: Present PERRL and EOMI ENT ENT exam: Present normal oropharynx and mucous membranes moist Neck Neck exam: Present full ROM and trachea midline Respiratory Respiratory exam: Present normal lung sounds bilaterally Cardiovascular Cardiovascular exam: Present regular rate, normal rhythm, normal heart sounds, +S1 and +S2 Abdominal Exam Abdominal exam: Present soft and normal bowel sounds Extremities Exam Extremities exam: Present full ROM and normal capillary refill Neurological Exam Neurological exam: Present alert, oriented X3 and normal gait Skin Skin exam: Present warm, dry and intact Medical Decision Making <Yani Bustos (ED), [employer] - Last Filed: 12/30/24 22:03> Medical Records Screening: Per USPSTF and CDC recommendations, given the prevalence of disease in our region, it is our hospital?s policy to screen for HIV and viral Hepatitis for all patients aged 18 and over and those with ongoing risk factors. Devante Inquiry Pt receiving controlled substance: No Devante was queried for this patient: No Vital Signs: 12/30/24 21:16 12/30/24 21:19 12/30/24 21:30 Temperature 99.7 F H Temperature Source Oral Pulse Rate 104 H 101 H Pulse Rate [Right] 96 H Respiratory Rate 18 Blood Pressure 141/88 H 133/88 Blood Pressure [Right Arm] 141/88 H Blood Pressure Mean [Right Arm] 105 02 Sat by Pulse Oximetry 97 100 97 Oxygen Delivery Method Room Air 12/30/24 22:37 Temperature 98.1 F Temperature Source Pulse Rate 99 H Pulse Rate [Right] Respiratory Rate 20 Blood Pressure 140/96 H Blood Pressure [Right Arm] Blood Pressure Mean [Right Arm] 02 Sat by Pulse Oximetry Oxygen Delivery Method Room Air Lab Data Lab Results 12/30/24 21:18: Group A Strep Rapid Negative 12/30/24 21:40: SARS-CoV-2 (PCR) Detected A, Influenza A Untype (PCR) Not detected, Influenza Type B (PCR) Not detected Orders (Tests/Meds): ORDERS Category Date Time Status Rapid PCR Covid and Flu A/B Stat Lab 12/30/24 21:40 Completed Rapid Strep Scrn Group A [Strep Scrn Group A (Rapid)] Lab 12/30/24 21:18 Completed Stat Strep Screen Confirmation Stat Micro 12/30/24 21:18 Received Medical Decision Narrative: patient is a 39-year-old female presenting to the emergency department for evaluation of sore throat and ear pain. Patient is hemodynamically stable and nontoxic-appearing upon arrival, afebrile. Differential diagnosis includes COVID, strep, flu, among others. Workup will be conducted with strep, flu and COVID swabs. Her PCP gave her amoxicillin and prednisone today but she says she feels worse than she did earlier. She has had a fever today as well. Strep is negative awaiting flu and COVID results <Dirk Mauricio MD - Last Filed: 12/31/24 00:23> Vital Signs: 12/30/24 21:16 12/30/24 21:19 12/30/24 21:30 Temperature 99.7 F H Temperature Source Oral Pulse Rate 104 H 101 H Pulse Rate [Right] 96 H Respiratory Rate 18 Blood Pressure 141/88 H 133/88 Blood Pressure [Right Arm] 141/88 H Blood Pressure Mean [Right Arm] 105 02 Sat by Pulse Oximetry 97 100 97 Oxygen Delivery Method Room Air 12/30/24 22:37 Temperature 98.1 F Temperature Source Pulse Rate 99 H Pulse Rate [Right] Respiratory Rate 20 Blood Pressure 140/96 H Blood Pressure [Right Arm] Blood Pressure Mean [Right Arm] 02 Sat by Pulse Oximetry Oxygen Delivery Method Room Air Lab Data Lab Results 12/30/24 21:18: Group A Strep Rapid Negative 12/30/24 21:40: SARS-CoV-2 (PCR) Detected A, Influenza A Untype (PCR) Not detected, Influenza Type B (PCR) Not detected Orders (Tests/Meds): ORDERS Category Date Time Status Rapid PCR Covid and Flu A/B Stat Lab 12/30/24 21:40 Completed Rapid Strep Scrn Group A [Strep Scrn Group A (Rapid)] Lab 12/30/24 21:18 Completed Stat Strep Screen Confirmation Stat Micro 12/30/24 21:18 Received Critical Care <Dirk Mauricio MD - Last Filed: 12/31/24 00:23> Critical Care Time Critical Care Time: No
[2024-12-30 21:16] VITALS: BP 141/88; PULSE 104; O2SAT 97
--- OUTSIDE RECORDS SUMMARY | 2024-12-30 21:18 | XMS_ITS | Clinical Summary ---
Author Organization [facility] Address [address] [place] [address] Care Team Providers Care [employer] Name Role Phone Avis Jain APRN Primary Care Provider + [phone] Allergies Active Allergy Reactions Criticality Noted Date Comments Sulfa Antibiotics Anaphylaxis High 09/04/2016 Medications Cetirizine HCl (ZYRTEC PO) Take 1 tablet by mouth Daily. Active Active Problems Problem Noted Date Diagnosed Date Psoriasis 11/27/2023 Assessment & Plan (08/14/2024 11:04 AM EDT): [facility]. Diagnosed with psoriasis in the 3rd grade She does have psoriasis of her scalp, stomach and legs. Treated with topical steroids per Dermatology Assessment & Plan (04/08/2024 2:13 PM EST): [facility]. Diagnosed with psoriasis in the 3rd grade Worsening in scalp Treated with topical steroids per Dermatology Assessment & Plan (11/27/2023 2:12 PM EDT): [facility]. Diagnosed with psoriasis in the 3rd grade Active psoriasis scalp and scattered arm Treated with topical steroids per Dermatology High risk medication use 11/27/2023 Assessment & Plan (08/14/2024 11:05 AM EDT): She has chosen not to start biologic therapy. Assessment & Plan (04/07/2024 12:44 PM EST): Skyrizi Hepatitis panel - 04/05/2022 QuantiFERON updated 11/27/2023 We discussed biologic agents at length. Risks and alternative were discussed at length and the option of no treatment was also given. We discussed risks including but not limited to infections which can be unusual, severe, and deadly. When possible, these agents should be stopped immediately if infections occur. Unusual infection such as TB and fungal infections can occur. There may be an increased risk of lymphoma with these agents. Other risks can include are multiple sclerosis like illness and worsening of the failure. Infusion or injection reactions whish can be delay have been reported. Reactivation of daily brain virus hepatitis viruses have been reported. Worsening of COPD has been seen with Orencia. Elevated lipids, elevations in liver functions, and dangerous changes in blood counts have been seen with certain agents. Regular monitoring will be required. Assessment & Plan (11/27/2023 3:39 PM EDT): Skyrizi Hepatitis panel - 04/05/2022 QuantiFERON updated 11/27/2023 We discussed biologic agents at length. Risks and alternative were discussed at length and the option of no treatment was also given. We discussed risks including but not limited to infections which can be unusual, severe, and deadly. When possible, these agents should be stopped immediately if infections occur. Unusual infection such as TB and fungal infections can occur. There may be an increased risk of lymphoma with these agents. Other risks can include are multiple sclerosis like illness and worsening of the failure. Infusion or injection reactions whish can be delay have been reported. Reactivation of daily brain virus hepatitis viruses have been reported. Worsening of COPD has been seen with Orencia. Elevated lipids, elevations in liver functions, and dangerous changes in blood counts have been seen with certain agents. Regular monitoring will be required. Chronic left shoulder pain 11/27/2023 Assessment & Plan (08/12/2024 8:11 AM EDT): Status post left shoulder steroid injection [facility] 04/04/22 MRI left shoulder 04/01/22: Partial thickness articular surface tear of the supraspinatus tendon greater than 50%. Probable small nondisplaced fracture of the greater tuberosity with adjacent bone marrow edema. However, focal osteonecrosis could have similar appearance. Mild AC joint arthrosis with moderate subacromial/subdeltoid bursitis. Ibuprofen upset her stomach -Follow-up [facility] Assessment & Plan (04/07/2024 12:44 PM EST): Status post left shoulder steroid injection [facility] 04/04/22 MRI left shoulder 04/01/22: Partial thickness articular surface tear of the supraspinatus tendon greater than 50%. Probable small nondisplaced fracture of the greater tuberosity with adjacent bone marrow edema. However, focal osteonecrosis could have similar appearance. Mild AC joint arthrosis with moderate subacromial/subdeltoid bursitis. Ibuprofen upset her stomach -Follow-up [facility] Assessment & Plan (11/27/2023 3:39 PM EDT): Status post left shoulder steroid injection [facility] 04/04/22 MRI left shoulder 04/01/22: Partial thickness articular surface tear of the supraspinatus tendon greater than 50%. Probable small nondisplaced fracture of the greater tuberosity with adjacent bone marrow edema. However, focal osteonecrosis could have similar appearance. Mild AC joint arthrosis with moderate subacromial/subdeltoid bursitis. Ibuprofen upset her stomach -Follow-up [facility] Psoriatic arthritis of multiple joints Assessment & Plan (08/14/2024 11:04 AM EDT): with 3 children. Ages 15, 15, 9 Dx psoriasis in the 3rd grade. +Psoriasis involving scalp + Dactylitis finger hx, + HLA-B27 Chronic joint pain hands, enthesitis elbows, chronic left shoulder pain, right hip pain, back pain knee pain Current: Ana CHAN 11/27/23 (denied) Prior Otezla 04/20-11/20 (no help) Prior ibuprofen upset stomach-follows with GI Dr. Watts/[facility]. Suspect psoriatic arthritis with psoriasis. HLA-B27 positive. She has active psoriasis in her scalp. 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 She reports chronic pain hips, knees, hands - She was denied Skyrizi due to not trying/failing DMARD - She has since failed Plaquenil. - Yusimry was approved 05/2024, but even with assistance it was unaffordable. Patient was not comfortable with side effects. - She has a family history of lupus. - She is using natural remedies and is feeling better. - Ankle pain and achilles pain is improving. - She does have trouble opening jars at some time, her hand will cramp. - She does have occasional joint swelling, but no joint pain unless weather is changing. -Labs ordered as below Follow-up in clinic 4 months Assessment & Plan (04/08/2024 2:13 PM EST): with 3 children. Ages 17, 15, 9 Dx psoriasis in the 3rd grade. +Psoriasis involving scalp + Dactylitis finger hx, + HLA-B27 Chronic joint pain hands, enthesitis elbows, chronic left shoulder pain, right hip pain, back pain knee pain Current: Ana CHAN 11/27/23 (denied) Prior Otezla 04/20-11/20 (no help) Prior ibuprofen upset stomach-follows with GI Dr. Watts/[facility]. Suspect psoriatic arthritis with psoriasis. HLA-B27 positive. She has active psoriasis in her scalp. 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 She reports chronic pain hips, knees, hands - She was denied Skyrizi due to not trying/failing DMARD - She has now failed Plaquenil. Will will try to ROCIO Tanneryrmadison again - ROCIO Perez again since she failed Plaquenil - worsening achilles/ankle pain and shoulder pain -Labs ordered as below Follow-up in clinic 4 months Assessment & Plan (11/27/2023 3:39 PM EDT): with 3 children. Ages 15, 15, 9 Dx psoriasis in the 3rd grade. +Psoriasis involving scalp + Dactylitis finger hx, + HLA-B27 Chronic joint pain hands, enthesitis elbows, chronic left shoulder pain, right hip pain, back pain knee pain Current: Skyrizi PA 11/27/23 Prior Otezla 04/20-11/20 (no help) Prior ibuprofen upset stomach-follows with GI Dr. Watts/[facility]. Suspect psoriatic arthritis with psoriasis. HLA-B27 positive. She has active psoriasis in her scalp. 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 She reports chronic pain hips, knees, hands She has been intolerant to ibuprofen recently due to GI distress -Otezla no longer helping so will stop it -Prior auth Skyrizi injection to replace Otezla -Handout given skyrizi -X-rays today hands, hips -Labs ordered as below Follow-up in clinic 4 months Smoker 09/04/2016 Mild dysplasia of cervix 09/04/2016 Overview (09/04/2016): April 2014: Biopsies consistent with mild dysplasia November 2014: Cervical biopsies consistent with mild dysplasia Annual [employer] exam w/o problem 08/13/2016 Overview (09/04/2016): SCREENING TESTS Year 2011 2012 2013 2014 2016 2017 2018 2018 2019 2020 2021 2022 2023 2024 2025 2026 2027 2028 2029 2030 Age 31 PAP 1-ASCUS 8 9 HPV high risk 1- non 16/18 (+) KENNEDY [Birads] MARLYN score Colonoscopy DEXA [T-score] Frax [hip/any] Lipids [LDL / HDL / TG] Vitamin D Ovarian Screen Enter the month test was performed. 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[facility] Other info: Depression 04/30/2014 Anxiety attack Immunizations Immunization Administration Dates Next Due COVID-19 (MODERNA) 12YRS+ (SPIKEVAX) 03/23/2021, 06/18/2020,05/20/2020 DTaP, Unspecified 11/30/1988, 6,06/25/1984,1983,01/09/1984 Hepatitis A 04/02/2018,09/14/2017 Hepatitis B Adult/Adolescent IM 07/13/1999,02/07,01/06/1999 MMR 11/20/1994,06/25/1984 Polio, Unspecified 11/30/1988, 5,03/18/1984,1983 Td (TDVAX) 01/06/1999 Tdap 10/23/2007 Family History Medical History Relation Name Comments Ovarian cancer Maternal Grandmother Relation Name Status Comments Maternal Grandmother Social History Tobacco Use Types Packs/Day Years Used Date Smoking Tobacco: Every Day Cigarettes 1.5 30.7 Started: 1994 Smokeless Tobacco: Never Alcohol Use Standard Drinks/Week Comments Yes 0 (1 standard drink = 0.6 oz pur e alcohol) Comments No Sex and Gender Information Value Date Recorded Sex Assigned at Not on file Legal Sex Female 3:42 PM EDT Gender Identity Not on file Sexual Orientation Not on file Last Filed Vital Signs Vital Sign Reading Time Taken Comments Blood Pressure 124/72 08/14/2024 10:39 AM EDT Pulse 75 08/14/2024 10:39 AM EDT Temperature 36.6 C (97.9 F) 08/14/2024 10:39 AM EDT Respiratory Rate 14 07/07/2019 1:27 PM EDT Oxygen Saturation 97% 07/07/2019 1:27 PM EDT Inhaled Oxygen Concentration - - Weight 76.5 kg (168 lb 11.2 oz) 025 10:39 AM EDT Height 163.8 cm (5' 4.49 ) 08/14/2024 1 0:39 AM EDT Body Mass Index 28.52 08/14/2024 10:39 AM EDT Plan of Treatment Upcoming Encounters Date Type Department Care Team (Late st Contact Info) Description 02/02/2025 4:15 PM EDT Office Visit [facility] [address] [phone] Jam Melo MD [address] [address] Health Maintenance Due Date Last Done Comments Pneumococcal Vaccine 0-49 (1 of 2 - PCV) 2002 ANNUAL PHYSICAL 09/04/2016 Annual Gynecologic Pelvic an d Breast Exam 09/05/2017 09/04/2016 TDAP/TD VACCINES (3 - Td or Tdap) 10/22/2017 008, 01/06/1999 MAMMOGRAM 2023 COVID-19 Vaccine ( - season) 2023 03/23/2021, 06/18/2020, 05/20/2020 INFLUENZA VACCINE 01/28/2025 HEPATITIS C SCREENING Completed 11/27/2023 Procedures Procedure Name Priority Date/Time Associated Diagnosis Comments HEPATITIS PANEL, ACUTE Routine 11/27/2023 3:11 PM EDT Psoriatic arthritis of multiple joints High risk medication use Other fatigue SCANNED - PAP SMEAR 09/04/2016 from Last 3 Months or Most Recently Relevant to Health Maintenance Results * Hepatitis Panel, Acute (11/27/2023 3:11 PM EDT) Hepatitis B Surface Ag Non-Reacti ve Non-Reacti ve 11/28/2023 12:09 AM EDT [facility] Hep A IgM Non-Reacti ve Non-Reacti ve 11/28/2023 12:09 AM EDT [facility] Hep B C IgM Non-Reacti ve Non-Reacti ve 11/28/2023 12:09 AM EDT [facility] Hepatitis C Ab Non-Reacti ve Non-Reacti ve 11/28/2023 12:09 AM EDT [facility] Blood Venipuncture / Unknown 11/27/2023 3:11 PM EDT 11/27/2023 3:12 PM EDT Narrative [facility] - 11/28/2023 12:09 AM EDT Results may be falsely decreased if patient taking Biotin. us Jam Melo MD LAB BLOOD ORDERABLES Final Result [facility]
[address] [place] [address], * SCANNED - PAP SMEAR (09/04/2016) Bonifacio Montalvo MD CHART REVIEW TABS Final Re sult from Last 3 Months or Most Recently Relevant to Health Maintenance Insurance Howard FENTON [address] COMMERCIAL Care Teams [employer] Relationship Specialty Start Date End Date Avis Jain APRN [facility] [address] [address] PCP - General Internal Medicine 11/27/23
[2024-12-30 21:19] VITALS: BP 141/88; PULSE 96; RESP 18; TEMP 37.6; O2SAT 100; BMI 28.8
[2024-12-30 21:30] VITALS: BP 133/88; PULSE 101; O2SAT 97
[2024-12-30 21:40] LABS: Strep Scrn Group A (Rapid) Negative (Negative)
[2024-12-30 21:43] LABS: Influenza A, PCR Not Detected (NotDetected); Influenza B, PCR Not Detected (NotDetected)
[2024-12-30 22:21] LABS: Coronavirus 19, PCR Detected (NotDetected)
[2024-12-30 22:37] VITALS: BP 140/96; PULSE 99; RESP 20; TEMP 36.7; O2SAT 97
== END 2024-12-30 22:44 | disposition home or self-care (01) ==
PROVIDERS: Nurse Practitioner; Emergency Provider Student in an Organized Health Care Education/Training Program; PCP Nurse Practitioner Family
DX: U07.1 COVID-19 (principal)
CPT/HCPCS: 87430; 87636; 99283

== ENCOUNTER 2025-01-15 14:54 | Outpatient (CLI) | payer OTHER, SELFPAY ==
--- OUTSIDE RECORDS SUMMARY | 2025-01-15 14:56 | XMS_ITS | Clinical Summary ---
Author Organization [facility] Address [address] [place] [address] Care Team Providers Care Ice Skating Instructor Name Role Phone Avis Jain APRN Primary Care Provider + [phone] Allergies Active Allergy Reactions Criticality Noted Date Comments Sulfa Antibiotics Anaphylaxis High 09/04/2016 Medications Cetirizine HCl (ZYRTEC PO) Take 1 tablet by mouth Daily. Active Active Problems Problem Noted Date Diagnosed Date Psoriasis 11/27/2023 Assessment & Plan (08/14/2024 11:04 AM EDT): [facility]. Diagnosed with psoriasis in the 3rd grade She does have psoriasis of her scalp, stomach and legs. Treated with topical steroids per Dermatology Assessment & Plan (04/08/2024 2:13 PM EST): [facility]. Diagnosed with psoriasis in the 3rd grade Worsening in scalp Treated with topical steroids per Dermatology Assessment & Plan (11/27/2023 2:12 PM EDT): [facility]. Diagnosed with psoriasis in the [...] EDT): Status post left shoulder steroid injection [facility] 04/04/22 MRI left shoulder 04/01/22: Partial thickness articular surface tear of the supraspinatus tendon greater than 50%. Probable small nondisplaced fracture of the greater tuberosity with adjacent bone marrow edema. However, focal osteonecrosis could have similar appearance. Mild AC joint arthrosis with moderate subacromial/subdeltoid bursitis. Ibuprofen upset her stomach -Follow-up [facility] orth[facility] Assessment & Plan (04/07/2024 12:44 PM EST): Status post left shoulder steroid injection [facility] 04/04/22 MRI left shoulder 04/01/22: Partial thickness articular surface tear of the supraspinatus tendon greater than 50%. Probable small nondisplaced fracture of the greater tuberosity with adjacent bone marrow edema. However, focal osteonecrosis could have similar appearance. Mild AC joint arthrosis with moderate subacromial/subdeltoid bursitis. Ibuprofen upset her stomach -Follow-up [facility] Assessment & Plan (11/27/2023 3:39 PM EDT): Status post left shoulder steroid injection [facility] 04/04/22 MRI left shoulder 04/01/22: Partial thickness articular surface tear of the supraspinatus tendon greater than 50%. Probable small nondisplaced fracture of the greater tuberosity with adjacent bone marrow edema. However, focal osteonecrosis could have similar appearance. Mild AC joint arthrosis with moderate subacromial/subdeltoid bursitis. Ibuprofen upset her stomach -Follow-up [facility] Psoriatic arthritis of multiple joints Assessment & [...] Prior ibuprofen upset stomach-follows with GI Dr. Watts/[facility]. Suspect psoriatic arthritis with psoriasis. [...] Prior ibuprofen upset stomach-follows with GI Dr. Watts/[facility]. Suspect psoriatic arthritis with psoriasis. [...] Prior ibuprofen upset stomach-follows with GI Dr. Watts/[facility]. Suspect psoriatic arthritis with psoriasis. 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 [employer] Other info: Depression 04/30/2014 Anxiety attack Immunizations [...] Description 02/02/2025 4:15 PM EDT Office Visit [facility] [address] [address] Jam Melo MD [address] [address] Health Maintenance Due Date Last Done Comments Pneumococcal Vaccine 0-49 (1 of 2 - PCV) 2002 ANNUAL PHYSICAL 09/04/2016 Annual Gynecologic Pelvic an d Breast Exam 09/05/2017 09/04/2016 TDAP/TD VACCINES (3 - Td or Tdap) 10/22/2017 008, 01/06/1999 MAMMOGRAM 2023 COVID-19 Vaccine ( - season) 2024 03/23/2021, 06/18/2020, 05/20/2020 INFLUENZA VACCINE 01/28/2025 HEPATITIS [...] ve Non-Reacti ve 11/28/2023 12:09 AM EDT [facility] Hep A IgM Non-Reacti ve Non-Reacti ve 11/28/2023 12:09 AM EDT [facility] Hep B C IgM Non-Reacti ve Non-Reacti ve 11/28/2023 12:09 AM EDT [facility] Hepatitis C Ab Non-Reacti ve Non-Reacti ve 11/28/2023 12:09 AM EDT [facility] Blood Venipuncture / Unknown 11/27/2023 3:11 PM EDT 11/27/2023 3:12 PM EDT Narrative [facility] - 11/28/2023 12:09 AM EDT Results may be falsely decreased if patient taking Biotin. us Jam Melo MD LAB BLOOD ORDERABLES Final Result [facility]
[address] [facility] [address], * SCANNED - PAP SMEAR (09/04/2016) Bonifacio Montalvo MD CHART REVIEW TABS Final Re sult from Last 3 Months or Most Recently Relevant to Health Maintenance Insurance Howard FENTON [address] COMMERCIAL Care Teams Ice Skating Instructor Relationship Specialty Start Date End Date Avis Jain APRN [facility] [address] [address] PCP - General Internal Medicine 11/27/23
[2025-01-15 15:53] LABS: Hematocrit 37.4 % (37.0-47.0); Hemoglobin 12.5 g/dL (12.2-16.2); Immature Granulocytes % 0.3 %; Mean Corpuscular HGB Conc 33.4 g/dL (31.8-35.4); Mean Corpuscular Hemoglobin 30.9 pg (27.0-31.2); Mean Corpuscular Volume 92.3 fl (81-99); Nucleated Red Blood Cells % 0 %; Platelet Count 242 K/mm3 (142-424); Red Blood Count 4.05 M/mm3 (4.20-5.40); Red Cell Distribution Width-SD 47.1 fL; White Blood Count 9.4 K/mm3 (4.8-10.8)
[2025-01-15 16:44] LABS: Alanine Aminotransferase 24 U/L (12-78); Albumin Level 3.9 g/dl (3.5-5.0); Alkaline Phosphatase 66 U/L (38-126); Anion Gap 11.0 mEq/L (5-15); Aspartate Amino Transferase 28 U/L (14-36); Bilirubin,Direct 0.1 mg/dl (0.0-0.4); Bilirubin,Indirect 0.2 mg/dL (0.0-0.9); Bilirubin,Total 0.3 mg/dl (0.2-1.3); Bilirubin,Unconjugated 0.1 mg/dL (0.0-1.1); Blood Urea Nitrogen 7 mg/dl (7-17); Calcium 8.9 mg/dl (8.4-10.2); Carbon Dioxide 25 mmol/L (22.0-30.0); Chloride 107 mmol/L (98-107); Cholesterol 198 mg/dl (140-200); Creatinine,Serum 0.60 mg/dl (0.52-1.04); Estimated Glomerular Filt Rate 110 ml/min (>60); GFR (African American) 133 ML/MIN (>60); Glucose 110 mg/dl (74-100); HDL Cholesterol 39 mg/dl (40-60); Magnesium 1.7 mg/dl (1.6-2.3); Potassium 4.0 mmoL/L (3.5-5.1); Sodium 139 mmol/L (136-145); Total Protein,Serum 6.1 g/dl (6.3-8.2); Triglycerides 292 mg/dl (30-150)
[2025-01-15 17:07] LABS: Free T4 (Free Thyroxine) 0.99 ng/dl (0.78-2.19)
[2025-01-15 17:15] LABS: Thyroid Stimulating Hormone 0.70 uIU/mL (0.465-4.68)
== END 2025-01-15 23:59 | disposition home or self-care (01) ==
LOC: LAB 14:55
PROVIDERS: PCP Nurse Practitioner Family; Visit Provider Nurse Practitioner
DX: I37.1 Nonrheumatic pulmonary valve insufficiency (principal); I51.7 Cardiomegaly; I51.89 Other ill-defined heart diseases; R93.1 Abnormal findings on diagnostic imaging of heart and coronary circulation; R00.2 Palpitations
CPT/HCPCS: 36415; 80048; 80061; 80076; 83735; 84439; 84443; 85025

== ENCOUNTER 2025-02-01 14:36 | Emergency (ER) | payer OTHER, SELFPAY ==
[2025-02-01 14:44] VITALS: BP 139/86; PULSE 68; RESP 16; TEMP 36.8; O2SAT 98; BMI 29.6
--- NOTE | 2025-02-01 14:50 | XR_ITS ---
PROCEDURE INFORMATION: Exam: XR Left Shoulder Exam date and time: 02/01/2025 3:00 PM Age: 39 years old Clinical indication: Injury or trauma; Fall; Blunt trauma (contusions or hematomas); Shoulder; Left TECHNIQUE: Imaging protocol: Radiologic exam of the left shoulder. Views: 2 or more views. COMPARISON: MR SHOULDER LT WO CON 04/01/2022 8:28 AM FINDINGS: Bones/joints: No acute fracture or dislocation. Heart/Mediastinum: Large mediastinal calcifications. Soft tissues: Normal. IMPRESSION: No acute fracture or dislocation.
--- OUTSIDE RECORDS SUMMARY | 2025-02-01 14:54 | XMS_ITS | Clinical Summary ---
Author Organization [facility] Address [address] [place] [address] Phone Care Team Providers Care Pick Up Driver Name Role Phone Kali PURI, Shaggy Cortes Unavailable [phone] JYOTI PALENCIA MD Primary Care Provider [phone] Reason for Visit and Chief Complaint The Chief Complaint is: L shoulder pain Problems Includes: Problems addressed during this encounter and other active Problems All Visits Onset Date Resolved Date Provider Condition S tatus Joint Pain Shoulder Left 04/04/2022 Shaggy Bass MD Active Last Documented On 2 10:14AM ; [facility], [facility] Plan of Treatment Instructions to patient Lose weight Last Documented On 3 2:55PM ; [facility] Assessments Includes: Assessments from this encounter Findings [...] - Last Documented On 08/02/2022 5:04PM ; [facility] 08/01/2022-left shoulder pain today follow-up she has been a 6 out of 10 on the pain scale steroid shot in March once another one and no new trauma injury or falls she is been taking medication for psoriatic arthritis but nothing else has been changed. - Last Documented On 08/02/2022 5:04PM ; [facility] PHYSICAL EXAM - Last Documented On 08/02/2022 5:04PM ; [facility] CONSTITUTIONAL: Well developed, well groomed, well nourished patient in no acute distress who appears stated age, height and weight. - Last Documented On 08/02/2022 5:04PM ; [facility] PSYCHIATRIC: The patient is alert and oriented to person, place, date and situation. Mood and affect are normal for current situation. - Last Documented On 08/02/2022 5:04PM ; [facility] NEUROLOGICAL: Sensation normal bilateral upper and lower extremities. - Last Documented On 08/02/2022 5:04PM ; [facility] LYMPHATIC: No pitting edema noted in the lower extremities. - Last Documented On 08/02/2022 5:04PM ; [facility] SKIN: No lesions noted on upper or lower extremities. Skin is dry, warm and with normal turgor. - Last Documented On 08/02/2022 5:04PM ; [facility] VASCULAR: No swelling in upper or lower extremities other than described below in extremity exam. Radial pulses normal in both upper extremities. - Last Documented On 08/02/2022 5:04PM ; [facility] GAIT AND STATION: Normal gait without assistive devices. Station normal. - Last Documented On 08/02/2022 5:04PM ; [facility] LEFT SHOULDER: No atrophy. tenderness to palpation [...] - Last Documented On 08/02/2022 5:04PM ; [facility] RIGHT SHOULDER: No atrophy. No tenderness to [...] Documented On 08/02/2022 5:04PM ; [facility] Cervical Spine: No tenderness to palpation. No pain with flexion, extension, lateral rotation, or lateral bending of the cervical spine. Negative Spurling sign. - Last Documented On 08/02/2022 5:04PM ; [facility] ASSESSMENT AND PLAN - Last Documented On 08/02/2022 5:04PM ; [facility] Initial visit for left shoulder [...] Documented On 08/02/2022 5:04PM ; [facility] 08/01/2022-patient got a left shoulder injection into the subacromial bursa and joint space and the patient is doing well with that took the injection very well to sterile prep the patient has no other abnormalities dislocations or subluxations that we see on physical examination. Follow-up in 3 months if needed - Last Documented On 08/02/2022 5:04PM ; [facility] LEFT SHOULDER INJECTION-After sterile prep [...] Documented On 08/02/2022 5:04PM ; [facility] Instructions Includes: Instructions from this encounter Instructions to patient Lose weight Last Documented On 3 2:55PM ; [facility] Medical Equipment - Implanted Devices Includes: Current Devices No Medical Equipment Recorded Medications Includes: Medications discussed during this encounter and other current Medications Current Medications (continue as prescribed) Omeprazole 20 MG Oral Capsule Delayed Release 03/26/20 22 Provider: Libra Askew APRN Diagnosis: Last Documented On 3 2:48PM By Arya Peacock ; [facility] Medications Administered Includes: Administered Medications from this encounter No Administered Medications Recorded Vital Signs Includes: Vital Signs from this encounter Vital Name 08/01/2022 02:55P Height (in) 65 Weight (lb) 168 Body Mass Index 28 Body Surface Area 1.8 Note: snb Last Documented: On 08/01/2022 2:56PM ; [facility] Results Includes: Results discussed during this encounter [...] Last Documented On 3 5:04PM ; [facility] Alcohol use 08/01/2022 Last Documented On 3 5:04PM ; [facility] Caffeine use 08/01/2022 Last Documented On 3 5:04PM ; [facility] Exercising regularly 08/01/2022 Last Documented On 3 5:04PM ; [facility] No recent change in diet 08/01/2022 Last Documented On 3 5:04PM ; [facility] Not using drugs 08/01/2022 Last Documented On 3 5:04PM ; [facility] Yes, current smoker. 08/01/2022 Last Documented On 3 5:04PM ; [facility] Smoking Status Unknown Procedures and Surgical History Includes: Procedures from this encounter Procedures Code Diagnosis Performing Provider Service L ocation Service Date use of tobacco assessment performed 1000F Last Documented On 3 2:55PM ; [facility] an X-ray was performed 17993 Last Documented On 3 2:51PM ; [facility] an MRI was performed 50958 Last Documented On 3 2:51PM ; [facility] Surgical History Last Updated History of hysterectomy 08/01/2022 Last Documented On 3 5:04PM ; [facility] Medical History Includes: Medical History addressed during this encounter No Medical History Recorded Family History Includes: Family History addressed during this encounter Description Last Updated Diabetes mellitus 08/01/2022 Last Documented On 3 5:04PM ; [facility] Family history of cancer 08/01/2022 Last Documented On 3 5:04PM ; [facility] Family history of heart disease 08/02/19 23 Last Documented On 3 5:04PM ; [facility] Family history of osteoporosis 3 Last Documented On 3 5:04PM ; [facility] Family history of rheumatoid arthritis 0 08/01/2022 Last Documented On 3 5:04PM ; [facility] Family history of systemic hypertension 08/01/2022 Last Documented On 3 5:04PM ; [facility] Review of Systems Includes: Review of Systems [...] ctive Last Documented On 3 2:49PM ; [facility] Encounters Encounter Provider Location Date Check-In Time Check- Out Time Diagnosis Follow Up Joel Lala PA-C [facility] 3 2:25PM 3:05PM Insurance Includes: Active Insurance Policies Plan Name Member ID Group # Subscriber Relationship Effect jorje Dates 1 - THE uberall [id number] Renu Desouza Self 10/28/2022 - Un known Clinical Notes Includes: Clinical Notes from this encounter * Progress note Date Encounter Last Documented by 08/01/2022 Follow Up Last documented on 08/02/2022; 5:04 PM, Joel Lala PA-C; [facility] Active Problems & Conditions - [...] Care Team - JYOTI PALENCIA MD - MANAGER OF INTERNAL AUDIT
--- OUTSIDE RECORDS SUMMARY | 2025-02-01 14:54 | XMS_ITS | Clinical Summary ---
Author Organization [facility] Address [address] [place] [address] Care Team Providers Care Wool Hat Finisher Name Role Phone Avis Jain APRN Primary Care Provider [phone] Allergies Active Allergy Reactions Criticality Noted Date Comments Sulfa Antibiotics Anaphylaxis High 09/04/2016 Medications Cetirizine HCl (ZYRTEC PO) Take 1 tablet by mouth Daily. Active Active Problems Problem Noted Date Diagnosed Date Psoriasis 11/27/2023 Assessment & Plan (08/14/2024 11:04 AM EDT): [facility]. Diagnosed with psoriasis in the 3rd grade She does have psoriasis of her scalp, stomach and legs. Treated with topical steroids per Dermatology Assessment & Plan (04/08/2024 2:13 PM EST): [facility]. Diagnosed with psoriasis in the 3rd grade Worsening in scalp Treated with topical steroids per Dermatology Assessment & Plan (11/27/2023 2:12 PM EDT): [facility]. Diagnosed with psoriasis in the [...] EDT): Status post left shoulder steroid injection [facility] Orthopedics 04/04/22 MRI left shoulder 04/01/22: Partial thickness articular surface tear of the supraspinatus tendon greater than 50%. Probable small nondisplaced fracture of the greater tuberosity with adjacent bone marrow edema. However, focal osteonecrosis could have similar appearance. Mild AC joint arthrosis with moderate subacromial/subdeltoid bursitis. Ibuprofen upset her stomach -Follow-up [facility] Assessment & Plan (04/07/2024 12:44 PM EST): Status post left shoulder steroid injection [facility] 04/04/22 MRI left shoulder 04/01/22: Partial thickness articular surface tear of the supraspinatus tendon greater than 50%. Probable small nondisplaced fracture of the greater tuberosity with adjacent bone marrow edema. However, focal osteonecrosis could have similar appearance. Mild AC joint arthrosis with moderate subacromial/subdeltoid bursitis. Ibuprofen upset her stomach -Follow-up [facility] Assessment & Plan (11/27/2023 3:39 PM EDT): Status post left shoulder steroid injection [facility] Orth[facility] 04/04/22 MRI left shoulder 04/01/22: Partial thickness articular surface tear of the supraspinatus tendon greater than 50%. Probable small nondisplaced fracture of the greater tuberosity with adjacent bone marrow edema. However, focal osteonecrosis could have similar appearance. Mild AC joint arthrosis with moderate subacromial/subdeltoid bursitis. Ibuprofen upset her stomach -Follow-up [facility] Psoriatic arthritis of multiple joints Assessment [...] Prior ibuprofen upset stomach-follows with GI Dr. Watts/[facility]. Suspect psoriatic arthritis with psoriasis. HLA-B27 [...] Prior ibuprofen upset stomach-follows with GI Dr. Watts/[facility] Orth[facility]. Suspect psoriatic arthritis with psoriasis. HLA-B27 [...] Prior ibuprofen upset stomach-follows with GI Dr. Watts/[facility] Orth[facility]. Suspect psoriatic arthritis with psoriasis. 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 [employer] Other info: Depression 04/30/2014 Anxiety attack Immunizations [...] Date Smoking Tobacco: Every Day Cigarettes 1.5 30.8 Started: 1996 Smokeless Tobacco: Never Alcohol Use [...] Description 02/02/2025 4:15 PM EDT Office Visit [facility] R[facility] [address] [address] Jam Melo MD [address] [address] Health Maintenance Due Date Last Done Comments Pneumococcal Vaccine 0-49 (1 of 2 - PCV) 2002 ANNUAL PHYSICAL 09/04/2016 Annual Gynecologic Pelvic and Breast Exam 09/05/2017 09/04/2016 TDAP/TD VACCINES (3 - Td or Tdap) 10/22/2017 008, 01/06/1999 MAMMOGRAM 2023 INFLUENZA VACCINE 11/28/2024 HEPATITIS C SCREENING Completed 11/27/2023 Procedures Procedure [...] ve Non-Reacti ve 11/28/2023 12:09 AM EDT [facility] Hep A IgM Non-Reacti ve Non-Reacti ve 11/28/2023 12:09 AM EDT [facility] Hep B C IgM Non-Reacti ve Non-Reacti ve 11/28/2023 12:09 AM EDT [facility] Hepatitis C Ab Non-Reacti ve Non-Reacti ve 11/28/2023 12:09 AM EDT [facility] Blood Venipuncture / Unknown 11/27/2023 3:11 PM EDT 11/27/2023 3:12 PM EDT Narrative [facility] - 11/28/2023 12:09 AM EDT Results may be falsely decreased if patient taking Biotin. Jam Melo MD LAB BLOOD ORDERABLES Final Result [facility]
[address] [place] [address], * SCANNED - PAP SMEAR (09/04/2016) us Bonifacio Montalvo MD CHART REVIEW TABS Final Re sult from Last 3 Months or Most Recently Relevant to Health Maintenance Insurance [facility][note 3] [address] COMMERCIAL [place] [address] Care Teams Wool Hat Finisher Relationship Specialty Start Date End Date Avis Jain APRN [address] [place] [address] PCP - General Internal Medicine 11/27/23
--- OUTSIDE RECORDS SUMMARY | 2025-02-01 14:54 | XMS_ITS ---
Care Plan - [facility], [facility] Created on: February 01, 2025 DeoRenu richmond : 1985 Sex: Female Author Organization [facility] Address [address] [place] [address] Phone Care Team Providers Care Candles Pourer Name Role Phone Kali PURI, Shaggy P Unavailable [phone] SLIME PURI, JYOTI Salgado Primary Care Provider [phone]
--- OUTSIDE RECORDS SUMMARY | 2025-02-01 14:55 | XMS_ITS | Data Portability ---
Author Organization [place] - [facility] Address [address] [place] [address] Care Team Providers Care Sewage Plant Supervisor Name Role Phone TANYA GUZMAN Referring Provider TANYA GUZMAN Primary Care Provider Assessment No assessment recorded. Plan of Treatment Reminders Order Date Submit Date Provider Last Modified By Organization Details Last Modified Time Details Appointments None recorded. Lab None recorded. Referral None recorded. Procedures None recorded. Surgeries None recorded. Imaging None recorded. Medication Orders omeprazole 20 mg capsule,del ayed release [address] [facility], [address] [place] [address], [address], [place], [address], 16:21:59 Patient TargetsNo targets recorded. Patient InstructionsNo [...] Date Recorded Body weight Heart rate Systolic And Diastolic Provider Name and Address Organization Details Last Updated DateTime 02/09/2022 37299.15 g 91 /min 112/62 mm[Hg] Rosa Mcgee [place] [facility] [place] 02/09/2022 14:09:27 Social History None recorded. Functional Status None recorded. Mental Status None recorded. Family History Nothing Reported. Medical History No medical history recorded. Gynecological HistoryNo gynecological history recorded. Obstetrics History GPAL:G 0 P 0 0 0 0 Past Encounters Encounter ID Performer Location Encounter Start Date Encounter Closed Date Diagnosis/Indication Diagnosis SNOMED-CT Code Diagnosis ICD10 Code Diagnosis IMO Codes Diagnosis Note [id number] Adrianna Askew NP [facility] [address] [address] 02/09/2022 13:55:45 02/09/2022 15:30:55 Dark stools 15933758 R19.5 - Colonoscop y scheduled- advised Bismuth and iron supplement s also can give stool the appearance of being dark Heartburn 99442814 R12 -Stop taking NSAIDs-Slim id alcohol, NSAIDS, or trigger foods-Omep razole BID x 12 weeks. Consider decreasing to once daily at follow up.- EGD scheduled [id number] Adrianna Askew NP [facility] [address] [address] 05/05/2022 11:08:57 05/05/2022 11:23:02 Gastritis 2553567 K29.70 - continue omeprazole once daily- stay [...] Member ID Guarantor Name 05/12/2022 1 [employer] ([place]) [id number] Renu Desouza [id number] Renu Desouza Notes Date Note Type Note Provider Name and Address Organization Details Recorded Time 02/09/2022 text/html ROS as noted in the HPI Patient is a 36 year old female referred to our office by Dr Barragan in [place]. Reports black stool, intermittent dysphagia. Reports heartburn and nausea. Denies hematemesis or vomiting. Denies constipation. Reports stool is typically loose. Still has gall bladder. Does not take Iron supplements or Bismuth. Takes Aleve 8 tablets daily. Adrianna Askew NP [address], [place], [address], [facility] & [place] 02/09/2022 16:23:09 05/05/2022 text/html ROS as noted in the HPI (02/09/22)Patient is a 36 year old female referred to our office by Dr Barragan in [place]. Reports black stool, intermittent dysphagia. Reports heartburn [...] evaluation. Adrianna Askew NP [address], [place], [address], [facility] 05/05/2022 11:30:07 OBGyn Episode No OBEpisode recorded.
--- OUTSIDE RECORDS SUMMARY | 2025-02-01 14:55 | XMS_ITS | Clinical Summary ---
Author Organization [facility] Address [address] [place] [address] Phone Care Team Providers Care Equal Employment Opportunity Officer Name Role Phone Kali PURI, Shaggy Cortes Unavailable [phone] JYOTI PALENCIA MD Primary Care Provider [phone] Reason for Visit and Chief Complaint The Chief Complaint is: L shoulder pain Problems Includes: Problems addressed during this encounter and other active Problems Current Visit Onset Date Resolved Date Provider Vandana lawrence Status Joint Pain Shoulder Left 04/04/2022 Shaggy Bass MD Active Last Documented On 2 10:14AM ; [facility] Plan of Treatment Pending Tests Order Diagnosis Results Due Ordering P rovider Therapy - Physical Therapy Shoulder 04/04/22 Shaggy Bass MD Last Documented On 2 11:44AM ; [facility] Assessments Includes: Assessments from this encounter Findings [...] - Last Documented On 04/04/2022 11:44AM ; [facility] PHYSICAL EXAM - Last Documented On 04/04/2022 11:44AM ; [facility] CONSTITUTIONAL: Well developed, well groomed, well nourished patient in no acute distress who appears stated age, height and weight. - Last Documented On 04/04/2022 11:44AM ; [facility] PSYCHIATRIC: The patient is alert and oriented to person, place, date and situation. Mood and affect are normal for current situation. - Last Documented On 04/04/2022 11:44AM ; [facility] NEUROLOGICAL: Sensation normal bilateral upper and lower extremities. - Last Documented On 04/04/2022 11:44AM ; [facility] LYMPHATIC: No pitting edema noted in the lower extremities. - Last Documented On 04/04/2022 11:44AM ; [facility] SKIN: No lesions noted on upper or lower extremities. Skin is dry, warm and with normal turgor. - Last Documented On 04/04/2022 11:44AM ; [facility] VASCULAR: No swelling in upper or lower extremities other than described below in extremity exam. Radial pulses normal in both upper extremities. - Last Documented On 04/04/2022 11:44AM ; [facility] GAIT AND STATION: Normal gait without assistive devices. Station normal. - Last Documented On 04/04/2022 11:44AM ; [facility] LEFT SHOULDER: No atrophy. tenderness to palpation [...] - Last Documented On 04/04/2022 11:44AM ; [facility] RIGHT SHOULDER: No atrophy. No tenderness to [...] - Last Documented On 04/04/2022 11:44AM ; [facility] Cervical Spine: No tenderness to palpation. No pain with flexion, extension, lateral rotation, or lateral bending of the cervical spine. Negative Spurling sign. - Last Documented On 04/04/2022 11:44AM ; [facility] ASSESSMENT AND PLAN - Last Documented On 04/04/2022 11:44AM ; [facility] Initial visit for [...] - Last Documented On 04/04/2022 11:44AM ; [facility] LEFT SHOULDER INJECTION-After [...] - Last Documented On 04/04/2022 11:44AM ; [facility] Medical Equipment - Implanted Devices Includes: Current Devices No Medical Equipment Recorded Medications Includes: Medications discussed during this encounter and other current Medications Current Medications (continue as prescribed) Omeprazole 20 MG Oral Capsule Delayed Release 03/26/20 Provider: Libra Askew APRN Diagnosis: Last Documented On 3 2:48PM By Arya Peacock ; [facility] Medications Administered Includes: Administered Medications from this encounter No Administered Medications Recorded Vital Signs Includes: Vital Signs from this encounter Vital Name 04/04/2022 10:31A Blood Pressure Sitting (mmHg) 120/77 Pulse Rate-Sitting (bpm) 83 Height (in) 65 Weight (lb) 166 Body Mass Index (kg/m2) 27.6 Body Surface Area (m2) 1.8 Note: td Last Documented: On 04/04/2022 10:31A M ; [facility] Results Includes: Results discussed during [...] Next Available Non-Specified Physician Shaggy Bass MD [facility] B 04/04/20 22 9:37AM 11:34AM Insurance Includes: Active Insurance Policies Plan Name Member ID Group # Subscriber Relationship Effect [id number] Dates 1 - THE [employer] [id number] Renu Desouza Self 10/28/2022 - Un known Clinical Notes Includes: Clinical Notes from this encounter No Clinical Notes Recorded
--- OUTSIDE RECORDS SUMMARY | 2025-02-01 14:55 | XMS_ITS ---
Author Organization [facility] Address [address] [place] [address] Phone Care Team Providers Care Bobbin Drier Name Role Phone Kali PURI, Shaggy Cortes Unavailable [phone] SLIME PURI, JYOTI Salgado Primary Care Provider [phone] Problems Includes: Active, inactive, and resolved Problems All Visits Onset Date Resolved Date Provider Condition S tatus Joint Pain Shoulder Left 04/04/2022 Shaggy Bass MD Active Last Documented On 2 10:14AM ; [facility] Plan of Treatment Instructions to patient Lose weight Last Documented On 3 2:55PM ; [facility] Assessments Includes: Assessments for all patient encounters No Assessments Recorded Instructions Includes: Instructions for all patient encounters Instructions to patient Lose weight Last Documented On 3 2:55PM ; [facility] Medical Equipment - Implanted Devices Includes: Current and historical Devices No Medical Equipment Recorded Medications Includes: Current and historical Medications Current Medications (continue as prescribed) Omeprazole 20 MG Oral Capsule Delayed Release 03/26/20 22 Provider: Libra Askew APRN Diagnosis: Last Documented On 3 2:48PM By Arya Peacock ; [facility] Medications Administered Includes: Administered Medications in patient's chart No Administered Medications Recorded Results Includes: Results from 02/02/2024 through 02/01/2025 No Results Recorded For Specified Dates History of Present Illness History of Present Illness not supported for this document type No History of Present Illness Recorded Social History Description Last Updated Tobacco non-user 08/01/2022 Last Documented On 3 5:04PM ; [facility] Alcohol use 08/01/2022 Last Documented On 3 5:04PM ; [facility] Caffeine use 08/01/2022 Last Documented On 3 5:04PM ; [facility] Exercising regularly 08/01/2022 Last Documented On 3 5:04PM ; [facility] No recent change in diet 08/01/2022 Last Documented On 3 5:04PM ; [facility] Not using drugs 08/01/2022 Last Documented On 3 5:04PM ; [facility] Yes, current smoker. 08/01/2022 Last Documented On 3 5:04PM ; [facility] Smoking Status Unknown Procedures and Surgical History Surgical History Last Updated History of hysterectomy 08/01/2022 Last Documented On 3 5:04PM ; [facility] Medical History Includes: Medical History in patient's chart No Medical History Recorded Family History Includes: Family History in patient's chart Description Last Updated Diabetes mellitus 08/01/2022 Last Documented On 3 5:04PM ; [facility] Family history of cancer 08/01/2022 Last Documented On 3 5:04PM ; [facility] Family history of heart disease 08/02/19 23 Last Documented On 3 5:04PM ; [facility] Family history of osteoporosis 3 Last Documented On 3 5:04PM ; [facility] Family history of rheumatoid arthritis 0 08/01/2022 Last Documented On 3 5:04PM ; [facility] Family history of systemic hypertension 08/01/2022 Last Documented On 3 5:04PM ; [facility] Review of Systems Review of Systems [...] On 3 2:49PM ; [facility] Insurance Includes: Active Insurance Policies Plan Name Member ID Group # Subscriber Relationship Effect [id number] Dates 1 - THE [employer] [id number] Renu Desouza Self 10/28/2022 - Un known Clinical Notes Includes: Signed Clinical Notes starting from 04/13/2022 No Clinical Notes Recorded
--- NOTE | 2025-02-01 15:38 | ED_ITS ---
Discharge Plan Disposition Patient Disposition: Home, Self-Care Prescriptions Prescriptions: New ketorolac 10 mg tablet 10 mg PO Q8H PRN (Reason: pain) 5 Days Qty: 20 0RF methocarbamol 1,000 mg tablet 1,000 mg PO Q6H 7 Days Qty: 28 0RF No Action ascorbic acid (vitamin C) 500 mg tablet 500 mg PO DAILY zinc gluconate 50 mg tablet 50 mg PO DAILY cholecalciferol (vitamin D3) 25 mcg (1,000 unit) capsule 50 mcg PO DAILY cyclobenzaprine 10 mg tablet 10 mg PO HS PRN (Reason: muscle spasm) Qty: 30 0RF propranolol 60 mg capsule,extended release 24 hr See Rx Instructions .ROUTE .COMPLEX Qty: 90 3RF Dose Instruction: TAKE 1 CAPSULE BY MOUTH ONCE DAILY Rx Instructions: TAKE 1 CAPSULE BY MOUTH ONCE DAILY buspirone 7.5 mg tablet See Rx Instructions .ROUTE .COMPLEX Qty: 60 1RF Dose Instruction: TAKE 1 TABLET BY MOUTH TWICE DAILY Rx Instructions: TAKE 1 TABLET BY MOUTH TWICE DAILY cetirizine [Zyrtec] 10 mg Tablet,Chewable 10 mg PO DAILY ondansetron HCl 4 mg tablet 4 mg PO Q8H PRN (Reason: nausea and vomiting) 4 Days Qty: 12 0RF Referrals Follow up/Referrals: Jesus Farley DO [Staff Physician, Orthopedics] - See instructions Avis Jain APRN [Primary Care Provider, Medical] - See instructions Activity Restrictions/Add. Instructions Additional Instructions/Restrictions: Use heat on the shoulder. Take meds as directed. Wear the sling. X-ray read showed nothing acute. If any problems or concerns please return to the ED. Please call Dr. Farley's office tomorrow for appointment. Clinical Impressions Clinical Impression: Left shoulder strain Instructions Patient Instructions: Shoulder Sprain Print Language Print Language: Slovak Discharge ED Provider: Luis Louis General Adult HPI <Yani Bustos (ED), TOOLROOM ATTENDANT - Last Filed: 02/01/25 21:40> General Chief complaint: Extremity Injury, Upper Stated complaint: AO-02/02/25- Fall, Pain/ Swelling L shoulder Time Seen by Provider: 02/01/25 15:24 Mode of Arrival: Ambulatory Source of Information: Patient Description of Symptoms (Recalled from ER Triage Doc. by RN): Patient states she fell last night about 2300 and injured her left shoulder. Has not taken anything for the pain today. History of Present Illness HPI narrative: 39-year-old female presents to the ED today for falling in the yard playing with her daughter and landed on her left shoulder. She does not take anything for pain. She is afraid that she will be addicted. Patient is having a lot of swelling and pain to her left shoulder. She is unable to move it without extreme discomfort. Patient denies any other problems or concerns today. Related Data Home Medications ?Medication ?Instructions ?Recorded ?Confirmed cetirizine 10 mg chewable tablet 10 mg PO DAILY allerg ies 03/18/23 01/15/25 (Zyrtec) ascorbic acid (vitamin C) 500 mg 500 mg PO DAILY 08/2501/15/25 tablet cholecalciferol (vitamin D3) 25 50 mcg PO DAILY 01/15/25 mcg (1,000 unit) capsule zinc gluconate 50 mg tablet 50 mg PO DAILY 08/25/24 Previous Rx's ?Medication ?Instructions ?Recorded ondansetron HCl 4 mg tablet 4 mg PO Q8H PRN nausea and 04/21/24 vomiting 4 days #12 tabs cyclobenzaprine 10 mg tablet 10 mg PO HS PRN muscle sp asm #30 11/07/24 tabs propranolol 60 mg capsule,24 See Rx Instructions .Rout e 11/24/24 hr,extended release .COMPLEX #90 caps buspirone 7.5 mg tablet See Rx Instructions .Route 0 01/05/25 .COMPLEX #60 tabs ketorolac 10 mg tablet 10 mg PO Q8H PRN pain 5 days #20 02/01/25 tabs methocarbamol 1,000 mg tablet 1,000 mg PO Q6H 7 days # 28 tabs 02/01/25 Allergies Allergy/AdvReac Type Severity Reaction Status Date / Time Sulfa (Sulfonamide Allergy Intermediate I-HIVES Verified 01/15/25 14:37 Antibiotics) [facility] <Yani Bustos (ED), TOOLROOM ATTENDANT - Last Filed: 02/01/25 21:40> [facility] Disclaimer: The information contained in this section may have been updated after the patient was seen, as this information can be updated by other users. 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 Mild pulmonic regurgitation and RV dilation by prior echocardiogram Abnormal echocardiogram Palpitations SOB (shortness of breath) Chest pain Elevated white blood cell count Elevated liver enzymes Surgical History Hx of tubal ligation Hx of hysterectomy Family History Other Cancer Social History Smoking Status: Current every day smoker tobacco type: cigarettes packs per day: 1 second hand exposure: Yes alcohol intake: current alcohol intake frequency: holidays/special occasions only substance use type: denies use current occupational status: employed Travel in the last 8 weeks?: Inside the [place] household members: spouse and children housing: house current occupation: [employer] current occupational exposures/hazards: No caffeine: Yes Have you lived/traveled outside US in past 30 days?: No Contact w/someone who lives/traveled outside US past 30 days?: No Exposure to someone with infectious disease in past 14 days?: No Do you have a fever (greater than 100.4 F or 38 C)?: No Have you tested positive for COVID-19?: No Exposed to someone with COVID-19 in past 14 days?: No Do you have a sore throat?: No Do you have a cough?: No Do you have any weakness?: No Do you have any diarrhea?: No Are you experiencing any unusual bleeding?: No Do you have any muscle aches/pain?: No Do you have any abdominal pain?: No Are you experiencing loss of taste or smell?: No Other Medical History Have you received the Flu Vaccine for this season: No Have you received the Pneumonia Vaccine: No <Yani Bustos (ED), TOOLROOM ATTENDANT - Last Filed: 02/01/25 21:40> ROS Obtained: Yes Systems reviewed as appropriate & no additional complaints except as documented Constitutional Constitutional: Reports as per HPI Physical Exam <Yani Bustos (ED), TOOLROOM ATTENDANT - Last Filed: 02/01/25 21:40> General General appearance: alert Head Head exam: normocephalic Eye Eye exam: Present PERRL and EOMI ENT ENT exam: Present normal oropharynx and mucous membranes moist Neck Neck exam: Present full ROM and trachea midline Respiratory Respiratory exam: Present normal lung sounds bilaterally Cardiovascular Cardiovascular exam: Present regular rate, normal rhythm, normal heart sounds, +S1 and +S2 Extremities Exam Extremities exam: Present full ROM and normal capillary refill Neurological Exam Neurological exam: Present alert and oriented X3 Skin Skin exam: Present warm, dry and intact Medical Decision Making <Yani Bustos (ED), TOOLROOM ATTENDANT - Last Filed: 02/01/25 21:40> Medical Records Screening: Per USPSTF and CDC recommendations, given the prevalence of disease in our region, it is our hospital?s policy to screen for HIV and viral Hepatitis for all patients aged 18 and over and those with ongoing risk factors. [place] Inquiry Pt receiving controlled substance: No [place] was queried for this patient: No Vital Signs: 02/01/25 14:44 02/01/25 16:08 02/01/25 17:26 Temperature 98.3 F 98.2 F Temperature Source Oral Pulse Rate 70 80 Pulse Rate [Right Brachial] 68 Respiratory Rate 16 20 Blood Pressure 130/87 128/79 Blood Pressure [Right Arm] 139/86 Blood Pressure Mean [Right Arm] 103 Blood Pressure Source [Right Arm] Automatic Cuff Blood Pressure Position [Right Arm] Sitting 02 Sat by Pulse Oximetry 98 100 Oxygen Delivery Method Room Air Room Air Room Air Orders (Tests/Meds): ED MEDICATIONS Discontinued Medications Generic Name Dose Route Start Last Admin Trade Name Freq PRN Reason Stop Dose Admin Ketorolac Tromethamine 60 mg 02/01/25 16:56 02/01/25 17:19 Ketorolac 60mg/2ml Vial IM 02/01/25 16:57 60 mg ONCE ONE Administration Orphenadrine Citrate 60 mg 02/01/25 16:56 02/01/25 17:19 Orphenadrine Citrate 60mg/2ml Vial IM 02/01/25 16:57 60 mg ONCE ONE Administration ORDERS Category Date Time Status XR shoulder LT min 2V Stat Exams 02/01/25 14:50 Completed Medical Decision Narrative: patient is a 39-year-old presenting to the emergency department for evaluation of left shoulder pain and swelling. Patient is hemodynamically stable and no ntoxic-appearing upon arrival, afebrile. Differential diagnosis includes left shoulder pain, dislocation, AC separation, among others. Workup will be conducted specific imaging. Initial inventions include Norflex and Toradol after some discussion about pain management. Also gave her a sling initially. Discussed with Dr. Louis that the x-ray shows some AC separation but it does not look like any fracture or dislocation. Will send patient home and let her know about the final read. Patient is fine with this plan. Will send patient home with meds, Toradol and methocarbamol. Patient will call Dr. Farley in follow-up. Patient safe for discharge home. <Luis Louis MD - Last Filed: 02/01/25 22:06> Vital Signs: 02/01/25 14:44 02/01/25 16:08 02/01/25 17:26 Temperature 98.3 F 98.2 F Temperature Source Oral Pulse Rate 70 80 Pulse Rate [Right Brachial] 68 Respiratory Rate 16 20 Blood Pressure 130/87 128/79 Blood Pressure [Right Arm] 139/86 Blood Pressure Mean [Right Arm] 103 Blood Pressure Source [Right Arm] Automatic Cuff Blood Pressure Position [Right Arm] Sitting 02 Sat by Pulse Oximetry 98 100 Oxygen Delivery Method Room Air Room Air Room Air Orders (Tests/Meds): ED MEDICATIONS Discontinued Medications Generic Name Dose Route Start Last Admin Trade Name Efrenq PRN Reason Stop Dose Admin Ketorolac Tromethamine 60 mg 02/01/25 16:56 02/01/25 17:19 Ketorolac 60mg/2ml Vial IM 02/01/25 16:57 60 mg ONCE ONE Administration Orphenadrine Citrate 60 mg 02/01/25 16:56 02/01/25 17:19 Orphenadrine Citrate 60mg/2ml Vial IM 02/01/25 16:57 60 mg ONCE ONE Administration ORDERS Category Date Time Status XR shoulder LT min 2V Stat Exams 02/01/25 14:50 Completed Medical Decision Narrative: patient is a 39-year-old presenting to the emergency department for evaluation of left shoulder pain and swelling. Patient is hemodynamically stable and nontoxic-appearing upon arrival, afebrile. Differential diagnosis includes left shoulder pain, dislocation, AC separation, among others. Workup will be conducted specific imaging. Initial inventions include Norflex and Toradol after some discussion about pain management. Also gave her a sling initially. Discussed with Dr. Louis that the x-ray shows some AC separation but it does not look like any fracture or dislocation. Will send patient home and let her know about the final read. Patient is fine with this plan. Will send patient home with meds, Toradol and methocarbamol. Patient will call Dr. Farley in follow-up. Patient safe for discharge home. I was consulted by the MICHAEL, and we discussed the complexity of the problems being addressed. I approved the treatment and management plan for this patient's care in the emergency department, thus performing a substantive portion of the medical decision making. Luis Louis MD Critical Care <Yani Bustos (ED), TOOLROOM ATTENDANT - Last Filed: 02/01/25 21:40> Critical Care Time Critical Care Time: No
[2025-02-01 16:08] VITALS: BP 130/87; PULSE 70; O2SAT 100
[2025-02-01] MEDS: KETOROLAC 60MG/2ML VIAL 60 MG IM (17:19)
[2025-02-01] MEDS: ORPHENADRINE CITRATE 60MG/2ML VIAL 60 MG IM (17:19)
[2025-02-01 17:26] VITALS: BP 128/79; PULSE 80; RESP 20; TEMP 36.8; O2SAT 98
== END 2025-02-01 17:26 | disposition home or self-care (01) ==
PROVIDERS: Emergency Provider Emergency Medicine; PCP Nurse Practitioner Family
DX: S46.912A Strain of unspecified muscle, fascia and tendon at shoulder and upper arm level, left arm, initial encounter (principal); F17.210 Nicotine dependence, cigarettes, uncomplicated; W19.XXXA Unspecified fall, initial encounter
CPT/HCPCS: 73030; 96372; 99283; 99284; J1885; J2360

== ENCOUNTER 2025-02-19 16:00 | Outpatient (CLI) | payer OTHER, SELFPAY ==
--- OUTSIDE RECORDS SUMMARY | 2025-02-19 16:01 | XMS_ITS | Data Portability ---
Author Organization [place] - [facility] Address [address] [place] [id number] Care Team Providers Care Route Service Representative Name Role Phone TANYA GUZMAN Referring Provider TANYA GUZMAN Primary Care Provider [phone] Assessment No assessment recorded. Plan of Treatment Reminders Order Date Submit Date Provider Last Modified By Organization Details Last Modified Time Details Appointments None recorded. Lab None recorded. Referral None recorded. Procedures None recorded. Surgeries None recorded. Imaging None recorded. Medication Orders omeprazole 20 mg capsule,del ayed release [address] [facility], [address] [place] [address], [address], [place], [address], 16:21:59 Patient TargetsNo targets recorded. Patient InstructionsNo [...] Address Organization Details Last Updated DateTime 02/09/2022 86285.15 g 91 /min 112/62 mm[Hg] Rosa Mcgee [place] [facility] [place] [facility] [place] 02/09/2022 14:09:27 Social History None recorded. Functional Status None recorded. Mental Status None recorded. Family History Nothing Reported. Medical History No medical history recorded. Gynecological HistoryNo gynecological history recorded. Obstetrics History GPAL:G 0 P 0 0 0 0 Past Encounters Encounter ID Performer Location Encounter Start Date Encounter Closed Date Diagnosis/Indication Diagnosis SNOMED-CT Code Diagnosis ICD10 Code Diagnosis IMO Codes Diagnosis Note [id number] Adrianna Askew NP [facility] [address] [address] 02/09/2022 13:55:45 02/09/2022 15:30:55 Dark stools 85347422 R19.5 - Colonoscop y scheduled- advised Bismuth and iron supplement s also can give stool the appearance of being dark Heartburn 35344462 R12 -Stop taking NSAIDs-Slim id alcohol, NSAIDS, or trigger foods-Omep razole BID x 12 weeks. Consider decreasing to once daily at follow up.- EGD scheduled [id number] Adrianna Askew NP [facility] [address] [address] 05/05/2022 11:08:57 05/05/2022 11:23:02 Gastritis 7548905 K29.70 - continue omeprazole once daily- stay [...] ID Guarantor Name 05/12/2022 1 [employer] ([place]) [id number] Renu Desouza [id number] Renu Desouza Notes Date Note Type Note Provider Name and Address Organization Details Recorded Time 02/09/2022 text/html ROS as noted in the HPI Patient is a 36 year old female referred to our office by Dr Barragan in [place]. Reports black stool, intermittent dysphagia. Reports heartburn and nausea. Denies hematemesis or vomiting. Denies constipation. Reports stool is typically loose. Still has gall bladder. Does not take Iron supplements or Bismuth. Takes Aleve 8 tablets daily. Adrianna Askew NP [address], [place], [address], [facility] [place] 02/09/2022 16:23:09 05/05/2022 text/html ROS as noted in the HPI (02/09/22)Patient is a 36 year old female referred to our office by Dr Barragan in [place]. Reports black stool, intermittent dysphagia. Reports heartburn [...] evaluation. Adrianna Askew NP [address], [place], [address], [facility] 05/05/2022 11:30:07 OBGyn Episode No OBEpisode recorded.
--- OUTSIDE RECORDS SUMMARY | 2025-02-19 16:01 | XMS_ITS | Clinical Summary ---
Author Organization [facility] Address [address] [place] [address] Care Team Providers Care Eyeglass Inspector Name Role Phone Avis Jain APRN Primary Care Provider + [phone] Allergies Active Allergy Reactions Criticality Noted Date Comments Sulfa Antibiotics Anaphylaxis High 09/04/2016 Medications Cetirizine HCl (ZYRTEC PO) Take 1 tablet by mouth Daily. Active Active Problems Problem Noted Date Diagnosed Date Psoriasis 11/27/2023 Assessment & Plan (08/14/2024 11:04 AM EDT): [facility]. Diagnosed with psoriasis in the 3rd grade She does have psoriasis of her scalp, stomach and legs. Treated with topical steroids per Dermatology Assessment & Plan (04/08/2024 2:13 PM EST): [facility]. Diagnosed with psoriasis in the 3rd grade Worsening in scalp Treated with topical steroids per Dermatology Assessment & Plan (11/27/2023 2:12 PM EDT): [facility]. Diagnosed with psoriasis in the [...] EDT): Status post left shoulder steroid injection [facility] 04/04/22 MRI left shoulder 04/01/22: Partial thickness articular surface tear of the supraspinatus tendon greater than 50%. Probable small nondisplaced fracture of the greater tuberosity with adjacent bone marrow edema. However, focal osteonecrosis could have similar appearance. Mild AC joint arthrosis with moderate subacromial/subdeltoid bursitis. Ibuprofen upset her stomach -Follow-up [facility] Assessment & Plan (04/07/2024 12:44 PM EST): Status post left shoulder steroid injection [facility] 04/04/22 MRI left shoulder 04/01/22: Partial thickness articular surface tear of the supraspinatus tendon greater than 50%. Probable small nondisplaced fracture of the greater tuberosity with adjacent bone marrow edema. However, focal osteonecrosis could have similar appearance. Mild AC joint arthrosis with moderate subacromial/subdeltoid bursitis. Ibuprofen upset her stomach -Follow-up [facility] Assessment & Plan (11/27/2023 3:39 PM EDT): Status post left shoulder steroid injection [facility] 04/04/22 MRI left shoulder 04/01/22: Partial thickness articular surface tear of the supraspinatus tendon greater than 50%. Probable small nondisplaced fracture of the greater tuberosity with adjacent bone marrow edema. However, focal osteonecrosis could have similar appearance. Mild AC joint arthrosis with moderate subacromial/subdeltoid bursitis. Ibuprofen upset her stomach -Follow-up [facility] Psoriatic arthritis of multiple joints Assessment [...] Prior ibuprofen upset stomach-follows with GI Dr. Watts/[facility]. Suspect psoriatic arthritis with [...] Prior ibuprofen upset stomach-follows with GI Dr. Watts/[facility]. Suspect psoriatic arthritis with [...] Prior ibuprofen upset stomach-follows with GI Dr. Watts/[facility]. 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 [employer] Other info: Depression 04/30/2014 Anxiety attack [...] 08/14/2024 10:39 AM EDT Plan of Treatment Health Maintenance Due Date Last Done Comments [...] Non-Reacti ve 11/28/2023 12:09 AM EDT [facility] Hep A IgM Non-Reacti ve Non-Reacti ve 11/28/2023 12:09 AM EDT [facility] Hep B C IgM Non-Reacti ve Non-Reacti ve 11/28/2023 12:09 AM EDT [facility] Hepatitis C Ab Non-Reacti ve Non-Reacti ve 11/28/2023 12:09 AM EDT [facility] Blood Venipuncture / Unknown 11/27/2023 3:11 PM EDT 11/27/2023 3:12 PM EDT Narrative [facility] - 11/28/2023 12:09 AM EDT Results may be falsely decreased if patient taking Biotin. Jam Melo MD LAB BLOOD ORDERABLES Final Result [facility]
[address] [place] [address], * SCANNED - PAP SMEAR (09/04/2016) Bonifacio Montalvo MD CHART REVIEW TABS Final Re sult from Last 3 Months or Most Recently Relevant to Health Maintenance Insurance [facility] [place] [employer] [place] [id number] Care Teams Eyeglass Inspector Relationship Specialty Start Date End Date Avis Jain APRN [address] [place] [id number] PCP - General Internal Medicine 11/27/23
--- NOTE | 2025-02-19 16:15 | MR_ITS ---
PROCEDURE INFORMATION: Exam: MR Left Upper Extremity Joint Without Contrast; Shoulder Exam date and time: 02/19/2025 4:22 PM Age: 40 years old Clinical indication: Pain; Shoulder; Left; Additional info: Left shoulder pain. Fall x 3 weeks ago. Lrom. Hurts to touch TECHNIQUE: Imaging protocol: Magnetic resonance imaging of the left upper extremity without contrast. Exam focused on the shoulder. COMPARISON: MR SHOULDER LT WO CON 04/01/2022 8:28 AM FINDINGS: Bones/joints: No acute fracture. Normal bone marrow signal. No acute fracture. Mild sprain in the deltoid muscle over the acromioclavicular joint. Glenoid labrum: Mild indistinctness and increased signal of the superior labrum, with trace insinuating fluid , suggestive of a labral contusion and tear, with mild periosteal stripping of the anterior superior glenoid. Low-grade contusion propagates to the anterior inferior labrum. The posterior labrum is normal superiorly and inferiorly. Supraspinatus tendon: [id number] tendinosis or contusion of the supraspinatus tendon, without distinct tear. Infraspinatus tendon: [id number] tendinosis or contusion of the infraspinatus tendon without distinct tear. Subscapularis tendon: [id number] tendinosis of the subscapularis tendon or contusion, without distinct tear. [id number] tendinosis of the (superior fibers) of the subscapularis tendon. A component might represent mild acute sprain. Teres minor tendon: Unremarkable. No evidence of tear. Tendon of biceps brachii: Trace tenosynovitis of the biceps tendon. Mild thickening and increased signal of the intra-articular biceps extending to the labral anchor may represent a mild sprain. The biceps labral anchor appears mildly heterogeneous. Acromioclavicular ligament: The superior acromioclavicular ligament is thickened with increased signal. Suspect high-grade partial-thickness versus full-thickness tear of the superior ligament. The inferior acromioclavicular ligament is thinned and with increased signal. Suspect low-grade partial-thickness tear from the inferior cortex of the acromion. Possible mild periosteal stripping in the distal clavicle. Coracoclavicular ligament: Apparent moderate sprain or low-grade partial-thickness of the trapezoid (lateral coracoclavicular) ligament. The conoid ligament is not well seen. Glenohumeral ligaments: See Acromioclavicular ligament finding. Soft tissues: Trace subacromial/subdeltoid fluid is present, likely related to acromioclavicular joint sprain. Moderate surrounding soft tissue edema at the acromioclavicular joint. The joint is mildly widened with mild craniocaudal offset, a component of which may be due to positioning and modality. Normal muscle bulk and signal. IMPRESSION: 1. Acromioclavicular and coracoclavicular ligament sprains with high-grade partial-thickness tearing suspected of the superior ligament. 2. Mild to moderate tendinosis and or contusion of the rotator cuff tendons without distinct tear. 3. Suspect contusion and possible minimally displaced tear of the superior labrum with mild periosteal stripping of the anterior superior glenoid. Mild contusion of the anterior inferior labrum. 4. [id number] traumatic contusion of the intra-articular biceps tendon extending to the biceps labral anchor and superior labrum.
== END 2025-02-19 23:59 | disposition home or self-care (01) ==
LOC: RAD 16:00
PROVIDERS: PCP Nurse Practitioner Family; Visit Provider Physician Assistant
DX: S43.52XA Sprain of left acromioclavicular joint, initial encounter (principal); S43.82XA Sprain of other specified parts of left shoulder girdle, initial encounter; S40.012A Contusion of left shoulder, initial encounter; S40.022A Contusion of left upper arm, initial encounter
CPT/HCPCS: 73221